=== PATIENT | male | born 1945 | race American Indian/Alaskan Native ===

== ENCOUNTER 2016-07-03 11:03 | Inpatient (IN) | payer MEDICARE ==
[2016-07-03] MEDS ORDERED: MORPHINE IV ONE (13:05)
[2016-07-03] MEDS ORDERED: ZOFRAN IV ONE (13:05)
--- NOTE | 2016-07-03 14:11 | Emergency Department Report ---
ED Abdominal Pain HPI - General Chief Complaint: Abdominal Pain Stated Complaint: ABD PAIN Time Seen by Provider: 07/03/16 12:52 Source: patient, EMS Mode of arrival: Stretcher Limitations: No Limitations - History of Present Illness Initial Comments: 71-year-old male presents to the emergency department via EMS complaining of abdominal pain. Patient reports the onset of lower abdominal sharp pain that began shortly after beginning his dialysis treatment for today. Patient was unable to tolerate his dialysis treatment due to the pain. Pain has persisted even after the treatment was discontinued. He denies associated nausea, vomiting, chest pain, or shortness of breath. There are no other complaints. MD Complaint: abdominal pain -: Sudden, This afternoon Location: suprapubic Radiation: none Severity: moderate Quality: sharp Consistency: constant Improves With: nothing Worsens With: nothing Associated Symptoms: denies other symptoms - Related Data Home Medications Medication Instructions Recorded Confirmed Last Taken Furosemide 80 mg PO DAILY 04/29/13 08/23/15 08/22/15 Gabapentin [Neurontin] 300 mg PO BID 04/29/13 08/23/15 08/22/15 Amlodipine Besylate/Benazepril 1 cap PO DAILY 06/15/14 08/23/15 08/22/15 [amLODIPine-Benazepril 10/40 mg] Carvedilol [Coreg] 25 mg PO BID 06/15/14 08/23/15 08/22/15 Hydralazine HCl [hydrALAZINE] 100 mg PO BID 06/15/14 08/23/15 08/22/15 Insulin NPH Hum/Reg Insulin Hm 10 unit SQ BID 06/15/14 08/23/15 08/22/15 [HumuLIN 70-30 Vial] Cinacalcet [Sensipar] 30 mg PO QDAY 04/04/15 08/23/15 08/22/15 Fluticasone [Flonase] 1 spray NS QDAY 04/04/15 08/23/15 08/22/15 Tiotropium [Spiriva] 18 mcg IH QDAY 04/04/15 08/23/15 08/22/15 Digoxin [Lanoxin] 0.125 mg PO DAILY 08/23/15 08/23/15 08/22/15 Mometasone/Formoterol [Dulera 200 2 puff IH BID PRN 02/08/23/15 08/22/15 Mcg/5 Mcg Inhaler] OLANzapine [ZyPREXA] 5 mg PO QHS 08/23/15 08/23/15 08/22/15 Sevelamer Carbonate [Renvela] 2.4 gm PO TIDWM 08/23/15 08/23/15 08/22/15 Previous Rx's Medication Instructions Recorded Last Taken Type Warfarin [Coumadin] 5 mg PO DAILY@1700 #20 tablet 08/24/15 Unknown Rx Allergies Allergy/AdvReac Type Severity Reaction Status Date / Time No Known Allergies Allergy Verified 07/10/14 14:19 ED Review of Systems ROS: Stated complaint: ABD PAIN Other details as noted in HPI Comment: All other systems reviewed and negative Gastrointestinal: abdominal pain ED Past Medical Hx - Past Medical History Previous Medical History?: Yes Hx Hypertension: Yes 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, expressive dysphasia) Hx Heart Attack/AMI: Yes Hx Congestive Heart Failure: Yes Hx Diabetes: Yes (since 1985) Hx GERD: Yes (hospitalized for reflux 07/08/14) Hx Renal Disease: Yes Hx Arthritis: Yes Hx Asthma: Yes Hx COPD: Yes Additional medical history: Tricuspid and mitral regurgitation - Surgical History Past Surgical History?: Yes Hx Open Heart Surgery: No Hx Internal Defibrillator: Yes (2004, 2013) Additional Surgical History: bilateral BKA - Family History Family history: hypertension - Social History Smoking Status: Never Smoker Substance Use Type: None - Medications Home Medications: Home Medications Medication Instructions Recorded Confirmed Last Taken Type Furosemide 80 mg PO DAILY 04/29/13 08/23/15 08/22/15 History Gabapentin [Neurontin] 300 mg PO BID 04/29/13 08/23/15 08/22/15 History Amlodipine Besylate/Benazepril 1 cap PO DAILY 06/15/14 08/23/15 08/22/15 History [amLODIPine-Benazepril 10/40 mg] Carvedilol [Coreg] 25 mg PO BID 06/15/14 08/23/15 08/22/15 History Hydralazine HCl [hydrALAZINE] 100 mg PO BID 06/15/14 08/23/15 08/22/15 History Insulin NPH Hum/Reg Insulin Hm 10 unit SQ BID 06/15/14 08/23/15 08/22/15 History [HumuLIN 70-30 Vial] Cinacalcet [Sensipar] 30 mg PO QDAY 04/04/15 08/23/15 08/22/15 History Fluticasone [Flonase] 1 spray NS QDAY 04/04/15 08/23/15 08/22/15 History Tiotropium [Spiriva] 18 mcg IH QDAY 04/04/15 08/23/15 08/22/15 History Digoxin [Lanoxin] 0.125 mg PO DAILY 08/23/15 08/23/15 08/22/15 History Mometasone/Formoterol [Dulera 200 2 puff IH BID PRN 08/23/15 08/23/15 08/22/15 History Mcg/5 Mcg Inhaler] OLANzapine [ZyPREXA] 5 mg PO QHS 08/23/15 08/23/15 08/22/15 History Sevelamer Carbonate [Renvela] 2.4 gm PO TIDWM 08/23/15 08/23/15 08/22/15 History Warfarin [Coumadin] 5 mg PO DAILY@1700 #20 tablet 08/24/15 Unknown Rx ED Physical Exam - General Limitations: No Limitations General appearance: alert, in no apparent distress - Head Head exam: Present: atraumatic, normocephalic - Eye Eye exam: Present: normal appearance, PERRL, EOMI - ENT ENT exam: Present: normal exam, normal orophraynx, mucous membranes moist - Neck Neck exam: Present: normal inspection, full ROM. Absent: tenderness - Respiratory Respiratory exam: Present: normal lung sounds bilaterally. Absent: respiratory distress - Cardiovascular Cardiovascular Exam: Present: regular rate, normal rhythm, normal heart sounds - GI/Abdominal GI/Abdominal exam: Present: soft, tenderness (mild suprapubic tenderness to palpation), normal bowel sounds. Absent: distended, guarding, rebound - Extremities Exam Extremities exam: Present: normal inspection (patient is status post bilateral BKA), full ROM. Absent: tenderness - Back Exam Back exam: Present: normal inspection, full ROM. Absent: tenderness - Neurological Exam Neurological exam: Present: alert, oriented X3, motor sensory deficit - Skin Skin exam: Present: warm, dry, intact ED Course Vital Signs 07/03/16 11:20 Temperature 97.6 F Pulse Rate 60 Blood Pressure 154/51 O2 Sat by Pulse 100 Oximetry ED Medical Decision Making - Lab Data Result diagrams: 07/03/16 14:26 07/03/16 14:26 - Medical Decision Making Laboratory results reviewed and discussed with the patient. I have spoken with Dr. Eldridge, nephrology. CT of the abdomen and pelvis has been requested by the hospitalist, who will admit. - Differential Diagnosis abdominal pain, bowel ischemia, bladder spasm Critical care attestation.: If time is entered above; I have spent that time in minutes in the direct care of this critically ill patient, excluding procedure time. ED Disposition Clinical Impression: End stage renal disease on dialysis, Suprapubic abdominal pain Disposition: OP ADMITTED IP TO THIS HOSP Is pt being admited?: Yes Condition: Stable Time of Disposition: 15:18
[2016-07-03 14:34] LABS: Basophils % (Auto) 1.1 % (0.0-1.8); Eosinophils % (Auto) 7.8 % (0.0-4.3); Hematocrit 37.3 % (35.5-45.6); Mean Corpuscular HGB Conc 32 % (32-34); Mean Corpuscular Hemoglobin 30 pg (28-32); Mean Corpuscular Volume 92 fl (84-94); Platelet Count 90 K/mm3 (140-440); Red Blood Count 4.06 M/mm3 (3.65-5.03); Red Cell Distribution Width 20.2 % (13.2-15.2)
[2016-07-03 14:54] LABS: Alanine Aminotransferase 13 units/L (7-56); Albumin 3.8 g/dL (3.9-5); Alkaline Phosphatase 84 units/L (35-129); Anion Gap 23 mmol/L; BUN/Creatinine Ratio 4.81; Bilirubin,Total 0.4 mg/dL (0.1-1.2); Blood Urea Nitrogen 40 mg/dL (9-20); Calcium 8.9 mg/dL (8.4-10.2); Carbon Dioxide 27 mmol/L (22-30); Glucose 141 mg/dL (75-100); Potassium 4.6 mmol/L (3.6-5.0); Sodium 139 mmol/L (137-145); Total Protein 7.8 g/dL (6.3-8.2)
[2016-07-03 14:55] LABS: Bilirubin,Direct < 0.2 mg/dL (0-0.2)
--- NOTE | 2016-07-03 15:51 | Admit Criteria Form ---
Admission Criteria Documentation: RENAL FAILURE, CHRONIC Clinical Indications for Admission to Inpatient Care (Place 'X' for any and all applicable criteria): Admission is indicated for ANY ONE of the following (1)(2)(3)(4)(5): [ X]I. Inpatient admission required rather than observation care (Use Renal Failure, Chronic: Observation Care Criteria as appropriate) because of ANY ONE of the following: [ ]a) Volume overload or uremic symptoms (eg, clinically significant pulmonary edema, hypertension, pericarditis, acidosis) too severe for, or not responsive (eg, for over 24 hours) to emergency department or observation care dialysis or treatment regimen (11) [ ]b) Hemodynamic instability that is severe or persistent [ ]c) Respiratory distress that is severe or persistent (11) [ ]d) Clinically significant electrolyte abnormality that requires inpatient care (eg,hyperkalemia with severe ECG findings)[B] [ ]e) Supplement O2 or respiratory therapy for over 24hrs that is performable only in acute inpatient setting [ ]f) Continuous IV infusion of anticoagulation, platelet inhibitor, vasoactive, or Antiarrhythmic medication (15), [ ]g) Pulmonary artery catheter monitoring [ ]h) Temporary pacemaker placement [ ]i) Emergent pericardiocentesis [ X]j) Other condition, treatment or monitoring requiring inpatient admission [ ]II. Unexplained syncope [A] [ ]III. Recurrent seizures [ ]IV. Severe infections not treatable in outpatient setting (eg, peritonitis)(9 ) [ ]V. Cardiac arrhythmias of immediate concern [ ]. Encephalopathy [ ]VII.Bleeding abnormalities (eg, platelet dysfunction) with active (eg, gastrointestinal) bleeding Extended stay beyond goal length of stay may be needed for (3)(4)(35)(36): [ ]a) Continuing uremic complications [ ]b) Comorbidities or complications The original [employer] content created by [employer] has been revised. The portions of the content which have been revised are identified through the use of italic text or in bold, and [employer] [facility] [employer] has neither reviewed nor approved the modified material. All other unmodified content is copyright [employer]. Please see references footnoted in the original [facility] [facility] edition 2016 Admission Criteria Met: Yes
--- NOTE | 2016-07-03 16:37 | Cat Scan Report ---
CT ABDOMEN AND PELVIS WITHOUT CONTRAST: INDICATION: Lower abdominal pain while on dialysis. COMPARISON: 04/09/2015 FINDINGS: Noncontrast abdomen and pelvis CT performed. LUNG BASES: Much improved cardiomegaly and pericardial fluid, now within normal limits. Right lung base also now clear. Atherosclerotic calcifications and streak artifact from pacemaker leads again noted. Nonspecific distal esophageal wall thickening, not excluded for gastroesophageal reflux and/or hiatal hernia, amongst others. ABDOMEN: Please note that sensitivity to detect small visceral lesions is limited due to the absence of intravenous or oral contrast. Few faintly calcified gallstones dependently near the neck again noted measuring up to approximately 1.8 cm in size. Small splenic calcified granuloma. Otherwise, grossly unremarkable unenhanced liver, spleen, pancreas, adrenals, nonaneurysmal abdominal aorta and IVC. Extensive atherosclerotic vascular calcifications. No ascites or definite size significant adenopathy. Nonopacified GI tract evaluation limited, though grossly nonobstructive. Approximately 2.5 cm midline duodenal diverticulum along the third portion may again be noted. Normal appendix. Small fat-containing umbilical hernia with a transverse neck of approximately 1 cm. Kidneys again nonhydronephrotic bilaterally, though with mild increased perinephric stranding. Bilateral renal cortical hypodensities, predominantly subcentimeter with the largest left interpolar approximately 3.5 cm simple cyst again noted. PELVIS: Stable, suboptimally distended urinary bladder, seminal vesicles, prostate and rectosigmoid. No free fluid or significant adenopathy. Mild spinal bony degenerative changes and L1-L2 vacuum disc phenomenon again noted. Bilateral SI joint degenerative bridging with obliteration of joint space as well. CONCLUSION: 1. No acute CT abnormality with interval improvement in cardiomegaly and effusions since April 2015, as described. 2. Few other incidental findings, including cholelithiasis and extensive atherosclerotic vascular calcifications in this patient with underlying renal failure, amongst others, as above. Thank you for the opportunity to participate in this patient's care.
[2016-07-03] MEDS ORDERED: NON-FORMULARY (Mometasone/Formoterol [Dulera 200 Mcg/5 Mcg Inhaler] 2 PUFF) IH PRN (21:15)
[2016-07-03] MEDS ORDERED: BENAZEPRIL PO SCH (21:15)
[2016-07-03] MEDS ORDERED: AMLODIPINE BESYLATE PO SCH (21:15)
[2016-07-03] MEDS ORDERED: SPIRIVA IH SCH (21:15)
[2016-07-03] MEDS ORDERED: FUROSEMIDE 80 MG PO SCH (21:15)
--- NOTE | 2016-07-03 21:15 | Event Note ---
Date: 07/03/16 See H/p in reports Acute abdominal pain ESRD needing dialysis IDDM HTN HLD PAD Afib PN Depression
[2016-07-03] MEDS ORDERED: ZOFRAN IV PRN (21:39)
[2016-07-03] MEDS ORDERED: MILK OF MAGNESIA PO PRN (21:39)
[2016-07-03] MEDS ORDERED: TYLENOL PO PRN (21:39)
[2016-07-03] MEDS ORDERED: DULCOLAX PR PRN (21:39)
[2016-07-03] MEDS ORDERED: NOVOLOG SUB-Q ONE (21:54)
[2016-07-03] MEDS: NEURONTIN PO SCH (22:45)
[2016-07-03] MEDS: APRESOLINE PO SCH (22:48)
[2016-07-03] MEDS: LASIX PO SCH (23:03)
[2016-07-03] MEDS: SENSIPAR PO SCH (23:06)
[2016-07-03] MEDS: NORVASC PO SCH (23:13)
[2016-07-03 23:25] LABS: INR 4.38 (0.87-1.13)
--- NOTE | 2016-07-03 23:52 | History and Physical Report ---
CHIEF COMPLAINT: Abdominal pain since morning. HISTORY OF PRESENT ILLNESS: A 71-year-old -Citizen Of [place] male with multiple medical problems, bilateral below knee amputations, hypertension, end-stage renal disease, insulin-dependent diabetes, COPD, atrial fibrillation, and psychosis, who comes in for acute abdominal pain since late morning. The patient was undergoing dialysis and developed suprapubic pain, which is sharp, unable to tolerate dialysis because of the pain. The patient's pain has persisted even after the treatment was discontinued. Denies nausea, vomiting, diarrhea, chest pain, or shortness of breath. The pain is about 8 to 9 on a scale of 1 to 10, sharp and crampy pain in the suprapubic and periumbilical region. No fever, no chills. PAST MEDICAL HISTORY: As mentioned, significant for hypertension, insulin-dependent diabetes, cerebrovascular accident in 2012, bilateral below the knee amputations, insulin-dependent diabetes, end-stage renal disease, on dialysis, arthritis, asthma/COPD, and atrial fibrillation. PAST SURGICAL HISTORY: Internal defibrillator 2004, replaced in 2013 and bilateral BKA. FAMILY HISTORY: Significant for hypertension. SOCIAL HISTORY: He was never a smoker in the past. CURRENT HOME MEDICATIONS: Lasix 80 mg daily, Neurontin 300 mg twice a day, amlodipine 10/40 one capsule daily, Coreg 25 mg b.i.d., hydralazine 100 mg twice a day, insulin 70/30 ten units b.i.d., Sensipar 30 mg p.o. daily, Flonase 1 spray daily, Spiriva 18 mcg p.o. daily, Lanoxin 0.125 mg p.o. daily, Dulera 2 puffs b.i.d., Zyprexa 5 mg p.o. at bedtime, Renvela p.o. t.i.d. REVIEW OF SYSTEMS: Significant for acute onset of abdominal pain, suprapubic and periumbilical. Otherwise, review of systems is essentially negative. A 14-point review of systems done. PHYSICAL EXAMINATION: GENERAL: Elderly male, lying in bed. VITAL SIGNS: Blood pressure is 154/51, temperature is 97.6, pulse is 60, and sat is 100%. HEENT: Unremarkable. Pupils are equal and reactive. NECK: Supple, no lymphadenopathy, no thyromegaly. LUNGS: Clear to auscultation and percussion. Good air entry. ABDOMEN: Soft and benign. No hepatosplenomegaly. No guarding, no rigidity. Hernial orifices are normal. Some suprapubic tenderness present. EXTREMITIES: Revealed bilateral below knee amputations. No sacral decubitus. CENTRAL NERVOUS SYSTEM: Nonfocal exam. Not ____ at this point. LABORATORY DATA: Significant for white count of 8000, H and H are 12.0 and hematocrit is 37.3, and platelet count is 90,000. Sodium is 139, potassium is 4.6, bicarbonate is 27, BUN and creatinine are 40 and 8.3, AST of 13, ALT of 13, albumin is 3.8. EKG shows normal EKG and not available. CT of the abdomen shows cholelithiasis, it was done without contrast. No acute CT abnormality. Extensive atherosclerotic vascular calcifications with underlying renal failure. Liver, spleen and kidneys were normal. Kidneys are small. Calcified gallstones near the neck noted measuring up to 1.8 cm. In summary, CAT scan was other than atherosclerotic, vascular calcifications and cholelithiasis is normal. ASSESSMENT AND PLAN: 1. Acute abdominal pain, admitted for observation. We will get the Surgery input. We will keep him clear liquids for the time being. Dilaudid 0.5 q. 3 hours and Zofran 4 mg q. 3 hours p.r.n. 2. Insulin-dependent diabetes. Continue coverage. The patient is on clear liquids for the time being. 3. Hypertension. Continue amlodipine/benazepril 10/40 p.o. daily. 4. Peripheral neuropathy. Continue Neurontin 300 mg twice a day. 5. Congestive heart failure. Continue Lasix 80 mg p.o. daily. The patient does not make any urine. 6. Chronic obstructive pulmonary disease. Continue Dulera 100/5 two puffs b.i.d. 7. Atrial fibrillation. Continue Coumadin and digoxin 0.125 daily. 8. End-stage renal disease. Continue dialysis and also Renvela and Sensipar. Also, Dr. Eldridge is consulted. 9. Deep venous thrombosis prophylaxis, Lovenox 30 mg subcutaneous daily. A surgical consultation with Surgery is also requested. JOB# [id number] VSM/NTS
[2016-07-04] MEDS: ZESTRIL PO SCH ×2 (01:03→11:38)
[2016-07-04] MEDS: COREG PO SCH ×2 (01:04→11:37)
[2016-07-04] MEDS: FLONASE NS SCH ×2 (01:05→12:27)
[2016-07-04 06:44] LABS: Eosinophils % (Auto) 10.5 % (0.0-4.3); Hematocrit 34.5 % (35.5-45.6); Hemoglobin 10.7 gm/dl (11.8-15.2); Mean Corpuscular HGB Conc 31 % (32-34); Mean Corpuscular Hemoglobin 29 pg (28-32); Mean Corpuscular Volume 94 fl (84-94); Platelet Count 115 K/mm3 (140-440); Red Blood Count 3.68 M/mm3 (3.65-5.03); White Blood Count 8.4 K/mm3 (4.5-11.0)
[2016-07-04 06:56] LABS: INR 4.68 (0.87-1.13)
[2016-07-04 06:58] LABS: Albumin 3.5 g/dL (3.9-5); BUN/Creatinine Ratio 5.15; Bilirubin,Total 0.4 mg/dL (0.1-1.2); Calcium 8.7 mg/dL (8.4-10.2); Chloride 96.4 mmol/L (98-107); Potassium 4.8 mmol/L (3.6-5.0); Total Protein 6.9 g/dL (6.3-8.2)
[2016-07-04 07:06] LABS: Red Cell Distribution Width 20.8 % (13.2-15.2)
--- NOTE | 2016-07-04 07:51 | Progress Note ---
Assessment and Plan Assessment and plan: Lower abdominal pain - Patient's pain is subsided with pain medication - Surgery consult is placed End-stage renal disease on hemodialysis - Nephrology consulted IDDM - Patient is on insulin regimen Chronic systolic CHF - Stable - Continue home medications A. fib - On warfarin - INR is supratherapeutic - We will hold the next dose Hypertension - Uncontrolled - Continue all medications - May normalized after hemodialysis DVT prophylaxis - INR is supratherapeutic Disposition - Continue inpatient care History Interval history: No new complaints, no nursing issues overnight. No abdominal pain. Hospitalist Physical - Physical exam Narrative exam: Not in cardiopulmonary distress. The patient appeared well nourished and normally developed. Vital signs as documented. Head exam is unremarkable. No scleral icterus . Neck is without jugular venous distension, thyromegaly, or carotid bruits. Lungs are clear to auscultation. Cardiac exam reveals regular rate and Rhythm. First and second heart sounds normal. No murmurs, rubs or gallops. Abdominal exam reveals normal bowel sounds, no masses, no organomegaly and no aortic enlargement. W[employer]ATING O[employer]ATOR METAL: Alert and oriented 3. No focal weakness. - Constitutional Vitals: Temp Pulse Resp BP Pulse Ox 97.7 F 65 20 151/69 99 07/04/16 00:55 07/04/16 01:04 07/04/16 00:55 07/04/16 01:04 07/04/16 00:55 Results - Labs CBC & Chem 7: 07/04/16 06:11 07/04/16 06:11 Labs: Laboratory Last Values WBC 8.4 K/mm3 (4.5-11.0) 07/04/16 06:11 RBC 3.68 M/mm3 (3.65-5.03) 07/04/16 06:11 Hgb 10.7 gm/dl (11.8-15.2) L 07/04/16 06:11 Hct 34.5 % (35.5-45.6) L 07/04/16 06:11 MCV 94 fl (84-94) 07/04/16 06:11 MCH 29 pg (28-32) 07/04/16 06:11 MCHC 31 % (32-34) L 07/04/16 06:11 RDW 20.8 % (13.2-15.2) H 07/04/16 06:11 Plt Count 115 K/mm3 (140-440) L 07/04/16 06:11 Lymph % (Auto) 19.2 % (13.4-35.0) 07/04/16 06:11 [place] % (Auto) 9.1 % (0.0-7.3) H 07/04/16 06:11 Eos % (Auto) 10.5 % (0.0-4.3) H 07/04/16 06:11 Baso % (Auto) 1.0 % (0.0-1.8) 07/04/16 06:11 Lymph # 1.6 K/mm3 (1.2-5.4) 07/04/16 06:11 [place] # 0.8 K/mm3 (0.0-0.8) 07/04/16 06:11 Eos # 0.9 K/mm3 (0.0-0.4) H 07/04/16 06:11 Baso # 0.1 K/mm3 (0.0-0.1) 07/04/16 06:11 Seg Neutrophils % 60.2 % (40.0-70.0) 07/04/16 06:11 Seg Neutrophils # 5.1 K/mm3 (1.8-7.7) 07/04/16 06:11 PT 44.6 Sec. (12.2-14.9) H 07/04/16 06:11 INR 4.68 (0.87-1.13) H 07/04/16 06:11 Sodium 143 mmol/L (137-145) 07/04/16 06:11 Potassium 4.8 mmol/L (3.6-5.0) 07/04/16 06:11 Chloride 96.4 mmol/L (98-107) L 07/04/16 06:11 Carbon Dioxide 28 mmol/L (22-30) 07/04/16 06:11 Anion Gap 23 mmol/L 07/04/16 06:11 BUN 49 mg/dL (9-20) H 07/04/16 06:11 Creatinine 9.5 mg/dL (0.8-1.5) H 07/04/16 06:11 Estimated GFR 7 ml/min 07/04/16 06:11 BUN/Creatinine Ratio 5.15 % 07/04/16 06:11 Glucose 81 mg/dL (75-100) 07/04/16 06:11 POC Glucose 93 (70-105) 07/04/16 06:51 Hemoglobin A1c 7.8 % (4-6) H 07/04/16 06:11 Lactic Acid 1.2 mmol/L (0.7-2.0) 07/03/16 14:26 Calcium 8.7 mg/dL (8.4-10.2) 07/04/16 06:11 Total Bilirubin 0.4 mg/dL (0.1-1.2) 07/04/16 06:11 Direct Bilirubin < 0.2 mg/dL (0-0.2) 07/03/16 14:26 AST 16 units/L (5-40) 07/04/16 06:11 ALT 11 units/L (7-56) 07/04/16 06:11 Alkaline Phosphatase 76 units/L (35-129) 07/04/16 06:11 Total Protein 6.9 g/dL (6.3-8.2) 07/04/16 06:11 Albumin 3.5 g/dL (3.9-5) L 07/04/16 06:11 Albumin/Globulin Ratio 1.0 % 07/04/16 06:11
[2016-07-04] MEDS ORDERED: SEVELAMER CARBONATE 2.4 GM PO SCH (08:00)
[2016-07-04] MEDS ORDERED: NACL 0.9% 1000 ML 100 ML IV PRN (08:07)
[2016-07-04] MEDS ORDERED: HEPARIN 10,000 UNITS/10 ML IV PRN (08:07)
--- NOTE | 2016-07-04 08:51 | Consultation ---
History of Present Illness - Reason for Consult Consult date: 07/04/16 end stage renal disease Requesting physician: DAIVD CARRILLO - History of Present Illness 71-year-old male with a history of end-stage renal disease, diabetes mellitus, hypertension and previous cerebrovascular accident and peripheral vascular disease admitted on account of sudden onset of lower abdominal pain while on dialysis. Patient describes it as a sharp pain in his suprapubic area nonradiating which was moderate to severe and constant. No known aggravating or relieving factors. Pain persisted for more than 30 minutes and patient had to stop the dialysis treatment and EMS was called and he was brought to the emergency room for further evaluation. Patient does not make urine. He denies any diarrhea or constipation. No hematemesis, melena or hematochezia. No nausea or vomiting. No fever or chills. He has not had a similar pain in the past. He does have a history of peptic ulcer disease but pain is not the same. I'm consulted to assist in providing dialysis, managing fluid and electrolyte abnormalities and controlling blood pressure. 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 denies: alcohol abuse, prescription drug abuse, IV drug use Family history: diabetes, hypertension Medications and Allergies Allergies Allergy/AdvReac Type Severity Reaction Status Date / Time No Known Allergies Allergy Verified 07/10/14 14:19 Home Medications Medication Instructions Recorded Confirmed Last Taken Type Furosemide 80 mg PO DAILY 04/29/13 07/03/16 08/22/15 History Gabapentin [Neurontin] 300 mg PO BID 04/29/13 07/03/16 08/22/15 History Amlodipine Besylate/Benazepril 1 cap PO DAILY 06/15/14 07/03/16 08/22/15 History [amLODIPine-Benazepril 10/40 mg] Carvedilol [Coreg] 25 mg PO BID 06/15/14 07/03/16 08/22/15 History Hydralazine HCl [hydrALAZINE] 100 mg PO BID 06/15/14 07/03/16 08/22/15 History Insulin NPH Hum/Reg Insulin Hm 10 unit SQ BID 06/15/14 07/03/16 08/22/15 History [HumuLIN 70-30 Vial] Cinacalcet [Sensipar] 30 mg PO QDAY 04/04/15 07/03/16 08/22/15 History Fluticasone [Flonase] 1 spray NS QDAY 04/04/15 07/03/16 08/22/15 History Tiotropium [Spiriva] 18 mcg IH QDAY 04/04/15 07/03/16 08/22/15 History Digoxin [Lanoxin] 0.125 mg PO DAILY 08/23/15 07/03/16 08/22/15 History Mometasone/Formoterol [Dulera 200 2 puff IH BID PRN 08/23/15 07/03/16 08/22/15 History Mcg/5 Mcg Inhaler] OLANzapine [ZyPREXA] 5 mg PO QHS 08/23/15 07/03/16 08/22/15 History Sevelamer Carbonate [Renvela] 2.4 gm PO TIDWM 08/23/15 07/03/16 08/22/15 History Warfarin [Coumadin] 5 mg PO DAILY@1700 #20 tablet 08/24/15 07/03/16 Unknown Rx Active Meds: Active Medications Acetaminophen (Tylenol) 650 mg PO Q4H PRN PRN Reason: Pain MILD(1-3)/Fever >100.5/DYE Amlodipine Besylate (Norvasc) 10 mg PO DAILY [facility] Last Admin: 07/03/16 23:13 Dose: 10 mg Arformoterol Tartrate (Brovana Nebu) 15 mcg IH Q12HRT [facility] Bisacodyl (Dulcolax) 10 mg NV QDAY PRN PRN Reason: Constipation unrelieved by MOM Budesonide (Pulmicort) 1 mg IH Q12HRT [facility] Carvedilol (Coreg) 25 mg PO BID [facility] Last Admin: 07/04/16 01:04 Dose: 25 mg Cinacalcet (Sensipar) 30 mg PO QDAY [facility] Last Admin: 07/03/16 23:06 Dose: 30 mg Digoxin (Lanoxin) 0.125 mg PO Q48H [facility] Epoetin [place] (Epogen) 20,000 unit IV CHAZ PRN PRN Reason: hemodialysis Fluticasone Propionate (Flonase) 100 mcg NS QDAY [facility] Last Admin: 07/04/16 01:05 Dose: 100 mcg Furosemide (Lasix) 80 mg PO DAILY [facility] Last Admin: 07/03/16 23:03 Dose: 80 mg Gabapentin (Neurontin) 300 mg PO BID [facility] Last Admin: 07/03/16 22:45 Dose: 300 mg Heparin Sodium (Porcine) (Heparin 10,000 Units/10 Ml) 1,000 unit IV CHAZ PRN PRN Reason: hemodialysis Hydralazine HCl (Apresoline) 100 mg PO BID [facility] Last Admin: 07/03/16 22:48 Dose: 100 mg Sodium Chloride (Nacl 0.9% 1000 Ml) 100 mls @ 999 mls/hr IV CHAZ PRN PRN Reason: Hypotension Insulin Human Isoph/Insulin Regular (Novolin 70/30) 10 unit SUB-Q BIDDIAB [facility] Last Admin: 07/03/16 23:03 Dose: 10 unit Lisinopril (Zestril) 40 mg PO QDAY [facility] Last Admin: 07/04/16 01:03 Dose: 40 mg Magnesium Hydroxide (Milk Of Magnesia) 30 ml PO Q4H PRN PRN Reason: Constipation Olanzapine (Zyprexa) 5 mg PO QHS [facility] Last Admin: 07/03/16 22:48 Dose: 5 mg Ondansetron HCl (Zofran) 4 mg IV Q8H PRN PRN Reason: N/V unrelieved by Reglan Sevelamer Carbonate (Renvela) 2,400 mg PO AC [facility] Tiotropium [place] (Spiriva) 1 puff IH Q24HR [facility] Warfarin Sodium (Coumadin Pharmacy To Dose) 1 each PO PKCONSULT [facility] Warfarin Sodium (Coumadin No Dose Today) 1 each PO 1700 ONE Stop: 07/04/16 17:01 Review of Systems All systems: negative (Constitutional: no fever or chills. No anorexia or weight loss. HEENT: No sore throat or sinus drainage no hearing or vision impairment . Cardiovascular: No chest pain, shortness of breath, palpitations, lower extremity swelling or dizziness. Respiratory: No cough, sputum, shortness of breath, hemoptysis or wheezing. Gastrointestinal: See history of present illness. Genitourinary: No frequency urgency dysuria or hematuria. hematologic: No abnormal bleeding or bruising. Integumentary: no pruritus or rash. Neurological: No headache no focal weakness or numbness, no syncope or seizures. Musculoskeletal: No joint pains no stiffness. Psychiatry: no anxiety or depression) Exam - Vital Signs Vital signs: Vital Signs Temp Pulse BP Pulse Ox 97.6 F 60 154/51 100 07/03/16 11:20 07/03/16 11:20 07/03/16 11:20 07/03/16 11:20 - Physical Exam Narrative exam: Elderly -[place] male lying in bed in no acute distress HEENT normocephalic atraumatic, pupils equal reactive to light, pink, clear oropharynx Neck supple, no thyromegaly no jugular venous distention CVS S1-S2 regular rate rhythm without murmur, rub or gallop Chest clear to auscultation Abdomen soft nondistended nontender no organomegaly no bruit bowel sounds present Extremities no edema bilateral below knee amputations Genitourinary deferred Neuro awake, alert oriented x3 no gross deficit Results - Lab Results 07/04/16 06:11 07/04/16 06:11 Most recent lab results Calcium 8.7 mg/dL (8.4-10.2) 07/04/16 06:11 Assessment and Plan - Patient Problems (1) Suprapubic abdominal pain Current Visit: Yes Status: Acute Plan to address problem: Surgery has been consulted though CT scan showed gallstones and was extensive vascular calcifications with normal echo a hernia and bilateral renal cysts but no cause for an acute abdomen. (2) End stage renal disease on dialysis Current Visit: Yes Status: Chronic Plan to address problem: Hemodialysis today and then resume regular dialysis schedule on Thursday, and Thursday (3) Diabetes mellitus Current Visit: No Status: Acute Qualifiers: Diabetes mellitus type: type 1 Diabetes mellitus complication status: with skin complications Diabetes mellitus complication detail: with other skin complication Qualified Code(s): E10.628 - Type 1 diabetes mellitus with other skin complications Plan to address problem: Blood sugar control by primary attending (4) Anemia due to chronic kidney disease Current Visit: No Status: Chronic Plan to address problem: Give erythropoietin on dialysis (5) Hypertensive chronic kidney disease with stage 5 chronic kidney disease or end stage renal disease Current Visit: Yes Status: Acute Plan to address problem: Follow-up blood pressure on current medications
[2016-07-04] MEDS: RENVELA PO SCH ×3 (09:00→18:13)
[2016-07-04] MEDS ORDERED: LOVENOX SUB-Q SCH (10:00)
[2016-07-04] MEDS: PULMICORT IH SCH ×2 (10:13→20:00)
[2016-07-04] MEDS: BROVANA NEBU IH SCH ×2 (10:15→20:00)
[2016-07-04] MEDS: SPIRIVA IH SCH (10:20)
[2016-07-04] MEDS: APRESOLINE PO SCH (11:37)
[2016-07-04] MEDS: LASIX PO SCH (11:37)
[2016-07-04] MEDS: NEURONTIN PO SCH (11:38)
[2016-07-04] MEDS: NORVASC PO SCH (11:39)
[2016-07-04] MEDS: SENSIPAR PO SCH (12:28)
--- NOTE | 2016-07-04 16:08 | Consultation ---
History of Present Illness Consult date: 07/04/16 Reason for consult: abdominal pain - History of present illness History of present illness: This is a 71-year-old gentleman with long history of intermittent abdominal pain who was sent to the emergency room from dialysis yesterday because of crampy lower abdominal pain. Currently he denies any further abdominal pain. He denies nausea or vomiting. Denies fever and chills. Reports he is passing gas but has not had a bowel movement today. His family member at bedside ( ) reports that he has a long history of intermittent abdominal pain usually associated with constipation. He is tolerating a diet without pain or nausea and vomiting. 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 denies: alcohol abuse, prescription drug abuse, IV drug use Family history: diabetes, hypertension Medications and Allergies Allergies Allergy/AdvReac Type Severity Reaction Status Date / Time No Known Allergies Allergy Verified 07/10/14 14:19 Home Medications Medication Instructions Recorded Confirmed Last Taken Type Furosemide 80 mg PO DAILY 04/29/13 07/03/16 08/22/15 History Gabapentin [Neurontin] 300 mg PO BID 04/29/13 07/03/16 08/22/15 History Amlodipine Besylate/Benazepril 1 cap PO DAILY 06/15/14 07/03/16 08/22/15 History [amLODIPine-Benazepril 10/40 mg] Carvedilol [Coreg] 25 mg PO BID 06/15/14 07/03/16 08/22/15 History Hydralazine HCl [hydrALAZINE] 100 mg PO BID 06/15/14 07/03/16 08/22/15 History Insulin NPH Hum/Reg Insulin Hm 10 unit SQ BID 06/15/14 07/03/16 08/22/15 History [HumuLIN 70-30 Vial] Cinacalcet [Sensipar] 30 mg PO QDAY 04/04/15 07/03/16 08/22/15 History Fluticasone [Flonase] 1 spray NS QDAY 04/04/15 07/03/16 08/22/15 History Tiotropium [Spiriva] 18 mcg IH QDAY 04/04/15 07/03/16 08/22/15 History Digoxin [Lanoxin] 0.125 mg PO DAILY 08/23/15 07/03/16 08/22/15 History Mometasone/Formoterol [Dulera 200 2 puff IH BID PRN 08/23/15 07/03/16 08/22/15 History Mcg/5 Mcg Inhaler] OLANzapine [ZyPREXA] 5 mg PO QHS 08/23/15 07/03/16 08/22/15 History Sevelamer Carbonate [Renvela] 2.4 gm PO TIDWM 08/23/15 07/03/16 08/22/15 History Warfarin [Coumadin] 5 mg PO DAILY@1700 #20 tablet 08/24/15 07/03/16 Unknown Rx Active Meds: Active Medications Acetaminophen (Tylenol) 650 mg PO Q4H PRN PRN Reason: Pain MILD(1-3)/Fever >100.5/DYE Amlodipine Besylate (Norvasc) 10 mg PO DAILY [facility] Last Admin: 07/04/16 11:39 Dose: Not Given Arformoterol Tartrate (Brovana Nebu) 15 mcg IH Q12HRT [facility] Bisacodyl (Dulcolax) 10 mg ID QDAY PRN PRN Reason: Constipation unrelieved by MOM Budesonide (Pulmicort) 1 mg IH Q12HRT [facility] Last Admin: 07/04/16 10:13 Dose: 1 mg Carvedilol (Coreg) 25 mg PO BID [facility] Last Admin: 07/04/16 11:37 Dose: Not Given Cinacalcet (Sensipar) 30 mg PO QDAY [facility] Last Admin: 07/04/16 12:28 Dose: 30 mg Digoxin (Lanoxin) 0.125 mg PO Q48H [facility] Epoetin [place] (Epogen) 20,000 unit IV CHAZ PRN PRN Reason: hemodialysis Fluticasone Propionate (Flonase) 100 mcg NS QDAY [facility] Last Admin: 07/04/16 12:27 Dose: 100 mcg Furosemide (Lasix) 80 mg PO DAILY [facility] Last Admin: 07/04/16 11:37 Dose: Not Given Gabapentin (Neurontin) 300 mg PO BID [facility] Last Admin: 07/04/16 11:38 Dose: Not Given Heparin Sodium (Porcine) (Heparin 10,000 Units/10 Ml) 1,000 unit IV CHAZ PRN PRN Reason: hemodialysis Hydralazine HCl (Apresoline) 100 mg PO BID [facility] Last Admin: 07/04/16 11:37 Dose: Not Given Sodium Chloride (Nacl 0.9% 1000 Ml) 100 mls @ 999 mls/hr IV CHAZ PRN PRN Reason: Hypotension Insulin Human Isoph/Insulin Regular (Novolin 70/30) 10 unit SUB-Q BIDDIAB [facility] Last Admin: 07/04/16 09:01 Dose: 10 unit Lisinopril (Zestril) 40 mg PO QDAY [facility] Last Admin: 07/04/16 11:38 Dose: Not Given Magnesium Hydroxide (Milk Of Magnesia) 30 ml PO Q4H PRN PRN Reason: Constipation Olanzapine (Zyprexa) 5 mg PO QHS [facility] Last Admin: 07/03/16 22:48 Dose: 5 mg Ondansetron HCl (Zofran) 4 mg IV Q8H PRN PRN Reason: N/V unrelieved by Tod Sevelamer Carbonate (Renvela) 2,400 mg PO AC [facility] Last Admin: 07/04/16 12:27 Dose: 2,400 mg Tiotropium [place] (Spiriva) 1 puff IH Q24HR [facility] Warfarin Sodium (Coumadin Pharmacy To Dose) 1 each PO PKCONSULT [facility] Warfarin Sodium (Coumadin No Dose Today) 1 each PO 1700 ONE Stop: 07/04/16 17:01 Exam Vital Signs Temp Pulse BP Pulse Ox 97.6 F 60 154/51 100 07/03/16 11:20 07/03/16 11:20 07/03/16 11:20 07/03/16 11:20 Vital Signs Temp 97.5 F L 07/04/16 07:30 Pulse 52 L 07/04/16 07:30 Resp 20 07/04/16 07:30 BP 113/56 07/04/16 07:30 Pulse Ox 99 07/04/16 00:55 Intake & Output 07/03/16 07/04/16 07/04/16 18:59 06:59 18:59 Weight 86.183 kg 86.183 kg 86.183 kg Other: Voiding Method Urinal - General physical appearance Positive: well developed, no distress - Neck Positive: no masses - Respiratory Positive: clear to auscultation - Abdomen Abdomen: Present: soft, bowel sounds normal. Absent: tender, distended, masses , rebound, guarding, rigid - Neurologic Neurologic: alert and oriented to time, place and person Results - Labs 07/04/16 06:11 07/04/16 06:11 Abnormal lab results 07/03/16 07/03/16 07/04/16 Range/Units 22:33 22:59 06:11 Hgb (11.8-15.2) gm/dl Hct (35.5-45.6) % MCHC (32-34) % RDW (13.2-15.2) % Plt Count (140-440) K/mm3 [place] % (Auto) (0.0-7.3) % Eos % (Auto) (0.0-4.3) % Eos # (0.0-0.4) K/mm3 PT 42.3 H 44.6 H (12.2-14.9) Sec. INR 4.38 H 4.68 H (0.87-1.13) Chloride (98-107) mmol/L BUN (9-20) mg/dL Creatinine (0.8-1.5) mg/dL POC Glucose 200 H (70-105) Hemoglobin A1c (4-6) % Albumin (3.9-5) g/dL 07/04/16 07/04/16 07/04/16 Range/Units 06:11 06:11 06:11 Hgb 10.7 L (11.8-15.2) gm/dl Hct 34.5 L (35.5-45.6) % MCHC 31 L (32-34) % RDW 20.8 H (13.2-15.2) % Plt Count 115 L (140-440) K/mm3 [place] % (Auto) 9.1 H (0.0-7.3) % Eos % (Auto) 10.5 H (0.0-4.3) % Eos # 0.9 H (0.0-0.4) K/mm3 PT (12.2-14.9) Sec. INR (0.87-1.13) Chloride 96.4 L (98-107) mmol/L BUN 49 H (9-20) mg/dL Creatinine 9.5 H (0.8-1.5) mg/dL POC Glucose (70-105) Hemoglobin A1c 7.8 H (4-6) % Albumin 3.5 L (3.9-5) g/dL Diabetes panel 07/04/16 07/04/16 Range/Units 06:11 06:11 Sodium 143 (137-145) mmol/L Potassium 4.8 (3.6-5.0) mmol/L Chloride 96.4 L (98-107) mmol/L Carbon Dioxide 28 (22-30) mmol/L BUN 49 H (9-20) mg/dL Creatinine 9.5 H (0.8-1.5) mg/dL Glucose 81 (75-100) mg/dL Hemoglobin A1c 7.8 H (4-6) % Calcium 8.7 (8.4-10.2) mg/dL AST 16 (5-40) units/L ALT 11 (7-56) units/L Alkaline Phosphatase 76 (35-129) units/L Total Protein 6.9 (6.3-8.2) g/dL Albumin 3.5 L (3.9-5) g/dL Calcium panel 07/04/16 Range/Units 06:11 Calcium 8.7 (8.4-10.2) mg/dL Albumin 3.5 L (3.9-5) g/dL Pituitary panel 07/04/16 Range/Units 06:11 Sodium 143 (137-145) mmol/L Potassium 4.8 (3.6-5.0) mmol/L Chloride 96.4 L (98-107) mmol/L Carbon Dioxide 28 (22-30) mmol/L BUN 49 H (9-20) mg/dL Creatinine 9.5 H (0.8-1.5) mg/dL Glucose 81 (75-100) mg/dL Calcium 8.7 (8.4-10.2) mg/dL Adrenal panel 07/04/16 Range/Units 06:11 Sodium 143 (137-145) mmol/L Potassium 4.8 (3.6-5.0) mmol/L Chloride 96.4 L (98-107) mmol/L Carbon Dioxide 28 (22-30) mmol/L BUN 49 H (9-20) mg/dL Creatinine 9.5 H (0.8-1.5) mg/dL Glucose 81 (75-100) mg/dL Calcium 8.7 (8.4-10.2) mg/dL Total Bilirubin 0.4 (0.1-1.2) mg/dL AST 16 (5-40) units/L ALT 11 (7-56) units/L Alkaline Phosphatase 76 (35-129) units/L Total Protein 6.9 (6.3-8.2) g/dL Albumin 3.5 L (3.9-5) g/dL - Imaging CT scan - abdomen: image reviewed CT scan - pelvis: image reviewed Assessment and Plan - Patient Problems (1) Suprapubic abdominal pain Current Visit: Yes Status: Acute Plan to address problem: Patient's pain has resolved currently. I do not appreciate any peritonitis on examination. No acute pathology noted on CT scan. At this point he does not require any surgical intervention. I will sign off. Please re-consult as needed.
[2016-07-04] MEDS ORDERED: COUMADIN PO SCH (17:00)
[2016-07-04] MEDS ORDERED: LANOXIN PO SCH (17:00)
[2016-07-04] MEDS ORDERED: COUMADIN NO DOSE TODAY PO ONE (17:00)
[2016-07-05] MEDS: COREG PO SCH ×3 (00:11→22:37)
[2016-07-05] MEDS: APRESOLINE PO SCH ×3 (00:12→22:37)
[2016-07-05] MEDS: NEURONTIN PO SCH ×3 (00:12→22:36)
[2016-07-05 07:44] LABS: Basophils % (Auto) 0.7 % (0.0-1.8); Eosinophils % (Auto) 8.2 % (0.0-4.3); Hematocrit 41.7 % (35.5-45.6); Hemoglobin 12.9 gm/dl (11.8-15.2); Mean Corpuscular HGB Conc 31 % (32-34); Mean Corpuscular Hemoglobin 29 pg (28-32); Mean Corpuscular Volume 93 fl (84-94); Red Blood Count 4.49 M/mm3 (3.65-5.03); White Blood Count 7.6 K/mm3 (4.5-11.0)
[2016-07-05 07:45] LABS: Platelet Count 76 K/mm3 (140-440); Red Cell Distribution Width 20.6 % (13.2-15.2)
[2016-07-05 07:53] LABS: INR 3.83 (0.87-1.13)
[2016-07-05 07:58] LABS: BUN/Creatinine Ratio 3.73; Calcium 9.2 mg/dL (8.4-10.2); Chloride 92.3 mmol/L (98-107)
[2016-07-05] MEDS: RENVELA PO SCH ×3 (08:00→17:34)
[2016-07-05] MEDS: PULMICORT IH SCH ×2 (08:07→20:50)
[2016-07-05] MEDS: BROVANA NEBU IH SCH ×2 (08:14→20:50)
[2016-07-05] MEDS: SPIRIVA IH SCH (08:49)
--- NOTE | 2016-07-05 12:04 | Consultation ---
History of Present Illness Consult date: 07/05/16 Consult reason: atrial fibrillation History of present illness: 71-year-old male patient presenting with abdominal pain denies any cardiac symptoms at this time. Workup for abdominal pain and progress. 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 denies: alcohol abuse, prescription drug abuse, IV drug use Family history: diabetes, hypertension Medications and Allergies Allergies Allergy/AdvReac Type Severity Reaction Status Date / Time No Known Allergies Allergy Verified 07/10/14 14:19 Home Medications Medication Instructions Recorded Confirmed Last Taken Type Furosemide 80 mg PO DAILY 04/29/13 07/03/16 08/22/15 History Gabapentin [Neurontin] 300 mg PO BID 04/29/13 07/03/16 08/22/15 History Amlodipine Besylate/Benazepril 1 cap PO DAILY 06/15/14 07/03/16 08/22/15 History [amLODIPine-Benazepril 10/40 mg] Carvedilol [Coreg] 25 mg PO BID 06/15/14 07/03/16 08/22/15 History Hydralazine HCl [hydrALAZINE] 100 mg PO BID 06/15/14 07/03/16 08/22/15 History Insulin NPH Hum/Reg Insulin Hm 10 unit SQ BID 06/15/14 07/03/16 08/22/15 History [HumuLIN 70-30 Vial] Cinacalcet [Sensipar] 30 mg PO QDAY 04/04/15 07/03/16 08/22/15 History Fluticasone [Flonase] 1 spray NS QDAY 04/04/15 07/03/16 08/22/15 History Tiotropium [Spiriva] 18 mcg IH QDAY 04/04/15 07/03/16 08/22/15 History Digoxin [Lanoxin] 0.125 mg PO DAILY 08/23/15 07/03/16 08/22/15 History Mometasone/Formoterol [Dulera 200 2 puff IH BID PRN 08/23/15 07/03/16 08/22/15 History Mcg/5 Mcg Inhaler] OLANzapine [ZyPREXA] 5 mg PO QHS 08/23/15 07/03/16 08/22/15 History Sevelamer Carbonate [Renvela] 2.4 gm PO TIDWM 08/23/15 07/03/16 08/22/15 History Warfarin [Coumadin] 5 mg PO DAILY@1700 #20 tablet 08/24/15 07/03/16 Unknown Rx Active Meds: Active Medications Acetaminophen (Tylenol) 650 mg PO Q4H PRN PRN Reason: Pain MILD(1-3)/Fever >100.5/DYE Amlodipine Besylate (Norvasc) 10 mg PO DAILY [facility] Last Admin: 07/04/16 11:39 Dose: Not Given Arformoterol Tartrate (Brovana Nebu) 15 mcg IH Q12HRT [facility] Last Admin: 07/05/16 08:14 Dose: 15 mcg Bisacodyl (Dulcolax) 10 mg ME QDAY PRN PRN Reason: Constipation unrelieved by MOM Budesonide (Pulmicort) 1 mg IH Q12HRT [facility] Last Admin: 07/05/16 08:07 Dose: 1 mg Carvedilol (Coreg) 25 mg PO BID [facility] Last Admin: 07/05/16 00:11 Dose: 25 mg Cinacalcet (Sensipar) 30 mg PO QDAY [facility] Last Admin: 07/04/16 12:28 Dose: 30 mg Digoxin (Lanoxin) 0.125 mg PO Q48H [facility] Last Admin: 07/05/16 00:10 Dose: 0.125 mg Epoetin [place] (Epogen) 20,000 unit IV CHAZ PRN PRN Reason: hemodialysis Last Admin: 07/04/16 19:52 Dose: 20,000 unit Fluticasone Propionate (Flonase) 100 mcg NS QDAY [facility] Last Admin: 07/04/16 12:27 Dose: 100 mcg Furosemide (Lasix) 80 mg PO DAILY [facility] Last Admin: 07/04/16 11:37 Dose: Not Given Gabapentin (Neurontin) 300 mg PO BID [facility] Last Admin: 07/05/16 00:12 Dose: 300 mg Heparin Sodium (Porcine) (Heparin 10,000 Units/10 Ml) 1,000 unit IV CHAZ PRN PRN Reason: hemodialysis Last Admin: 07/04/16 19:52 Dose: 1,000 unit Hydralazine HCl (Apresoline) 100 mg PO BID [facility] Last Admin: 07/05/16 00:12 Dose: 100 mg Sodium Chloride (Nacl 0.9% 1000 Ml) 100 mls @ 999 mls/hr IV CHAZ PRN PRN Reason: Hypotension Insulin Human Isoph/Insulin Regular (Novolin 70/30) 10 unit SUB-Q BIDDIAB [facility] Last Admin: 07/05/16 00:12 Dose: Not Given Lisinopril (Zestril) 40 mg PO QDAY [facility] Last Admin: 07/04/16 11:38 Dose: Not Given Magnesium Hydroxide (Milk Of Magnesia) 30 ml PO Q4H PRN PRN Reason: Constipation Olanzapine (Zyprexa) 5 mg PO QHS [facility] Last Admin: 07/05/16 00:10 Dose: 5 mg Ondansetron HCl (Zofran) 4 mg IV Q8H PRN PRN Reason: N/V unrelieved by Tod Sevelamer Carbonate (Renvela) 2,400 mg PO AC [facility] Last Admin: 07/04/16 18:13 Dose: 2,400 mg Tiotropium [place] (Spiriva) 1 puff IH Q24HR [facility] Last Admin: 07/04/16 10:20 Dose: Not Given Warfarin Sodium (Coumadin Pharmacy To Dose) 1 each PO PKCONSULT [facility] Warfarin Sodium (Coumadin No Dose Today) 1 each PO 1700 ONE Stop: 07/05/16 17:01 Review of Systems Cardiovascular: no chest pain, no orthopnea, no rapid/irregular heart beat, no shortness of breath, no leg edema Respiratory: no cough, no excessive sputum, no wheezing, no pleurisy Gastrointestinal: abdominal pain, nausea Genitourinary Male: no dysuria, no hematuria, no flank pain, no discharge Rectal: no pain Musculoskeletal: no neck stiffness, no neck pain, no redness of joints, no morning stiffness Integumentary: no deferred, no pruritis Neurological: no head injury, no paralysis, no weakness, no headaches Psychiatric: no anxiety, no memory loss, no sleep disturbances Endocrine: no cold intolerance, no heat intolerance, no polyphagia Allergic/Immunologic: no urticaria, no allergic rhinitis, no persistent infections, no anaphylaxis Physical Examination Vital Signs Temp Pulse BP Pulse Ox 97.6 F 60 154/51 100 07/03/16 11:20 07/03/16 11:20 07/03/16 11:20 07/03/16 11:20 General appearance: no acute distress, mild distress HEENT: Positive: PERRL, Sinus Tenderness, Mucus Membranes Moist Neck: Positive: neck supple, trachea midline. Negative: JVD/HJR Cardiac: Positive: Regular Rate, S1/S2, PMI, Laterally Displaced Lungs: Positive: clear to auscultation, No Wheeze, Rales, Rhonchi Neuro: Positive: Grossly Intact, Motor Function Intact, No Lateralizing Findings Abdomen: Positive: Unremarkable, Soft Male genitourinary: Positive: normal Skin: Positive: Clear Extremities: Absent: edema Results 07/05/16 07:05 07/05/16 07:05 Coagulation 07/05/16 Range/Units 07:05 PT 38.0 H (12.2-14.9) Sec. INR 3.83 H (0.87-1.13) CBC 07/05/16 Range/Units 07:05 WBC 7.6 (4.5-11.0) K/mm3 RBC 4.49 (3.65-5.03) M/mm3 Hgb 12.9 (11.8-15.2) gm/dl Hct 41.7 D (35.5-45.6) % Plt Count 76 L (140-440) K/mm3 Lymph # 0.9 L (1.2-5.4) K/mm3 [place] # 0.7 (0.0-0.8) K/mm3 Eos # 0.6 H (0.0-0.4) K/mm3 Baso # 0.1 (0.0-0.1) K/mm3 Comprehensive Metabolic Panel 07/05/16 Range/Units 07:05 Sodium 138 (137-145) mmol/L Potassium 5.0 (3.6-5.0) mmol/L Chloride 92.3 L (98-107) mmol/L Carbon Dioxide 28 (22-30) mmol/L BUN 28 H (9-20) mg/dL Creatinine 7.5 H (0.8-1.5) mg/dL Glucose 159 H (75-100) mg/dL Calcium 9.2 (8.4-10.2) mg/dL Assessment and Plan 1. Abdominal pain work up as per surgeons. 2. History of chronic atrial fibrillation. 3. Supra therapeutic INR 4. Coronary artery disease stable 5. End-stage renal disease 6. History of CVA 7. Essential hypertension 8. Type 2 diabetes mellitus Plan. Hold warfarin check echocardiogram adjusts dose of Coumadin with INR is within therapeutic range.
--- NOTE | 2016-07-05 13:53 | Progress Note ---
Assessment and Plan - Patient Problems (1) Suprapubic abdominal pain Current Visit: Yes Status: Acute Plan to address problem: CT scan showed gallstones and was extensive vascular calcifications, a hernia and bilateral renal cysts but no cause for an acute abdomen. No acute surgical indication as per surg consult. pain resolved (2) End stage renal disease on dialysis Current Visit: Yes Status: Chronic Plan to address problem: continue HD M/W/F (3) Diabetes mellitus Current Visit: No Status: Acute Qualifiers: Diabetes mellitus type: type 1 Diabetes mellitus complication status: with skin complications Diabetes mellitus complication detail: with other skin complication Qualified Code(s): E10.628 - Type 1 diabetes mellitus with other skin complications Plan to address problem: glucose control as per primary attending (4) Anemia due to chronic kidney disease Current Visit: No Status: Chronic Plan to address problem: epo with HD (5) Hypertensive chronic kidney disease with stage 5 chronic kidney disease or end stage renal disease Current Visit: Yes Status: Acute Plan to address problem: monitor BP on current meds Subjective Date of service: 07/05/16 Interval history: patient awake, alert, resolved abdominal pain Objective - Vital Signs Vital signs: Vital Signs - 12hr 07/05/16 07/05/16 07/05/16 08:15 08:30 08:45 Temperature 98.9 F Pulse Rate [ 73 73 Bilateral Throughout] Pulse Rate [ 70 Right Radial] Respiratory 18 Rate Respiratory 16 16 Rate [Bilateral Throughout] Blood Pressure 117/53 [Right Arm] O2 Sat by Pulse 98 Oximetry - General Appearance General appearance: well-developed, appears stated age, chronically ill EENT: ATNC, PERRL, mucous membranes moist Neck: no JVD Respiratory: Present: Clear to Ascultation Cardiology: regular, S1S2 Gastrointestinal: normal, normoactive bowel sounds Integumentary: no rash, other (R BKA) Neurologic: no focal deficit, alert and oriented x3, reflexes 2+ and symmetric, CN 3-12 intact Psychiatric: mood/affect appropriate, cooperative - Lab 07/05/16 07:05 07/05/16 07:05 Most recent lab results Calcium 9.2 mg/dL (8.4-10.2) 07/05/16 07:05
[2016-07-05] MEDS: LASIX PO SCH (14:50)
[2016-07-05] MEDS: FLONASE NS SCH (14:50)
[2016-07-05] MEDS: NORVASC PO SCH (14:50)
[2016-07-05] MEDS: ZESTRIL PO SCH (14:51)
[2016-07-05] MEDS: SENSIPAR PO SCH (14:51)
--- NOTE | 2016-07-05 15:52 | Progress Note ---
Assessment and Plan Assessment and plan: Lower abdominal pain - Patient's pain is subsided with pain medication - Surgery consult is placed End-stage renal disease on hemodialysis - Nephrology consulted IDDM - Patient is on insulin regimen Chronic systolic CHF - Stable - Continue home medications A. fib - On warfarin - INR is supratherapeutic - We will hold the next dose - Thrombocytopenia Hypertension - Uncontrolled - Continue all medications - May normalized after hemodialysis DVT prophylaxis - INR is supratherapeutic Disposition - Continue inpatient care History Interval history: No new complaints, no nursing issues overnight. No abdominal pain. Hospitalist Physical - Physical exam Narrative exam: Not in cardiopulmonary distress. The patient appeared well nourished and normally developed. Vital signs as documented. Head exam is unremarkable. No scleral icterus . Neck is without jugular venous distension, thyromegaly, or carotid bruits. Lungs are clear to auscultation. Cardiac exam reveals regular rate and Rhythm. First and second heart sounds normal. No murmurs, rubs or gallops. Abdominal exam reveals normal bowel sounds, no masses, no organomegaly and no aortic enlargement. WINE CONSULTANT: Alert and oriented 3. No focal weakness. - Constitutional Vitals: Temp Pulse Resp BP Pulse Ox 98.9 F 70 18 117/53 98 07/05/16 08:45 07/05/16 08:45 07/05/16 08:45 07/05/16 08:45 07/05/16 08:45 General appearance: Present: no acute distress, mild distress Results - Labs CBC & Chem 7: 07/05/16 07:05 07/05/16 07:05 Labs: Laboratory Last Values WBC 7.6 K/mm3 (4.5-11.0) 07/05/16 07:05 RBC 4.49 M/mm3 (3.65-5.03) 07/05/16 07:05 Hgb 12.9 gm/dl (11.8-15.2) 07/05/16 07:05 Hct 41.7 % (35.5-45.6) D 07/05/16 07:05 MCV 93 fl (84-94) 07/05/16 07:05 MCH 29 pg (28-32) 07/05/16 07:05 MCHC 31 % (32-34) L 07/05/16 07:05 RDW 20.6 % (13.2-15.2) H 07/05/16 07:05 Plt Count 76 K/mm3 (140-440) L 07/05/16 07:05 Lymph % (Auto) 11.4 % (13.4-35.0) L 07/05/16 07:05 [place] % (Auto) 8.8 % (0.0-7.3) H 07/05/16 07:05 Eos % (Auto) 8.2 % (0.0-4.3) H 07/05/16 07:05 Baso % (Auto) 0.7 % (0.0-1.8) 07/05/16 07:05 Lymph # 0.9 K/mm3 (1.2-5.4) L 07/05/16 07:05 [place] # 0.7 K/mm3 (0.0-0.8) 07/05/16 07:05 Eos # 0.6 K/mm3 (0.0-0.4) H 07/05/16 07:05 Baso # 0.1 K/mm3 (0.0-0.1) 07/05/16 07:05 Seg Neutrophils % 70.9 % (40.0-70.0) H 07/05/16 07:05 Seg Neutrophils # 5.4 K/mm3 (1.8-7.7) 07/05/16 07:05 PT 38.0 Sec. (12.2-14.9) H 07/05/16 07:05 INR 3.83 (0.87-1.13) H 07/05/16 07:05 Sodium 138 mmol/L (137-145) 07/05/16 07:05 Potassium 5.0 mmol/L (3.6-5.0) 07/05/16 07:05 Chloride 92.3 mmol/L (98-107) L 07/05/16 07:05 Carbon Dioxide 28 mmol/L (22-30) 07/05/16 07:05 Anion Gap 23 mmol/L 07/05/16 07:05 BUN 28 mg/dL (9-20) H 07/05/16 07:05 Creatinine 7.5 mg/dL (0.8-1.5) H 07/05/16 07:05 Estimated GFR 9 ml/min 07/05/16 07:05 BUN/Creatinine Ratio 3.73 % 07/05/16 07:05 Glucose 159 mg/dL (75-100) H 07/05/16 07:05 POC Glucose 153 (70-105) H 07/05/16 12:01 Hemoglobin A1c 7.8 % (4-6) H 07/04/16 06:11 Lactic Acid 1.2 mmol/L (0.7-2.0) 07/03/16 14:26 Calcium 9.2 mg/dL (8.4-10.2) 07/05/16 07:05 Total Bilirubin 0.4 mg/dL (0.1-1.2) 07/04/16 06:11 Direct Bilirubin < 0.2 mg/dL (0-0.2) 07/03/16 14:26 AST 16 units/L (5-40) 07/04/16 06:11 ALT 11 units/L (7-56) 07/04/16 06:11 Alkaline Phosphatase 76 units/L (35-129) 07/04/16 06:11 Total Protein 6.9 g/dL (6.3-8.2) 07/04/16 06:11 Albumin 3.5 g/dL (3.9-5) L 07/04/16 06:11 Albumin/Globulin Ratio 1.0 % 07/04/16 06:11
[2016-07-05] MEDS: COUMADIN NO DOSE TODAY PO ONE ×2 (17:35→17:39)
[2016-07-06 06:45] LABS: BUN/Creatinine Ratio 4.04; Calcium 9.5 mg/dL (8.4-10.2); Chloride 93.2 mmol/L (98-107); Potassium 5.1 mmol/L (3.6-5.0)
[2016-07-06 06:47] LABS: INR 3.56 (0.87-1.13)
[2016-07-06 06:56] LABS: Basophils % (Auto) 0.7 % (0.0-1.8); Eosinophils % (Auto) 5.1 % (0.0-4.3); Hematocrit 36.3 % (35.5-45.6); Hemoglobin 11.5 gm/dl (11.8-15.2); Mean Corpuscular HGB Conc 32 % (32-34); Mean Corpuscular Hemoglobin 29 pg (28-32); Mean Corpuscular Volume 91 fl (84-94); Red Blood Count 3.97 M/mm3 (3.65-5.03); White Blood Count 8.2 K/mm3 (4.5-11.0)
[2016-07-06 07:00] LABS: Platelet Count 92 K/mm3 (140-440); Red Cell Distribution Width 20.3 % (13.2-15.2)
--- NOTE | 2016-07-06 08:05 | Progress Note ---
Assessment and Plan - Patient Problems (1) Suprapubic abdominal pain Current Visit: Yes Status: Acute Plan to address problem: No acute surgical indication as per surg consult.pain resolved (2) End stage renal disease on dialysis Current Visit: Yes Status: Chronic Plan to address problem: continue HD M/W/F while inpatient. (3) Diabetes mellitus Current Visit: No Status: Acute Qualifiers: Diabetes mellitus type: type 1 Diabetes mellitus complication status: with skin complications Diabetes mellitus complication detail: with other skin complication Qualified Code(s): E10.628 - Type 1 diabetes mellitus with other skin complications Plan to address problem: glucose control as per primary attending (4) Anemia due to chronic kidney disease Current Visit: No Status: Chronic Plan to address problem: epo with HD (5) Hypertensive chronic kidney disease with stage 5 chronic kidney disease or end stage renal disease Current Visit: Yes Status: Acute Plan to address problem: monitor BP on current meds Subjective Date of service: 07/06/16 Interval history: patient awake, alert, in NAD, no events overnight Objective - Vital Signs Vital signs: Vital Signs - 12hr 07/05/16 07/05/16 07/05/16 20:35 20:55 22:37 Temperature 99.0 F Pulse Rate [ 65 Apical] Respiratory 20 20 Rate Blood Pressure 116/56 Blood Pressure 135/64 [Right Arm] O2 Sat by Pulse 98 Oximetry 07/05/16 07/06/16 23:49 05:00 Temperature 98.1 F 98.0 F Pulse Rate [ 67 61 Apical] Respiratory 18 18 Rate Blood Pressure Blood Pressure 120/58 138/58 [Right Arm] O2 Sat by Pulse 98 100 Oximetry - General Appearance General appearance: well-developed, well-nourished, chronically ill EENT: ATNC, PERRL, mucous membranes moist Neck: no JVD Respiratory: Present: Clear to Ascultation Cardiology: regular, S1S2 Gastrointestinal: normal Integumentary: no rash, other (R BKA) Neurologic: no focal deficit, alert and oriented x3, strength 5/5, CN 3-12 intact Psychiatric: mood/affect appropriate - Lab 07/06/16 05:46 07/06/16 05:46 Most recent lab results Calcium 9.5 mg/dL (8.4-10.2) 07/06/16 05:46
[2016-07-06] MEDS: PULMICORT IH SCH (08:15)
[2016-07-06] MEDS: BROVANA NEBU IH SCH (08:15)
--- NOTE | 2016-07-06 08:47 | Progress Note ---
Assessment and Plan Assessment and plan: Lower abdominal pain - Patient's pain is subsided - Surgery consult appreciated and doesn't need any intervention from surgical side End-stage renal disease on hemodialysis - Nephrology consult appreciated IDDM - Patient is on insulin regimen - Well-controlled with - Patient had One reading of blood glucose level of 53 - We will monitor closely Chronic systolic CHF - Stable - Continue home medications A. fib - On warfarin - INR is supratherapeutic - We will hold the next dose - Chronic thrombocytopenia - Patient will have echo today Hypertension - Controlled - Continue current medications DVT prophylaxis - INR is supratherapeutic - Coumadin was held Disposition - Continue inpatient care History Interval history: No abdominal pain. No bleeding. Hospitalist Physical - Physical exam Narrative exam: Not in cardiopulmonary distress. The patient appeared well nourished and normally developed. Vital signs as documented. Head exam is unremarkable. No scleral icterus . Neck is without jugular venous distension, thyromegaly, or carotid bruits. Lungs are clear to auscultation. Cardiac exam reveals regular rate and Rhythm. First and second heart sounds normal. No murmurs, rubs or gallops. Abdominal exam reveals normal bowel sounds, no masses, no organomegaly and no aortic enlargement. Extremities bilateral BKA. 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 No focal weakness. - Constitutional Vitals: Temp Pulse Resp BP Pulse Ox 98.0 F 69 18 138/58 100 07/06/16 05:00 07/06/16 08:15 07/06/16 08:15 07/06/16 05:00 07/06/16 05:00 General appearance: Present: no acute distress, mild distress Results - Labs CBC & Chem 7: 07/06/16 05:46 07/06/16 05:46 Labs: Laboratory Last Values WBC 8.2 K/mm3 (4.5-11.0) 07/06/16 05:46 RBC 3.97 M/mm3 (3.65-5.03) 07/06/16 05:46 Hgb 11.5 gm/dl (11.8-15.2) L 07/06/16 05:46 Hct 36.3 % (35.5-45.6) 07/06/16 05:46 MCV 91 fl (84-94) 07/06/16 05:46 MCH 29 pg (28-32) 07/06/16 05:46 MCHC 32 % (32-34) 07/06/16 05:46 RDW 20.3 % (13.2-15.2) H 07/06/16 05:46 Plt Count 92 K/mm3 (140-440) L 07/06/16 05:46 Lymph % (Auto) 16.1 % (13.4-35.0) 07/06/16 05:46 [place] % (Auto) 13.0 % (0.0-7.3) H 07/06/16 05:46 Eos % (Auto) 5.1 % (0.0-4.3) H 07/06/16 05:46 Baso % (Auto) 0.7 % (0.0-1.8) 07/06/16 05:46 Lymph # 1.3 K/mm3 (1.2-5.4) 07/06/16 05:46 [place] # 1.1 K/mm3 (0.0-0.8) H 07/06/16 05:46 Eos # 0.4 K/mm3 (0.0-0.4) 07/06/16 05:46 Baso # 0.1 K/mm3 (0.0-0.1) 07/06/16 05:46 Seg Neutrophils % 65.1 % (40.0-70.0) 07/06/16 05:46 Seg Neutrophils # 5.3 K/mm3 (1.8-7.7) 07/06/16 05:46 PT 35.9 Sec. (12.2-14.9) H 07/06/16 05:46 INR 3.56 (0.87-1.13) H 07/06/16 05:46 Sodium 138 mmol/L (137-145) 07/06/16 05:46 Potassium 5.1 mmol/L (3.6-5.0) H 07/06/16 05:46 Chloride 93.2 mmol/L (98-107) L 07/06/16 05:46 Carbon Dioxide 28 mmol/L (22-30) 07/06/16 05:46 Anion Gap 22 mmol/L 07/06/16 05:46 BUN 38 mg/dL (9-20) H 07/06/16 05:46 Creatinine 9.4 mg/dL (0.8-1.5) H 07/06/16 05:46 Estimated GFR 7 ml/min 07/06/16 05:46 BUN/Creatinine Ratio 4.04 % 07/06/16 05:46 Glucose 97 mg/dL (75-100) 07/06/16 05:46 POC Glucose 95 (70-105) 07/06/16 06:25 Hemoglobin A1c 7.8 % (4-6) H 07/04/16 06:11 Lactic Acid 1.2 mmol/L (0.7-2.0) 07/03/16 14:26 Calcium 9.5 mg/dL (8.4-10.2) 07/06/16 05:46 Total Bilirubin 0.4 mg/dL (0.1-1.2) 07/04/16 06:11 Direct Bilirubin < 0.2 mg/dL (0-0.2) 07/03/16 14:26 AST 16 units/L (5-40) 07/04/16 06:11 ALT 11 units/L (7-56) 07/04/16 06:11 Alkaline Phosphatase 76 units/L (35-129) 07/04/16 06:11 Total Protein 6.9 g/dL (6.3-8.2) 07/04/16 06:11 Albumin 3.5 g/dL (3.9-5) L 07/04/16 06:11 Albumin/Globulin Ratio 1.0 % 07/04/16 06:11 INR is still high
[2016-07-06] MEDS: RENVELA PO SCH (08:58)
[2016-07-06] MEDS: APRESOLINE PO SCH (09:06)
[2016-07-06] MEDS: COREG PO SCH (09:06)
[2016-07-06] MEDS: NORVASC PO SCH (09:07)
[2016-07-06] MEDS: LASIX PO SCH (09:07)
[2016-07-06] MEDS: NEURONTIN PO SCH (09:07)
[2016-07-06] MEDS: ZESTRIL PO SCH (09:07)
[2016-07-06] MEDS: SENSIPAR PO SCH (09:07)
--- NOTE | 2016-07-06 10:50 | Progress Note ---
Assessment and Plan 1. Acute abdominal pain resolved 2. Chronic atrial fibrillation with controlled ventricular response 3. History of coronary artery disease stable 4. Essential hypertension 5. Type 2 diabetes mellitus 6. Supra therapeutic INR 7. End-stage renal disease Plan. Cardiac-henson stable for lobe PT/INR. Discharge planning as per hospitalist Subjective Date of service: 07/06/16 Interval history: No Cardiac symptoms. Objective Vital Signs Temp Pulse Pulse Pulse Resp Resp BP 07/06/16 08:15 69 18 07/06/16 05:00 98.0 F 61 18 07/05/16 23:49 98.1 F 67 18 07/05/16 22:37 116/56 07/05/16 20:55 99.0 F 65 20 07/05/16 20:35 20 07/05/16 16:00 99 F 69 16 BP BP Pulse Ox 07/06/16 08:15 07/06/16 05:00 138/58 100 07/05/16 23:49 120/58 98 07/05/16 22:37 07/05/16 20:55 135/64 98 07/05/16 20:35 07/05/16 16:00 134/64 97 - Physical Examination General: Appears Well, No Apparent Distress HEENT: Positive: PERRL, Sinus Tenderness, Mucus Membranes Moist Neck: Positive: neck supple, trachea midline. Negative: JVD/HJR Cardiac: Positive: irregularly irregular, S1/S2, PMI, Dilated, Laterally Displaced Lungs: Positive: clear to auscultation, No Wheeze, Rales, Rhonchi Neuro: Positive: Grossly Intact, Motor Function Intact, No Lateralizing Findings Abdomen: Positive: Unremarkable, Soft Skin: Positive: Clear Extremities: Present: Other (Bilateral BKA). Absent: edema - Labs and Meds Coagulation 07/06/16 Range/Units 05:46 PT 35.9 H (12.2-14.9) Sec. INR 3.56 H (0.87-1.13) CBC 07/06/16 Range/Units 05:46 WBC 8.2 (4.5-11.0) K/mm3 RBC 3.97 (3.65-5.03) M/mm3 Hgb 11.5 L (11.8-15.2) gm/dl Hct 36.3 (35.5-45.6) % Plt Count 92 L (140-440) K/mm3 Lymph # 1.3 (1.2-5.4) K/mm3 [place] # 1.1 H (0.0-0.8) K/mm3 Eos # 0.4 (0.0-0.4) K/mm3 Baso # 0.1 (0.0-0.1) K/mm3 Comprehensive Metabolic Panel 07/06/16 Range/Units 05:46 Sodium 138 (137-145) mmol/L Potassium 5.1 H (3.6-5.0) mmol/L Chloride 93.2 L (98-107) mmol/L Carbon Dioxide 28 (22-30) mmol/L BUN 38 H (9-20) mg/dL Creatinine 9.4 H (0.8-1.5) mg/dL Glucose 97 (75-100) mg/dL Calcium 9.5 (8.4-10.2) mg/dL
--- NOTE | 2016-07-06 12:49 | Discharge Summary ---
Providers - Providers Date of Admission: 07/03/16 21:39 Date of discharge: 07/06/16 Attending physician: DAVID CARRILLO MD 07/03/16 22:06 Consult to Physician [CONS] Routine Consulting Provider: ALONA PINA Reason For Exam: Acute abdomen Place consult to:: surgery Notified:: office Phone number called:: [phone] Was contact made?: Yes If yes, spoke with:: Rosey Time called:: 12:18 07/05/16 08:15 Consult to Physician [CONS] Routine Consulting Provider: ANNABELLA GRIMM Reason For Exam: a.fib on anticoagulation, thrombocytopenia Place consult to:: cardiology Notified:: ANSWERING SERVICE Phone number called:: [phone] Was contact made?: Yes Time called:: 09:40 Comment:: RICHELLE - DAVID Primary care physician: METAL TECHNICIAN Hospitalization Reason for admission: abdominal pain Condition: Stable Hospital course: 71-year-old -[place] male with medical history significant for end- stage disease on hemodialysis Thursday, Thursday and Thursday admitted to the hospital because of complaints of abdominal pain while he was on hemodialysis. Patient was admitted and evaluated and his abdominal pain subsided. Patient has A. fib on anticoagulation and he is INR is elevated. Coumadin was held. Patient doesn't want to stay in the hospital. He stated she will go to his primary care physician tomorrow and we will check his INR and discussed about warfarin as his primary care physician. I advised him to take warfarin until his INR is within normal limit for discussed was a physician. Patient was stable by the time of discharge. He said he is going to continue his dialysis as scheduled. Disposition: DISCHARGED TO HOME OR SELFCARE Time spent for discharge: 31 minutes Core Measure Documentation - Palliative Care Palliative Care/ Comfort Measures: Not Applicable - Core Measures Any of the following diagnoses?: none Exam - Physical Exam Narrative exam: Not in cardiopulmonary distress. The patient appeared well nourished and normally developed. Vital signs as documented. Head exam is unremarkable. No scleral icterus . Neck is without jugular venous distension, thyromegaly, or carotid bruits. Lungs are clear to auscultation. Cardiac exam reveals regular rate and Rhythm. First and second heart sounds normal. No murmurs, rubs or gallops. Abdominal exam reveals normal bowel sounds, no masses, no organomegaly and no aortic enlargement. Extremities bilateral BKA. 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 No focal weakness. - Constitutional Vitals: Temp Pulse Resp BP Pulse Ox 98.0 F 69 18 138/58 100 07/06/16 05:00 07/06/16 08:15 07/06/16 08:15 07/06/16 05:00 07/06/16 05:00 Plan Activity: other (bilateral BKA) Weight Bearing Status: Non-Weight Bearing (bilateral BKA) Diet: low cholesterol, low salt, diabetic, renal Follow up with: PRIMARY CARE, [Primary Care Provider] - 48 Hours (Patient stated he will go to his primary care physician tomorrow for checking his INR and starting his warfarin.) Forms: Warfarin Discharge Instruction
[2016-07-06 14:23] VITALS: BP 123/60
[2016-07-06] MEDS: SPIRIVA IH SCH (14:29)
[2016-07-06] MEDS ORDERED: COUMADIN NO DOSE TODAY PO ONE (17:00)
--- NOTE | 2016-07-10 09:48 | Query- Abdominal Pain ---
Dear Date:_07/10/16 Property Insurance Agent/CDS:Debora Muhammad Phone#:_[phone] Exercise your independent professional judgment when responding to this query. Questions asked do not imply that a particular answer is desired or expected. We greatly appreciate your clarification on this issue. Clinical Documentation States: 71 Y/O Male admitted on 07/03/16 with Hx. of Bilateral BKA, HTN, ESRD, DM, COPD , A-Fib presents for acute abdominal pain. The patient was undergoing dialysis and developed sharp suprapubic pain, and was unable to tolerate dialysis. Clinical Findings Show: CT Abdomen: Cholelithiasis and extensive atherosclerotic vascular calcifications Please specify the etiology of Abdominal Pain: [ ]Appendicitis, Acute [ ] Intestinal Obstruction [ ]Diverticulitis, Acute [ ] Uremia [ ]Pancreatitis, Acute [ ] Thoracic Aortic Aneurysm [ ]Peritonitis [ ] Urinary Tract Infection [ ]Ulcerative Colitis [ ] Pelvic Inflammatory Disease [ ]Cholecystitis [ ] Cystitis [ ]Cholangitis [ ] Pyelonephritis [ ]Viral Gastroenteritis [ ] Renal Stones [ ]Gastroenteritis, Bacterial [ ] Retroperitoneal Infection [ ]Gastritis [ ] Shingles [ ]Peritoneal Irritation [ ] Mesenteric Artery Occlusion [ ]Peritoneal Inflammation [ ] Trauma(please specify): _ [ ]Peritoneal Infection [ ] Irritable Bowel Syndrome [ ]Constipation [ ] Hernia [ ]GERD [ ] Cholelithiasis [ ]Peptic Ulcer [ ] Vascular Insufficiency of Intestine [ ]Diabetic Ketoacidosis [ ]Cancer [ ]Other: [ x]Unable to determine [ ]Comment/Explanation: Present on Admission: [ x] Yes (Y) [ ] Clinically undeterminable (W) [ ] No(N) Please also document response in your Progress Notes and/or Discharge Summary and indicate if the condition was present on admission. TRINITYD
== END 2016-07-06 15:30 | disposition home or self-care (01) | DRG 291 ==
LOC: ED 11:03 → 3A 21:39
PROVIDERS: ADMIT Internal Medicine; ATTEND Internal Medicine
PROC: 5A1D60Z (ICD-10-PCS; principal; 2016-07-03)
DX: I13.2 Hypertensive heart and chronic kidney disease with heart failure and with stage 5 chronic kidney disease, or end stage renal disease (principal); N18.6 End stage renal disease; I50.22 Chronic systolic (congestive) heart failure; I48.91 Unspecified atrial fibrillation; K21.9 Gastro-esophageal reflux disease without esophagitis; M19.90 Unspecified osteoarthritis, unspecified site; J45.909 Unspecified asthma, uncomplicated; J44.9 Chronic obstructive pulmonary disease, unspecified; F32.9 Major depressive disorder, single episode, unspecified; I25.10 Atherosclerotic heart disease of native coronary artery without angina pectoris; E78.5 Hyperlipidemia, unspecified; E10.628 Type 1 diabetes mellitus with other skin complications; D63.1 Anemia in chronic kidney disease; D69.6 Thrombocytopenia, unspecified; K80.80 Other cholelithiasis without obstruction; N28.1 Cyst of kidney, acquired; E10.22 Type 1 diabetes mellitus with diabetic chronic kidney disease; E10.51 Type 1 diabetes mellitus with diabetic peripheral angiopathy without gangrene; E10.65 Type 1 diabetes mellitus with hyperglycemia; Z79.01 Long term (current) use of anticoagulants; Z86.73 Personal history of transient ischemic attack (TIA), and cerebral infarction without residual deficits; I25.2 Old myocardial infarction; Z82.49 Family history of ischemic heart disease and other diseases of the circulatory system; Z99.2 Dependence on renal dialysis; Z89.512 Acquired absence of left leg below knee; Z89.511 Acquired absence of right leg below knee; Z87.891 Personal history of nicotine dependence; Z83.3 Family history of diabetes mellitus; Z79.899 Other long term (current) drug therapy; R10.9 Unspecified abdominal pain
CPT/HCPCS: 36415; 74176; 80048; 80053; 80074; 82140; 82962; 83036; 85025; 85610; 94640; 96372; 96374; 96375; J0885; J1644; J1815; J2270; J2405

== ENCOUNTER 2016-08-21 12:46 | Emergency (ER) | payer MEDICARE ==
[2016-08-21 13:22] LABS: Basophils % (Auto) 0.7 % (0.0-1.8); Eosinophils % (Auto) 5.2 % (0.0-4.3); Hematocrit 34.8 % (35.5-45.6); Hemoglobin 10.8 gm/dl (11.8-15.2); Mean Corpuscular HGB Conc 31 % (32-34); Mean Corpuscular Hemoglobin 29 pg (28-32); Mean Corpuscular Volume 92 fl (84-94); Red Blood Count 3.78 M/mm3 (3.65-5.03); Red Cell Distribution Width 18.9 % (13.2-15.2); White Blood Count 7.8 K/mm3 (4.5-11.0)
[2016-08-21 13:23] LABS: Platelet Count 84 K/mm3 (140-440)
[2016-08-21 13:32] LABS: INR 1.15 (0.87-1.13)
[2016-08-21 13:34] LABS: Partial Thromboplastin Time 48.5 Sec. (24.2-36.6)
[2016-08-21 13:41] LABS: BUN/Creatinine Ratio 3.02; Calcium 9.4 mg/dL (8.4-10.2); Chloride 94.5 mmol/L (98-107)
--- NOTE | 2016-08-21 13:46 | Admit Criteria Form ---
Admission Criteria Documentation: RENAL FAILURE, CHRONIC Clinical Indications for Admission to Inpatient Care (Place 'X' for any and all applicable criteria): Admission is indicated for ANY ONE of the following (1)(2)(3)(4)(5): [X ]I. Inpatient admission required rather than observation care (Use Renal Failure, Chronic: Observation Care Criteria as appropriate) because of ANY ONE of the following: [ ]a) Volume overload or uremic symptoms (eg, clinically significant pulmonary edema, hypertension, pericarditis, acidosis) too severe for, or not responsive (eg, for over 24 hours) to emergency department or observation care dialysis or treatment regimen (11) [ ]b) Hemodynamic instability that is severe or persistent [ ]c) Respiratory distress that is severe or persistent (11) [ ]d) Clinically significant electrolyte abnormality that requires inpatient care (eg,hyperkalemia with severe ECG findings)[B] [ ]e) Supplement O2 or respiratory therapy for over 24hrs that is performable only in acute inpatient setting [ ]f) Continuous IV infusion of anticoagulation, platelet inhibitor, vasoactive, or Antiarrhythmic medication (15), [ ]g) Pulmonary artery catheter monitoring [ ]h) Temporary pacemaker placement [ ]i) Emergent pericardiocentesis [X ]j) Other condition, treatment or monitoring requiring inpatient admission [ ]II. Unexplained syncope [A] [ ]III. Recurrent seizures [ ]IV. Severe infections not treatable in outpatient setting (eg, peritonitis)(9 ) [ ]V. Cardiac arrhythmias of immediate concern [ ]. Encephalopathy [ ]VII.Bleeding abnormalities (eg, platelet dysfunction) with active (eg, gastrointestinal) bleeding Extended stay beyond goal length of stay may be needed for (3)(4)(35)(36): [ ]a) Continuing uremic complications [ ]b) Comorbidities or complications The original [employer] content created by [employer] has been revised. The portions of the content which have been revised are identified through the use of italic text or in bold, and mobile [facility] has neither reviewed nor approved the modified material. All other unmodified content is copyright [employer]. Please see references footnoted in the original [employer] edition 2016
--- NOTE | 2016-08-21 13:47 | XRay Report ---
Single view chest: Compared to 08/23/15. History: Hypertension. Findings: Cardiomegaly. Trachea is midline. A stable pacemaker. No consolidation, pneumothorax or pleural effusion. Impression: No acute cardiopulmonary findings.
--- NOTE | 2016-08-21 14:55 | Emergency Department Report ---
ED General Adult HPI - General Chief complaint: Extremity Injury, Upper Stated complaint: LEFT ARM PAIN Time Seen by Provider: 08/21/16 13:19 Source: patient, EMS, RN notes reviewed Mode of arrival: Stretcher Limitations: Physical Limitation - History of Present Illness Initial comments: The patient was sent from dialysis for evaluation of left arm pain. The patient rates his arm feels better now. According to his family periodically has neuropathy pain. He is also had pain in the arm which has been previously attributed to his AICD. He denied any other symptoms such as nausea vomiting diaphoresis chest pain tightness or any difficulty in breathing. He's had no recent fever or chills. He is essentially asymptomatic at this time. The patient has a history of a non-ischemic cardiomyopathy. Negative cath in 2004. He's been followed by [facility]. He had a negative stress test ( nuclear perfusion study read by Dr. Robins in 2014. He has a history of type 2 diabetes and lateral amputation lower extremities. -: Gradual Location: left, upper extremity Radiation: non-radiation Severity scale (0 -10): 5 Quality: aching Consistency: now resolved Improves with: none Worsens with: none Associated Symptoms: denies other symptoms Treatments Prior to Arrival: none - Related Data Home Medications Medication Instructions Recorded Confirmed Last Taken Furosemide 80 mg PO DAILY 04/29/13 07/03/16 08/22/15 Gabapentin [Neurontin] 300 mg PO BID 04/29/13 07/03/16 08/22/15 Amlodipine Besylate/Benazepril 1 cap PO DAILY 06/15/14 07/03/16 08/22/15 [amLODIPine-Benazepril 10/40 mg] Carvedilol [Coreg] 25 mg PO BID 06/15/14 07/03/16 08/22/15 Hydralazine HCl [hydrALAZINE] 100 mg PO BID 06/15/14 07/03/16 08/22/15 Insulin NPH Hum/Reg Insulin Hm 10 unit SQ BID 06/15/14 07/03/16 08/22/15 [HumuLIN 70-30 Vial] Cinacalcet [Sensipar] 30 mg PO QDAY 04/04/15 07/03/16 08/22/15 Fluticasone [Flonase] 1 spray NS QDAY 04/04/15 07/03/16 08/22/15 Tiotropium [Spiriva] 18 mcg IH QDAY 04/04/15 07/03/16 08/22/15 Digoxin [Lanoxin] 0.125 mg PO DAILY 08/23/15 07/03/16 08/22/15 Mometasone/Formoterol [Dulera 200 2 puff IH BID PRN 08/23/15 07/03/16 08/22/15 Mcg/5 Mcg Inhaler] OLANzapine [ZyPREXA] 5 mg PO QHS 08/23/15 07/03/16 08/22/15 Sevelamer Carbonate [Renvela] 2.4 gm PO TIDWM 08/23/15 07/03/16 08/22/15 Previous Rx's Medication Instructions Recorded Last Taken Type traMADol [Ultram] 50 mg PO Q6HR PRN #10 tablet 08/21/16 Unknown Rx Allergies Allergy/AdvReac Type Severity Reaction Status Date / Time No Known Allergies Allergy Verified 07/10/14 14:19 ED Review of Systems ROS: Stated complaint: LEFT ARM PAIN Other details as noted in HPI Comment: Unobtainable due to pts medical conditions ED Past Medical Hx - Past Medical History Previous Medical History?: Yes Hx Hypertension: Yes 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, expressive dysphasia) Hx Heart Attack/AMI: Yes Hx Congestive Heart Failure: Yes Hx Diabetes: Yes Hx GERD: Yes (hospitalized for reflux 07/08/14) Hx Renal Disease: Yes Hx Arthritis: Yes Hx Asthma: Yes Hx COPD: Yes Hx HIV: No Additional medical history: Tricuspid and mitral regurgitation - Surgical History Past Surgical History?: Yes Hx Open Heart Surgery: No Hx Internal Defibrillator: Yes (2004, 2013) Additional Surgical History: bilateral BKA - Social History Smoking Status: Unknown if ever smoked Substance Use Type: None - Medications Home Medications: Home Medications Medication Instructions Recorded Confirmed Last Taken Type Furosemide 80 mg PO DAILY 04/29/13 07/03/16 08/22/15 History Gabapentin [Neurontin] 300 mg PO BID 04/29/13 07/03/16 08/22/15 History Amlodipine Besylate/Benazepril 1 cap PO DAILY 06/15/14 07/03/16 08/22/15 History [amLODIPine-Benazepril 10/40 mg] Carvedilol [Coreg] 25 mg PO BID 06/15/14 07/03/16 08/22/15 History Hydralazine HCl [hydrALAZINE] 100 mg PO BID 06/15/14 07/03/16 08/22/15 History Insulin NPH Hum/Reg Insulin Hm 10 unit SQ BID 06/15/14 07/03/16 08/22/15 History [HumuLIN 70-30 Vial] Cinacalcet [Sensipar] 30 mg PO QDAY 04/04/15 07/03/16 08/22/15 History Fluticasone [Flonase] 1 spray NS QDAY 04/04/15 07/03/16 08/22/15 History Tiotropium [Spiriva] 18 mcg IH QDAY 04/04/15 07/03/16 08/22/15 History Digoxin [Lanoxin] 0.125 mg PO DAILY 08/23/15 07/03/16 08/22/15 History Mometasone/Formoterol [Dulera 200 2 puff IH BID PRN 08/23/15 07/03/16 08/22/15 History Mcg/5 Mcg Inhaler] OLANzapine [ZyPREXA] 5 mg PO QHS 08/23/15 07/03/16 08/22/15 History Sevelamer Carbonate [Renvela] 2.4 gm PO TIDWM 08/23/15 07/03/16 08/22/15 History traMADol [Ultram] 50 mg PO Q6HR PRN #10 tablet 08/21/16 Unknown Rx ED Physical Exam - General Limitations: Physical Limitation General appearance: alert, in no apparent distress - Head Head exam: Present: atraumatic, normocephalic - Eye Eye exam: Present: normal appearance. Absent: scleral icterus - ENT ENT exam: Present: mucous membranes moist - Neck Neck exam: Present: normal inspection - Respiratory Respiratory exam: Present: normal lung sounds bilaterally. Absent: respiratory distress - Cardiovascular Cardiovascular Exam: Present: regular rate, normal rhythm. Absent: systolic murmur, diastolic murmur, rubs, gallop - GI/Abdominal GI/Abdominal exam: Present: soft, normal bowel sounds. Absent: distended, tenderness, guarding, rebound, rigid - Rectal Rectal exam: Present: deferred - Extremities Exam Extremities exam: Present: other (does appear to have some limited mobility of his left upper extremity. It is not grossly contracted. There is no apparent motor deficit. Pulses present and strong. Neurovascular exam is intact. There is no tenderness and no swelling.). Absent: normal inspection (bilateral [id number] amputation) - Back Exam Back exam: Present: normal inspection - Neurological Exam Neurological exam: Present: alert, oriented X3, other (acute focal deficit) - Psychiatric Psychiatric exam: Present: normal affect, normal mood - Skin Skin exam: Present: warm, dry, intact, normal color. Absent: rash ED Course Vital Signs 08/21/16 08/21/16 08/21/16 12:55 13:02 13:09 Temperature 98.1 F 98.7 F Pulse Rate 74 66 68 Respiratory 20 20 14 Rate Blood Pressure 150/80 Blood Pressure 150/88 [Right] O2 Sat by Pulse 100 99 Oximetry 08/21/16 08/21/16 08/21/16 13:10 13:20 13:30 Temperature Pulse Rate 69 65 63 Respiratory 11 L 18 14 Rate Blood Pressure 140/54 152/61 150/57 Blood Pressure [Right] O2 Sat by Pulse 99 98 99 Oximetry 08/21/16 08/21/16 08/21/16 13:40 13:50 14:00 Temperature Pulse Rate 64 69 63 Respiratory 12 18 18 Rate Blood Pressure 150/57 157/53 148/48 Blood Pressure [Right] O2 Sat by Pulse 99 100 98 Oximetry 08/21/16 08/21/16 14:10 14:20 Temperature Pulse Rate 65 66 Respiratory 14 18 Rate Blood Pressure 148/48 109/58 Blood Pressure [Right] O2 Sat by Pulse 100 100 Oximetry - Reevaluation(s) Reevaluation #1: Was palpable in the emergency department. He showed no submental symptoms. His work up was essentially negative. He is noted to have a slightly elevated troponin. This is a chronic finding for this patient and clinically nonsignificant in my opinion. 08/21/16 14:55 ED Medical Decision Making - Lab Data Result diagrams: 08/21/16 13:05 08/21/16 13:05 Laboratory Results - last 24 hr 08/21/16 08/21/16 08/21/16 13:05 13:05 13:05 WBC 7.8 RBC 3.78 Hgb 10.8 L Hct 34.8 L MCV 92 MCH 29 MCHC 31 L RDW 18.9 H Plt Count 84 L Lymph % (Auto) 14.9 [place] % (Auto) 9.2 H Eos % (Auto) 5.2 H Baso % (Auto) 0.7 Lymph # 1.2 [place] # 0.7 Eos # 0.4 Baso # 0.1 Seg Neutrophils % 70.0 Seg Neutrophils # 5.5 PT 14.6 INR 1.15 H APTT 48.5 H Sodium 140 Potassium 4.0 Chloride 94.5 L Carbon Dioxide 31 H Anion Gap 19 BUN 13 Creatinine 4.3 H Estimated GFR 17 BUN/Creatinine Ratio 3.02 Glucose 182 H Calcium 9.4 Troponin T 0.063 H Triglycerides 116 Cholesterol 90 LDL Cholesterol Direct 27 L HDL Cholesterol 40 Cholesterol/HDL Ratio 2.25 - EKG Data -: EKG Interpreted by Me EKG shows normal: sinus rhythm Rate: normal - EKG Data Interpretation: LVH (LVH with associated changes) - Radiology Data interpreted by me: Chest x-ray no acute process. Critical care attestation.: If time is entered above; I have spent that time in minutes in the direct care of this critically ill patient, excluding procedure time. ED Disposition Clinical Impression: Left arm pain, Diabetes 1.5, managed as type 2, End stage renal disease on dialysis Disposition: DISCHARGED TO HOME OR SELFCARE Is pt being admited?: No Does the pt Need Aspirin: No Condition: Stable Instructions: Diabetes Mellitus Type 2 in Adults (ED), Musculoskeletal Pain (ED ) Additional Instructions: Your heart rhythm was normal today. Your blood is not adequately thin. Discussed this with your bank operations officer. Continue current meds. Arrange for dialysis tomorrow. Return any acute change or further problem. Rx as needed for pain. Prescriptions: traMADol [Ultram] 50 mg PO Q6HR PRN #10 tablet PRN Reason: Pain Referrals: PRIMARY CARE, [Primary Care Provider] - 3-5 Days Time of Disposition: 15:00
[2016-08-21] MEDS ORDERED: ULTRAM PO ONE (15:17)
[2016-08-21 15:59] VITALS: BP 168/66
== END 2016-08-21 15:59 | disposition home or self-care (01) ==
LOC: ED 12:46
DX: M79.602 Pain in left arm (principal); M19.90 Unspecified osteoarthritis, unspecified site; J45.909 Unspecified asthma, uncomplicated; I13.2 Hypertensive heart and chronic kidney disease with heart failure and with stage 5 chronic kidney disease, or end stage renal disease; E11.22 Type 2 diabetes mellitus with diabetic chronic kidney disease; N18.6 End stage renal disease; Z99.2 Dependence on renal dialysis; Z79.4 Long term (current) use of insulin
CPT/HCPCS: 36415; 71010; 80048; 80061; 84484; 85025; 85610; 85730; 93005; 93010

== ENCOUNTER 2016-12-17 10:10 | Emergency (ER) | payer MEDICARE ==
[2016-12-17 11:08] LABS: Basophils % (Auto) 1.2 % (0.0-1.8); Eosinophils % (Auto) 8.5 % (0.0-4.3); Hematocrit 33.1 % (35.5-45.6); Hemoglobin 10.4 gm/dl (11.8-15.2); Mean Corpuscular HGB Conc 31 % (32-34); Mean Corpuscular Hemoglobin 27 pg (28-32); Mean Corpuscular Volume 86 fl (84-94); Red Blood Count 3.83 M/mm3 (3.65-5.03); Red Cell Distribution Width 19.6 % (13.2-15.2); White Blood Count 5.5 K/mm3 (4.5-11.0)
[2016-12-17 11:09] LABS: Platelet Count 81 K/mm3 (140-440)
[2016-12-17 11:35] LABS: Albumin 3.8 g/dL (3.9-5); BUN/Creatinine Ratio 3.42; Bilirubin,Total 0.8 mg/dL (0.1-1.2); Calcium 9.8 mg/dL (8.4-10.2); Chloride 97.1 mmol/L (98-107); Potassium 4.1 mmol/L (3.6-5.0); Total Protein 7.5 g/dL (6.3-8.2)
--- NOTE | 2016-12-17 13:27 | Cat Scan Report ---
CT scan of abdomen and pelvis without IV contrast: History: Pain. Findings: Moderate right pleural effusion. No pericardial effusion. Compressive atelectasis right lower lobe due to pleural effusion. Normal liver spleen pancreas. Multiple calculi in gallbladder. Extensive calcification of the abdominal aorta and the splenic vessels and celiac vessels. Calcification of renal vessels. Normal adrenals. Cystic left kidney measures 3.4 cm. Cyst of the right kidney measures 1.1 cm several subcentimeter cysts bilaterally. No hydronephrosis. Normal bladder. No free intraperitoneal fluid or air. No evidence of adenopathy. No evidence of appendicitis or diverticulitis. Stool in colon. Prostate measures 4.3 x 3.2 cm. Impression: Multiple calculi in gallbladder. Right moderate pleural effusion. Extensive calcification of the vessels. Bilateral renal cysts.
[2016-12-17] MEDS ORDERED: CATAPRES ONE (15:21)
[2016-12-17] MEDS ORDERED: CATAPRES PO ONE (15:22)
--- NOTE | 2016-12-17 15:22 | Emergency Department Report ---
ED Abdominal Pain HPI - General Chief Complaint: Abdominal Pain Stated Complaint: ABD PAIN AND THROWING UP Time Seen by Provider: 12/17/16 11:53 Source: patient Mode of arrival: Wheelchair Limitations: Physical Limitation - History of Present Illness MD Complaint: abdominal pain -: Gradual, days(s) Location: diffuse Radiation: none Migration to: no migration Severity scale (0 -10): 2 Quality: aching Consistency: intermittent Improves With: nothing Worsens With: nothing Associated Symptoms: nausea, vomiting. denies: diarrhea, fever, chills, constipation, dysuria, hematemesis, hematochezia, melena, hematuria, anorexia, syncope - Related Data Home Medications Medication Instructions Recorded Confirmed Last Taken Furosemide 80 mg PO DAILY 04/29/13 07/03/16 08/22/15 Gabapentin [Neurontin] 300 mg PO BID 04/29/13 07/03/16 08/22/15 Amlodipine Besylate/Benazepril 1 cap PO DAILY 06/15/14 07/03/16 08/22/15 [amLODIPine-Benazepril 10/40 mg] Carvedilol [Coreg] 25 mg PO BID 06/15/14 07/03/16 08/22/15 Hydralazine HCl [hydrALAZINE] 100 mg PO BID 06/15/14 07/03/16 08/22/15 Insulin NPH Hum/Reg Insulin Hm 10 unit SQ BID 06/15/14 07/03/16 08/22/15 [HumuLIN 70-30 Vial] Cinacalcet [Sensipar] 30 mg PO QDAY 04/04/15 07/03/16 08/22/15 Fluticasone [Flonase] 1 spray NS QDAY 04/04/15 07/03/16 08/22/15 Tiotropium [Spiriva] 18 mcg IH QDAY 04/04/15 07/03/16 08/22/15 Digoxin [Lanoxin] 0.125 mg PO DAILY 08/23/15 07/03/16 08/22/15 Mometasone/Formoterol [Dulera 200 2 puff IH BID PRN 08/23/15 07/03/16 08/22/15 Mcg/5 Mcg Inhaler] OLANzapine [ZyPREXA] 5 mg PO QHS 08/23/15 07/03/16 08/22/15 Sevelamer Carbonate [Renvela] 2.4 gm PO TIDWM 08/23/15 07/03/16 08/22/15 Previous Rx's Medication Instructions Recorded Last Taken Type traMADol [Ultram] 50 mg PO Q6HR PRN #10 tablet 08/21/16 Unknown Rx Ondansetron [Zofran Odt] 4 mg PO Q6H PRN #10 tab.rapdis 12/17/16 Unknown Rx Allergies Allergy/AdvReac Type Severity Reaction Status Date / Time No Known Allergies Allergy Verified 12/17/16 10:26 ED Review of Systems ROS: Stated complaint: ABD PAIN AND THROWING UP Other details as noted in HPI Other: GENERAL: No weight change, fatigue, weakness, fever, chills, or night sweats SKIN: No changes in skin or hair, no itching, no rashes, no jaundice HEAD: No trauma, headache, or visual changes EYES: No blurriness, tearing, itching, acute visual loss, conjunctival discoloration, or scleral icterus EARS: No hearing loss, tinnitus, vertigo, or earache NOSE: No rhinorrhea, stuffiness, sneezing, itching, or epistaxis MOUTH: No bleeding gums, hoarseness, sore throat, or swelling CARDIAC: No new murmur, chest pain, palpitations, dyspnea on exertion, orthopnea , PND, or edema RESPIRATORY: No shortness of breath, wheeze, cough, sputum production, hemoptysis, pneumonia, asthma, bronchitis, or emphysema GI: abdominal pain, n/v URINARY: No frequency, urgency, polyuria, dysuria, hematuria, or incontinence MUSCULOSKELETAL: No muscle weakness, joint stiffness, decrease in range of motion, redness, swelling, tenderness NEUROLOGIC: No loss of sensation, numbness, tingling, tremors, weakness, paralysis, seizures HEMATOLOGIC: No anemia, easy bruising, bleeding, petechiae, or purpura ENDOCRINE: No hot or cold intolerance, sweating, polyuria, polydipsia or, polyphagia no thyroid problems PSYCHIATRIC: No change in mood, no anxiety, no depression ED Past Medical Hx - Past Medical History Hx Hypertension: Yes 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 FISTULA RIGHT FOREARM. HERNIA REPAIR - Social History Smoking Status: Former Smoker Substance Use Type: None - Medications Home Medications: Home Medications Medication Instructions Recorded Confirmed Last Taken Type Furosemide 80 mg PO DAILY 04/29/13 07/03/16 08/22/15 History Gabapentin [Neurontin] 300 mg PO BID 04/29/13 07/03/16 08/22/15 History Amlodipine Besylate/Benazepril 1 cap PO DAILY 06/15/14 07/03/16 08/22/15 History [amLODIPine-Benazepril 10/40 mg] Carvedilol [Coreg] 25 mg PO BID 06/15/14 07/03/16 08/22/15 History Hydralazine HCl [hydrALAZINE] 100 mg PO BID 06/15/14 07/03/16 08/22/15 History Insulin NPH Hum/Reg Insulin Hm 10 unit SQ BID 06/15/14 07/03/16 08/22/15 History [HumuLIN 70-30 Vial] Cinacalcet [Sensipar] 30 mg PO QDAY 04/04/15 07/03/16 08/22/15 History Fluticasone [Flonase] 1 spray NS QDAY 04/04/15 07/03/16 08/22/15 History Tiotropium [Spiriva] 18 mcg IH QDAY 04/04/15 07/03/16 08/22/15 History Digoxin [Lanoxin] 0.125 mg PO DAILY 08/23/15 07/03/16 08/22/15 History Mometasone/Formoterol [Dulera 200 2 puff IH BID PRN 08/23/15 07/03/16 08/22/15 History Mcg/5 Mcg Inhaler] OLANzapine [ZyPREXA] 5 mg PO QHS 08/23/15 07/03/16 08/22/15 History Sevelamer Carbonate [Renvela] 2.4 gm PO TIDWM 08/23/15 07/03/1616 History traMADol [Ultram] 50 mg PO Q6HR PRN #10 tablet 08/21/16 Unknown Rx Ondansetron [Zofran Odt] 4 mg PO Q6H PRN #10 tab.rapdis 12/17/16 Unknown Rx ED Physical Exam - General Limitations: Physical Limitation - Other Other exam information: GENERAL: Patient in no acute distress HEAD: Normocephalic, atraumatic NOSE: No tenderness, discharge, sinus tenderness MOUTH: No erythema, bleeding, exudate HEART: Regular rate and rhythm, no murmur, S1-S2 are auscultated, pulses are symmetric LUNGS: No wheezing, rales, rhonchi, bilateral breath sounds ABDOMEN: Normal bowel sounds, no tenderness, no rebound, no guarding, no masses , no CVA tenderness MUSCULOSKELETAL: Normal joint range of motion, no redness, no swelling, no tenderness NEUROLOGIC: GCS 15, Alert and Oriented x3, Cranial nerves intact, normal sensation, normal strength, normal gait, no cerebellar deficit PSYCHIATRIC: No homicidal or suicidal ideation, no anxiety, no depression, no hallucinations SKIN: Skin is warm and dry, no wounds, no rashes ED Course Vital Signs 12/17/16 12/17/16 12/17/16 10:27 13:06 15:15 Temperature 98.4 F Pulse Rate 58 L 56 L 62 Respiratory 19 18 18 Rate Blood Pressure 175/66 Blood Pressure 188/100 215/100 [Left] O2 Sat by Pulse 100 96 98 Oximetry 12/17/16 12/17/16 15:29 16:21 Temperature Pulse Rate 62 Respiratory Rate Blood Pressure 215/100 Blood Pressure 197/78 [Left] O2 Sat by Pulse Oximetry ED Medical Decision Making - Lab Data Result diagrams: 12/17/16 10:41 12/17/16 10:41 - EKG Data Interpretation: no acute changes - Radiology Data Radiology results: report reviewed - Medical Decision Making Patient comfortable. Updated with results. Plan discharge with outpatient follow-up. Patient agrees with plan and will return if symptoms worsen. Critical care attestation.: If time is entered above; I have spent that time in minutes in the direct care of this critically ill patient, excluding procedure time. ED Disposition Clinical Impression: Gallstones, Abdominal pain in male, Hypertension, uncontrolled Nausea & vomiting Qualifiers: Vomiting type: unspecified Vomiting Intractability: unspecified Qualified Code( s): R11.2 - Nausea with vomiting, unspecified Disposition: DC- TO HOME OR SELFCARE Is pt being admited?: No Condition: Stable Instructions: Biliary Colic (ED), Acute Nausea and Vomiting (ED), Abdominal Pain (ED), Hypertension (ED) Prescriptions: Ondansetron [Zofran Odt] 4 mg PO Q6H PRN #10 tab.rapdis PRN Reason: Nausea Referrals: PRIMARY CAREMD [Primary Care Provider] - 2-3 Days [facility] [Provider Group] - 2-3 Days MICKY ROSARIO MD [Staff Physician] - 2-3 Days Time of Disposition: 16:31
[2016-12-17 16:21] VITALS: BP 197/78
== END 2016-12-17 16:50 | disposition home or self-care (01) ==
LOC: ED 10:10
DX: K80.80 Other cholelithiasis without obstruction (principal); R10.84 Generalized abdominal pain; R11.2 Nausea with vomiting, unspecified; I50.9 Heart failure, unspecified; K21.9 Gastro-esophageal reflux disease without esophagitis; E11.22 Type 2 diabetes mellitus with diabetic chronic kidney disease; I12.0 Hypertensive chronic kidney disease with stage 5 chronic kidney disease or end stage renal disease; N18.6 End stage renal disease; Z99.2 Dependence on renal dialysis
CPT/HCPCS: 36415; 74176; 80053; 83690; 85025; 93005; 93010; 99284

== ENCOUNTER 2017-05-18 12:25 | Outpatient (CLI) | payer MEDICARE ==
--- NOTE | 2017-05-18 13:41 | XRay Report ---
ABDOMEN RADIOGRAPHS INDICATION: Abdominal pain. COMPARISON: 10/31/2015 FINDINGS: Frontal supine abdominal radiographs again demonstrate nonobstructive bowel gas pattern without focal suspicious calcifications, pneumatosis or pneumoperitoneum. Extensive vascular calcifications again seen. Stable multilevel spinal degenerative changes. Mild pulmonary vascular congestion now suspected with small right pleural effusion. Stable left sided battery pack with dual chamber pacemaker leads. CONCLUSION: No acute abdominal radiographic abnormality, though mild pulmonary vascular congestion and right pleural effusion appear new since October 2015, as described. Please correlate. Thank you for the opportunity to participate in this patient's care.
== END 2017-05-18 12:26 | disposition home or self-care (01) ==
LOC: XRAY 12:25
DX: R10.9 Unspecified abdominal pain (principal); R09.89 Other specified symptoms and signs involving the circulatory and respiratory systems; Z95.0 Presence of cardiac pacemaker
CPT/HCPCS: 74000

== ENCOUNTER 2017-06-02 10:44 | Inpatient (IN) | payer MEDICARE ==
[2017-06-02 12:44] LABS: Basophils % (Auto) 1.7 % (0.0-1.8); Hematocrit 31.7 % (35.5-45.6); Hemoglobin 9.9 gm/dl (11.8-15.2); Mean Corpuscular HGB Conc 31 % (32-34); Mean Corpuscular Hemoglobin 29 pg (28-32); Mean Corpuscular Volume 93 fl (84-94); Red Cell Distribution Width 19.1 % (13.2-15.2); White Blood Count 7.2 K/mm3 (4.5-11.0)
[2017-06-02 12:48] LABS: Platelet Count 97 K/mm3 (140-440)
--- NOTE | 2017-06-02 13:51 | XRay Report ---
Flat and upright views of the abdomen. History: Abdominal pain. Findings: The bowel gas pattern is normal. No free air seen on the upright view. Extensive vascular calcifications are noted. Except for extensive degenerative changes in the lumbar spine, no significant bony findings are seen. There is elevation of the right hemidiaphragm. Impression: Nonspecific abdominal findings.
--- NOTE | 2017-06-02 13:59 | Cat Scan Report ---
CT of the abdomen and pelvis without contrast. History: Abdominal pain. Findings: Comparison is made to a previous study performed on December 17, 2016. There is a moderate right pleural effusion, increased in size since the previous study. There is right lower lobe atelectasis, partially imaged. Right hilar calcified node is noted. The liver, spleen, and adrenal glands are normal. Multiple gallstones are noted. The wall of the gallbladder does not appear thickened. There are multiple bilateral renal cysts, unchanged from the previous study. Extensive renal vascular and extensive abdominal vascular calcific lesions are present. Minimal ascites is noted adjacent to the liver. The pancreas is unremarkable and unchanged except for atrophy. There no pelvic masses or abnormal fluid collections. No mesenteric inflammation seen. There is no free air. There is no evidence of appendicitis. Impression: 1. Increasing right pleural effusion and right lower lobe atelectasis. 2. Cholelithiasis. 3. Bilateral stable renal cysts. Pancreatic atrophy and severe diffuse vascular calcifications are stable. 4. Minimal ascites.
[2017-06-02 14:09] LABS: Calcium 8.5 mg/dL (8.4-10.2); Chloride 95.1 mmol/L (98-107); Potassium 3.9 mmol/L (3.6-5.0)
--- NOTE | 2017-06-02 16:02 | Emergency Department Report ---
HPI - General Chief Complaint: Abdominal Pain Time Seen by Provider: 06/02/17 11:07 - HPI HPI: This is a 72-year-old male presents to the emergency department by EMS from dialysis after he had an unresponsive episode while getting dialysis and was unconscious for a couple of minutes. The patient himself says that he is here because of some lower abdominal pain, nausea and vomiting. He has a history of diabetes, CHF, hypertension, bilateral below-knee amputation and is end-stage renal disease on hemodialysis on Thursday//Thursday. He denies any chest pain or shortness of breath. His smart grid engineer is listed as Dr. Eldridge. 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 He has a fistula to the right forearm. He didn't receive any treatment for his symptoms prior to presentation. ED Past Medical Hx - Past Medical History Hx Hypertension: Yes 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 FISTULA RIGHT FOREARM. HERNIA REPAIR - Social History Smoking Status: Never Smoker Substance Use Type: None - Medications Home Medications: Home Medications Medication Instructions Recorded Confirmed Last Taken Type Carvedilol [Coreg] 25 mg PO BID 06/15/14 06/02/17 06/01/17 History Cinacalcet [Sensipar] 30 mg PO QDAY 04/04/15 06/02/17 06/01/17 History Apixaban [Eliquis] 5 mg PO BID 06/02/17 06/02/17 06/01/17 History Furosemide [Lasix TAB] 40 mg PO QDAY 06/02/17 06/02/17 06/01/17 History Insulin Aspart [NovoLOG Flexpen] 10 units SQ BID 06/02/17 06/02/17 06/01/17 History Losartan [Cozaar] 50 mg PO QDAY 06/02/17 06/02/17 06/01/17 History Simvastatin [Zocor TAB] 10 mg PO QHS 06/02/17 06/02/17 06/01/17 History ED Review of Systems ROS: Stated complaint: ABD DISCOMFORT/WEAKNESS Other details as noted in HPI Comment: All other systems reviewed and negative Constitutional: denies: chills, fever Eyes: denies: eye pain, eye discharge, vision change ENT: denies: ear pain, throat pain Respiratory: denies: cough, shortness of breath, wheezing Cardiovascular: syncope. denies: chest pain, palpitations Gastrointestinal: abdominal pain, nausea, vomiting Genitourinary: denies: urgency, dysuria Musculoskeletal: denies: back pain, joint swelling, arthralgia Skin: denies: rash, lesions Neurological: denies: headache, numbness Physical Exam - Physical Exam Vital Signs: Vital Signs 06/02/17 06/02/17 06/02/17 11:18 11:30 11:32 Temperature 97.6 F 97.6 F Pulse Rate 65 65 Respiratory 20 20 20 Rate Blood Pressure 129/52 Blood Pressure 129/52 [Left] O2 Sat by Pulse 99 99 99 Oximetry Physical Exam: GENERAL: The patient is well-developed well-nourished. HENT: Normocephalic. Atraumatic. Patient has moist mucous membranes. EYES: Extraocular motions are intact. NECK: Supple. Trachea is midline. CHEST/LUNGS: Clear to auscultation. There is no respiratory distress noted. HEART/CARDIOVASCULAR: Regular. There is no tachycardia. There is no gallop rub or murmur. ABDOMEN: Abdomen is soft. There is some mild lower abdominal tenderness palpation. No guarding or rebound tenderness. Patient has normal bowel sounds. There is no abdominal distention. SKIN: Skin is warm and dry. NEURO: The patient is awake, alert. The patient is cooperative. The patient has no focal neurologic deficits. The patient has normal speech and gait. MUSCULOSKELETAL: There is no tenderness or deformity. There is no limitation range of motion. There is no evidence of acute injury. There is a patent right forearm dialysis fistula. ED Course Vital Signs 06/02/17 06/02/17 06/02/17 11:18 11:30 11:32 Temperature 97.6 F 97.6 F Pulse Rate 65 65 Respiratory 20 20 20 Rate Blood Pressure 129/52 Blood Pressure 129/52 [Left] O2 Sat by Pulse 99 99 99 Oximetry - Consultations Consultation #1: I spoke with the smart grid engineer on-call for Dr. Eldridge, Dr. Tay, who is agreed to see the patient as a consult for possible need for dialysis. 06/02/17 16:12 ED Medical Decision Making - Lab Data Result diagrams: 06/02/17 12:33 06/02/17 12:33 - EKG Data When compared to previous EKG there are: no significant change Interpretation: unchanged when compared t (12/17/16), other (junctional rhythm, 61 bpm, low voltage QRS, T wave inversions to the lateral leads) - Radiology Data Radiology results: report reviewed, image reviewed interpreted by me: Abdominal x-ray shows nonspecific nonobstructive bowel gas. CT of the abdomen and pelvis without contrast. History: Abdominal pain. Findings: Comparison is made to a previous study performed on December 17, 2016. There is a moderate right pleural effusion, increased in size since the previous study. There is right lower lobe atelectasis, partially imaged. Right hilar calcified node is noted. The liver, spleen, and adrenal glands are normal. Multiple gallstones are noted. The wall of the gallbladder does not appear thickened. There are multiple bilateral renal cysts, unchanged from the previous study. Extensive renal vascular and extensive abdominal vascular calcific lesions are present. Minimal ascites is noted adjacent to the liver. The pancreas is unremarkable and unchanged except for atrophy. There no pelvic masses or abnormal fluid collections. No mesenteric inflammation seen. There is no free air. There is no evidence of appendicitis. Impression: 1. Increasing right pleural effusion and right lower lobe atelectasis. 2. Cholelithiasis. 3. Bilateral stable renal cysts. Pancreatic atrophy and severe diffuse vascular calcifications are stable. 4. Minimal ascites. Transcribed By: MRP Dictated By: LEBRON ARIAS MD Electronically Authenticated By: LEBRON ARIAS MD Signed Date/Time: 06/02/17 1342 PROCEDURE: CT head without contrast. TECHNIQUE: Computerized tomography of the head was performed without contrast material. HISTORY: Unresponsive episode. COMPARISON: No prior studies are available for comparison. FINDINGS: There is mild cerebral atrophy. The mustafa matter and white matter appear normal. There are no mass lesions. There is no intracranial hemorrhage. There are no definite signs of acute infarction. The calvarium appears intact. There is fluid in a few of the mastoid air cells bilaterally. The paranasal sinuses are clear as far as visualized. IMPRESSION: Normal study of the brain for age. Mild mastoiditis. Transcribed By: JOSE ARMANDO Dictated By: LEBRON DENTON MD Electronically Authenticated By: LEBRON DENTON MD Signed Date/Time: 06/02/17 1370 - Medical Decision Making This patient originally came in complaining of not being able to have dialysis secondary to lower abdominal discomfort, nausea and vomiting. Later on I was going to his records and he was sent in because he went unconscious and/or unresponsive for multiple minutes while getting dialysis. This very well could be something like dialysis disequilibrium syndrome but with the patient's significant history including CVA I feel that he needs further evaluation. CT of the head without contrast does not show any bleed, shift, mass or any acute process. Regarding his abdominal pain, labs are been mostly unremarkable and he had a normal abdominal x-ray. CT scan does not show any etiology of his abdominal pain but does show some pleural effusions in the lower lung field, calcifications. Nephrology was contacted and is aware of the patient's admission for possible future dialysis. Patient accepted for admission by the hospitalist, Dr Pretty. - Differential Diagnosis Constipation, bowel obstruction, diverticulitis, TIA, CVA Critical Care Time: No Critical care attestation.: If time is entered above; I have spent that time in minutes in the direct care of this critically ill patient, excluding procedure time. ED Disposition Clinical Impression: Unresponsive episode, ESRD needing dialysis Abdominal pain Qualifiers: Abdominal location: lower abdomen, unspecified Qualified Code(s): R10.30 - Lower abdominal pain, unspecified Disposition: OP ADMIT IP TO THIS HOSP Is pt being admited?: Yes Condition: Stable Time of Disposition: 16:09
[2017-06-02 18:07] LABS: Albumin/Globulin Ratio 1.2 %; Bilirubin,Direct 0.5 mg/dL (0-0.2); Bilirubin,Indirect 0.6 mg/dL; Bilirubin,Total 1.1 mg/dL (0.1-1.2); Total Protein 7.3 g/dL (6.3-8.2)
--- NOTE | 2017-06-02 19:28 | Cat Scan Report ---
FINAL REPORT PROCEDURE: CT head without contrast. TECHNIQUE: Computerized tomography of the head was performed without contrast material. HISTORY: Unresponsive episode. COMPARISON: No prior studies are available for comparison. FINDINGS: There is mild cerebral atrophy. The mustafa matter and white matter appear normal. There are no mass lesions. There is no intracranial hemorrhage. There are no definite signs of acute infarction. The calvarium appears intact. There is fluid in a few of the mastoid air cells bilaterally. The paranasal sinuses are clear as far as visualized. IMPRESSION: Normal study of the brain for age. Mild mastoiditis.
--- NOTE | 2017-06-02 21:11 | Event Note ---
Date: 06/02/17 See dictated H/p in reports
[2017-06-02] MEDS ORDERED: NON-FORMULARY (Simvastatin 10 MG) PO SCH (22:00)
[2017-06-02] MEDS ORDERED: HEPARIN SUB-Q SCH (22:00)
[2017-06-02] MEDS ORDERED: NON-FORMULARY (Insulin Aspart [Novolog Flexpen] 10 UNITS) SQ SCH (22:00)
[2017-06-02] MEDS ORDERED: LASIX PO SCH (22:30)
[2017-06-03] MEDS: NOVOLOG SUB-Q SCH ×2 (08:24→16:30)
[2017-06-03] MEDS: COREG PO SCH ×2 (09:11→10:10)
[2017-06-03] MEDS: COZAAR PO SCH ×2 (09:12→10:10)
[2017-06-03] MEDS: ELIQUIS PO SCH ×2 (09:13→10:11)
[2017-06-03] MEDS ORDERED: SENSIPAR PO SCH (10:00)
--- NOTE | 2017-06-03 11:04 | History and Physical Report ---
CHIEF COMPLAINT: Abdominal pain and altered sensorium. HISTORY OF PRESENT ILLNESS: A 72-year-old male with history of end-stage renal disease on dialysis, hypertension, bilateral below-knee amputation, diabetes, sent from dialysis center for unresponsive episode while getting dialysis and apparently was unconscious for a few minutes. The patient stated that he has been here for lower abdominal pain, nausea and vomiting. The patient has also hypertension, diabetes, and CHF. The patient follows with Dr. Eldridge, lead relay tester. The patient has residual expressive dysphasia, fistula in the right arm. No fever, no chills. PAST MEDICAL HISTORY: As mentioned, hypertension, cerebrovascular accident with expressive dysphasia from 2012. Acute [place], congestive heart failure, diabetes, reflux, end-stage renal disease with dialysis on Thursday, , and Thursday. Arthritis, COPD, tricuspid, and mitral regurgitation. PAST SURGICAL HISTORY: The patient has internal defibrillator, bilateral BKA, fistula in the right arm and hernia repair. SOCIAL HISTORY: Does not smoke. FAMILY HISTORY: Hypertension. CURRENT MEDICATIONS: On the chart, Coreg 25 b.i.d., hydralazine 100 mg b.i.d., insulin 70/30, 10 units twice a day. REVIEW OF SYSTEMS: HEENT: No sore throat, no postnasal drip. CARDIOVASCULAR AND RESPIRATORY: No shortness of breath. No chest pain. GASTROINTESTINAL: Has nausea and vomiting x 2, no diarrhea. GENITOURINARY: No dysuria, no flank pain. MUSCULOSKELETAL: No joint pains. Bilateral below knee amputation. CENTRAL NERVOUS SYSTEM: Altered sensorium for 2-3 minutes, now alert and oriented. SKIN: Normal. No rashes. A 14-point review of systems done. PHYSICAL EXAMINATION: GENERAL: Elderly male, cooperative during examination. VITAL SIGNS: Blood pressure 129/52, temperature 97.6, pulse is ____, respirations are 20. HEENT: Unremarkable. Pupils equal and reactive. NECK: Supple, no lymphadenopathy, no thyromegaly. LUNGS: Clear to auscultation and percussion. Good air entry. CARDIOVASCULAR: S1, S2 heard. No gallop, no murmur, no rub. Apical impulse in left fifth intercostal space and midclavicular line. ABDOMEN: Soft and benign. No hepatosplenomegaly. No guarding, no rigidity. Hernial orifices are normal. EXTREMITIES: Poor pedal pulses, bilateral below-knee amputation. CENTRAL NERVOUS SYSTEM: Alert and oriented x 4, nonfocal exam. SKIN: Normal. LABORATORY DATA: Hemoglobin is 9.9, hematocrit is 31.7, BUN is 40 and creatinine is 9.5. Potassium is normal, 3.9. CT of the head was normal. Abdominal x-ray was nonspecific abdominal findings. ASSESSMENT AND PLAN: 1. Acute encephalopathy, resolved, probably metabolic secondary to uremia. Continue hemodialysis on a regular basis. Nephrology consulted. No further workup. The patient had extensive workup as far as cerebrovascular accident and syncope are concerned. 2. Hypertension. Continue hydralazine and Coreg. 3. Cerebrovascular accident. Continue supportive care. 4. Insulin-dependent diabetes. Continue his home insulin of 70/30 insulin, 10 units twice a day and coverage. 5. Chronic obstructive pulmonary disease. Continue Spiriva and DuoNebs. 6. End-stage renal disease. Continue dialysis. Continue Renvela. 7. Peripheral neuropathy. Continue gabapentin. 8. Congestive heart failure. Continue furosemide 80 mg daily. 9. Chronic pain. Continue tramadol. 10. Deep venous thrombosis prophylaxis, heparin 5000 q. 12 hours. JOB# [id number] VSM/NTS
[2017-06-03] MEDS ORDERED: NACL 0.9% 100 ML IV PRN (11:30)
--- NOTE | 2017-06-03 11:46 | Consultation ---
History of Present Illness - Reason for Consult Consult date: 06/03/17 end stage renal disease Requesting physician: XENIA CORTES - History of Present Illness This is a 72-year-old male with a history of end-stage renal disease, diabetes mellitus, hypertension and previous cerebrovascular accident and peripheral vascular disease s/p b/l BKA, admitted on account of episode of unresponsiveness for several minutes while getting dialysis, pt also states that he had some lower abdominal pain, nausea and vomiting, when above episode happened. CT A/P showed evidence of chronic cholelithiasis, along with e/o increasing R pleural effusion. Renal consult is requested for management of ESRD and HD. Past History Past Medical History: atrial fib, CAD, diabetes, dialysis, hypertension, PVD, renal failure, stroke, other Past Surgical History: Other (AV fistula placements right upper extremity, AICD in , bilateral below-knee amputations) Social history: denies: smoking, alcohol abuse, prescription drug abuse, IV drug use Family history: diabetes, hypertension Medications and Allergies Allergies Allergy/AdvReac Type Severity Reaction Status Date / Time No Known Allergies Allergy Verified 12/17/16 10:26 Home Medications Medication Instructions Recorded Confirmed Last Taken Type Carvedilol [Coreg] 25 mg PO BID 06/15/14 06/02/17 06/01/17 History Cinacalcet [Sensipar] 30 mg PO QDAY 04/04/15 06/02/17 06/01/17 History Apixaban [Eliquis] 5 mg PO BID 06/02/17 06/02/17 06/01/17 History Furosemide [Lasix TAB] 40 mg PO QDAY 06/02/17 06/02/17 06/01/17 History Insulin Aspart [NovoLOG Flexpen] 10 units SQ BID 06/02/17 06/02/17 06/01/17 History Losartan [Cozaar] 50 mg PO QDAY 06/02/17 06/02/17 06/01/17 History Simvastatin [Zocor TAB] 10 mg PO QHS 06/02/17 06/02/17 06/01/17 History Active Meds: Active Medications Apixaban (Eliquis) 5 mg PO BID GRACIE PRN Reason: Protocol Last Admin: 06/03/17 10:11 Dose: Not Given Carvedilol (Coreg) 25 mg PO BID [facility] Last Admin: 06/03/17 10:10 Dose: Not Given Cinacalcet (Sensipar) 30 mg PO QDAY [facility] Last Admin: 06/03/17 09:12 Dose: 30 mg Furosemide (Lasix) 40 mg PO QDAY [facility] Last Admin: 06/03/17 09:11 Dose: 40 mg Sodium Chloride (Nacl 0.9%) 100 mls @ 999 mls/hr IV CHAZ PRN PRN Reason: Hypotension Insulin Aspart (Novolog) 10 units SUB-Q BIDDIAB [facility] Last Admin: 06/03/17 08:24 Dose: 10 units Losartan Potassium (Cozaar) 50 mg PO QDAY [facility] Last Admin: 06/03/17 10:10 Dose: Not Given Pravastatin Sodium (Pravachol) 20 mg PO QHS [facility] Review of Systems All systems: negative Constitutional: weakness Gastrointestinal: abdominal pain, nausea, vomiting Exam - Vital Signs Vital signs: Vital Signs Temp Pulse Resp BP Pulse Ox 97.6 F 65 20 129/52 99 06/02/17 11:18 06/02/17 11:18 06/02/17 11:18 06/02/17 11:18 06/02/17 11:18 - General Appearance General appearance: appears stated age, chronically ill EENT: ATNC, PERRL, mucous membranes moist Neck: Present: neck supple Respiratory: Decreased Breath Sounds Heart: regular, S1S2 Gastrointestinal: Present: normoactive bowel sounds Integumentary: no rash, other (b/l BKA ) Neurologic: no focal deficit, alert and oriented x3, strength 5/5, CN 3-12 intact Psychiatric: mood/affect appropriate, cooperative Results - Lab Results 06/02/17 12:33 06/02/17 12:33 Most recent lab results Calcium 8.5 mg/dL (8.4-10.2) 06/02/17 12:33 Laboratory Tests 07/06/16 06/02/17 06/02/17 11:48 12:33 12:33 POC Glucose 80 Lactic Acid 1.70 Calcium 8.5 Total Bilirubin Direct Bilirubin Indirect Bilirubin AST ALT Alkaline Phosphatase Total Protein Albumin Albumin/Globulin Ratio 06/02/17 06/02/17 06/02/17 16:12 19:10 22:46 POC Glucose 74 217 H Lactic Acid Calcium Total Bilirubin 1.10 Direct Bilirubin 0.5 H Indirect Bilirubin 0.6 AST 20 ALT 17 Alkaline Phosphatase 123 Total Protein 7.3 Albumin 4.0 Albumin/Globulin Ratio 1.2 06/03/17 08:09 POC Glucose 177 H Lactic Acid Calcium Total Bilirubin Direct Bilirubin Indirect Bilirubin AST ALT Alkaline Phosphatase Total Protein Albumin Albumin/Globulin Ratio Assessment and Plan - Patient Problems (1) ESRD needing dialysis Current Visit: Yes Status: Acute Plan to address problem: HD today, since pt did not get full treatment yesterday, will transition to TTS schedule tomorrow (2) Abdominal pain Current Visit: Yes Status: Acute Qualifiers: Abdominal location: lower abdomen, unspecified Qualified Code(s): R10.30 - Lower abdominal pain, unspecified Plan to address problem: possibly due to cholelithiasis? LFT wnl, consider GI consult (3) Unresponsive episode Current Visit: Yes Status: Acute Plan to address problem: likely vasovagal episode? pt with normalized mental status. CT head unremarkable (4) Hypertensive chronic kidney disease with stage 5 chronic kidney disease or end stage renal disease Current Visit: Yes Status: Acute Plan to address problem: cont current BP regimen (5) Chronic atrial fibrillation Current Visit: Yes Status: Acute Plan to address problem: currently rate controlled, cont A/C with apixaban
[2017-06-03] MEDS ORDERED: NACL 0.9 (PRIMING MACHINE ONLY DIALYSIS) MC ONE ×3 (15:00→16:19)
--- NOTE | 2017-06-03 16:23 | Progress Note ---
Subjective Date of service: 06/03/17 Objective - Constitutional Vitals: Vital Signs - 12hr 06/03/17 06/03/17 06/03/17 08:26 09:11 09:12 Temperature 98.7 F Pulse Rate 85 66 66 Respiratory 18 Rate Blood Pressure 177/69 177/69 Blood Pressure 118/64 [Left] O2 Sat by Pulse 96 Oximetry 06/03/17 06/03/17 06/03/17 10:00 14:35 14:45 Temperature 98.1 F Pulse Rate 66 64 64 Respiratory 18 18 Rate Blood Pressure 141/74 144/73 Blood Pressure [Left] O2 Sat by Pulse 96 Oximetry - Labs CBC & Chem 7: 06/02/17 12:33 06/02/17 12:33 Labs: Abnormal lab results 06/02/17 06/02/17 06/03/17 Range/Units 16:12 22:46 08:09 POC Glucose 217 H 177 H (70-105) Direct Bilirubin 0.5 H (0-0.2) mg/dL 06/03/17 Range/Units 11:42 POC Glucose 106 H (70-105) Direct Bilirubin (0-0.2) mg/dL
--- NOTE | 2017-06-03 16:30 | Discharge Summary ---
Providers - Providers Date of Admission: 06/02/17 16:09 Date of discharge: 06/03/17 Attending physician: MC GONSALES 06/02/17 16:03 Consult to Physician [CONS] Routine Consulting Provider: LAVINIA ABEBE Reason For Exam: dialysis Place consult to:: NEPHROLOGY Notified:: Y Was contact made?: Yes If yes, spoke with:: Dr Tay Time called:: 16:00 Primary care physician: N[employer]BER Hospitalization Condition: Stable Hospital course: See dictated discharge summary in reports Disposition: DC-01 TO HOME OR SELFCARE Time spent for discharge: 32 minutes Core Measure Documentation - Palliative Care Palliative Care/ Comfort Measures: Not Applicable - Core Measures Any of the following diagnoses?: none Exam - Constitutional Vitals: Temp Pulse Resp BP Pulse Ox 98.1 F 64 18 144/73 96 06/03/17 14:35 06/03/17 14:45 06/03/17 14:35 06/03/17 14:45 06/03/17 10:00 General appearance: Present: no acute distress, well-nourished - EENT Eyes: Present: PERRL ENT: hearing intact, clear oral mucosa - Neck Neck: Present: supple, normal ROM - Respiratory Respiratory effort: normal Respiratory: bilateral: CTA - Cardiovascular Heart Sounds: Present: S1 & S2. Absent: rub, click - Extremities Extremities: pulses symmetrical, No edema Peripheral Pulses: within normal limits - Abdominal General gastrointestinal: Present: soft, non-tender, non-distended, normal bowel sounds Male genitourinary: Present: normal - Integumentary Integumentary: Present: clear, warm, dry - Musculoskeletal Musculoskeletal: gait normal, strength equal bilaterally - Psychiatric Psychiatric: appropriate mood/affect, intact judgment & insight - Neurologic Neurologic: CNII-XII intact, moves all extremities Plan Activity: no restrictions Diet: renal Follow up with: PRIMARY CARE, [Primary Care Provider] - 3-5 Days
[2017-06-03 20:58] VITALS: BP 169/92
[2017-06-03] MEDS ORDERED: PRAVACHOL PO SCH (22:00)
--- NOTE | 2017-06-15 09:34 | Discharge Summary ---
HISTORY OF PRESENT ILLNESS: The patient is admitted for: 1. Acute encephalopathy secondary to uremia. The patient was continued on hemodialysis. Nephrology was consulted. 2. Hypertension. The patient was continued on hydralazine and Coreg. 3. Cerebrovascular accident in the past and was continued on supportive care. 4. Insulin-dependent diabetes, was continued on his home insulin and coverage. 5. Chronic obstructive pulmonary disease, was continued on Spiriva and DuoNeb. 6. End-stage renal disease, was continued on hemodialysis. 7. Peripheral neuropathy, was continued on gabapentin. 8. Congestive heart failure, was continued on furosemide 80 mg daily. 9. Chronic pain, was continued on tramadol. 10. Deep vein thrombosis, heparin 5000 units every 12 hours. HOSPITAL COURSE: The patient did well. His altered sensorium and confusion resolved after the dialysis. The patient was in stable condition and his blood pressure was stable at the time of discharge, 153/81. Hence, the patient was discharged to home with instructions to have continued dialysis on a regular basis. Also, follow up with Nephrology. DISCHARGE DIAGNOSES: As mentioned: 1. Acute encephalopathy. 2. Hypertension. 3. History of cerebrovascular accident. 4. Insulin-dependent diabetes. 5. Chronic obstructive pulmonary disease. 6. End-stage renal disease, needing dialysis. 7. Congestive heart failure. 8. Peripheral neuropathy. 9. Chronic pain. JOB# [id number] SALLIE/FILEMON
== END 2017-06-03 20:50 | disposition home or self-care (01) | DRG 291 ==
LOC: ED 10:44 → 2B-ACE 16:09
PROVIDERS: ADMIT Internal Medicine; ATTEND Internal Medicine
PROC: 5A1D70Z Performance of Urinary Filtration, Intermittent, Less than 6 Hours Per Day (ICD-10-PCS; principal; 2017-06-02)
DX: I13.2 Hypertensive heart and chronic kidney disease with heart failure and with stage 5 chronic kidney disease, or end stage renal disease (principal); N18.6 End stage renal disease; G93.40 Encephalopathy, unspecified; K21.9 Gastro-esophageal reflux disease without esophagitis; E11.22 Type 2 diabetes mellitus with diabetic chronic kidney disease; E11.42 Type 2 diabetes mellitus with diabetic polyneuropathy; M19.90 Unspecified osteoarthritis, unspecified site; I08.1 Rheumatic disorders of both mitral and tricuspid valves; I48.2 Chronic atrial fibrillation; J44.9 Chronic obstructive pulmonary disease, unspecified; G89.29 Other chronic pain; I25.10 Atherosclerotic heart disease of native coronary artery without angina pectoris; E11.51 Type 2 diabetes mellitus with diabetic peripheral angiopathy without gangrene; Z83.3 Family history of diabetes mellitus; Z95.810 Presence of automatic (implantable) cardiac defibrillator; Z89.512 Acquired absence of left leg below knee; Z89.511 Acquired absence of right leg below knee; I25.2 Old myocardial infarction; Z79.899 Other long term (current) drug therapy; Z82.49 Family history of ischemic heart disease and other diseases of the circulatory system; I69.321 Dysphasia following cerebral infarction
CPT/HCPCS: 36415; 70450; 74020; 74176; 80048; 80074; 82140; 82962; 85025; 93005; 93010; 99285; A9270-GY; J1815; J7030

== ENCOUNTER 2017-06-04 03:41 | Inpatient (IN) | payer MEDICARE ==
[2017-06-04] MEDS ORDERED: NACL 0.9% 1000 ML 1,000 ML IV ONE (06:38)
--- NOTE | 2017-06-04 07:26 | XRay Report ---
AP CHEST: HISTORY: Hypertension Pacemaker devices unchanged since 08/21/16. Mild cardiomegaly, mild pulmonary venous congestion and moderate right pleural effusion have developed. There is compressive atelectasis in the right lower lung. No pneumothorax. IMPRESSION: Mild CHF. This appears to be new since 08/21/16.
[2017-06-04] MEDS ORDERED: ZOSYN/NS 4.5GM/100ML 4.5 GM/100 ML VIAL IV ONE (07:51)
[2017-06-04 08:03] LABS: Basophils % (Auto) 1.4 % (0.0-1.8); Eosinophils % (Auto) 1.8 % (0.0-4.3); Hematocrit 31.6 % (35.5-45.6); Hemoglobin 10.1 gm/dl (11.8-15.2); Mean Corpuscular HGB Conc 32 % (32-34); Mean Corpuscular Hemoglobin 30 pg (28-32); Mean Corpuscular Volume 95 fl (84-94); Red Blood Count 3.33 M/mm3 (3.65-5.03); Red Cell Distribution Width 19.6 % (13.2-15.2); White Blood Count 8.1 K/mm3 (4.5-11.0)
[2017-06-04 08:06] LABS: Platelet Count 97 K/mm3 (140-440)
[2017-06-04 08:09] LABS: INR 1.81 (0.87-1.13)
[2017-06-04 08:10] LABS: Partial Thromboplastin Time 42.5 Sec. (24.2-36.6)
[2017-06-04 08:12] LABS: Albumin 3.9 g/dL (3.9-5); Albumin/Globulin Ratio 1.1 %; Bilirubin,Total 3.6 mg/dL (0.1-1.2); Calcium 8.9 mg/dL (8.4-10.2); Chloride 92.2 mmol/L (98-107); Potassium 4.5 mmol/L (3.6-5.0); Total Protein 7.4 g/dL (6.3-8.2)
--- NOTE | 2017-06-04 08:30 | Ultrasound Report ---
RIGHT UPPER QUADRANT ULTRASOUND: HISTORY: Biliary colic. Technique: Transabdominal ultrasound imaging with Doppler interrogation. FINDINGS: There are multiple large shadowing gallstones within the gallbladder. No abnormal distention. The gallbladder wall measures 3 mm. No pericholecystic fluid. The CBD measures 5.9 mm. No intrahepatic biliary dilatation. The right kidney is echogenic with diffuse cortical thinning consistent with chronic renal parenchymal disease. Few scattered simple renal cysts but no mass or obstructive uropathy. Images of the liver parenchyma, pancreas, and aorta are within normal limits. No perihepatic ascites. There is however a small right pleural effusion which is partially imaged. IMPRESSION: Cholelithiasis. No convincing findings of acute cholecystitis. The diameter of the CBD at 5.9 mm. Chronic renal parenchymal disease. Small right pleural effusion.
[2017-06-04] MEDS ORDERED: DULCOLAX PR PRN (09:09)
--- NOTE | 2017-06-04 09:19 | History and Physical Report ---
<DAVIN OH - Last Filed: 06/05/17 16:10> History of Present Illness Date of examination: 06/04/17 Date of admission: 06/04/2017 Chief complaint: Abdominal pain and nausea and vomiting History of present illness: Patient is a 72 years old male with past medical history atrial fib, CAD, diabetes, dialysis, CVA, ESRD, hypertension and PVD Patient states that for the past two days she has felt bloated and has had a decrease in appetite. Patient was here recently admitted on 06/02/17 due to episode of unresponsiveness for several minutes while getting dialysis, lower abdominal pain nausea and vomiting. He was Discharge on 06/03/17. Since patient began having intermittent lower abdominal pain that initially felt like gas pains but it has now progressed to being nearly constant. Since yesterday he has had severe nausea and vomiting. His last bowel movement yesterday. Initially, when he would eat the pain would increase;no reliving factors. Currently, the pain is described as a constant dull, diffuse pain that intermittently and well localized. The intensity of the pain has been increasing over the past two days and on pain scale she now rates the pain at 8 out of 10.He denies a recent history of fever, jaundice, pruritis, diarrhea, hemoptysis, diverticulitis, colon cancer, peptic ulcer disease, gastritis, acid reflux, gall bladder disease or cholelithiasis. She denies a history of smoking or alcohol consumption. Past History Past Medical History: atrial fib, CAD, ESRD, hypertension, hyperlipidemia, PVD Past Surgical History: Other (AV fistula placements right upper extremity, AICD in , bilateral below-knee amputations) Social history: denies: smoking, alcohol abuse Family history: diabetes, hypertension Medications and Allergies Allergies Allergy/AdvReac Type Severity Reaction Status Date / Time No Known Allergies Allergy Verified 12/17/16 10:26 Home Medications Medication Instructions Recorded Confirmed Last Taken Type Insulin Aspart [NovoLOG Flexpen] 10 units SQ BID 06/02/17 06/23/17 06/01/17 History Losartan [Cozaar] 50 mg PO DAILY 06/02/17 06/24/17 06/01/17 History Simvastatin [Zocor TAB] 10 mg PO QHS 06/02/17 06/23/17 06/01/17 History Apixaban [Eliquis] 5 mg PO BID tablet 06/03/17 06/23/17 Unknown Rx Carvedilol [Coreg] 25 mg PO BID tablet 06/03/17 06/23/17 Unknown Rx Tiotropium [place] [Spiriva] 1 puff PO DAILY 06/04/17 06/23/17 Unknown History Albuterol Sulfate [Albuterol 0.63% 0.63 mg IH TID PRN 06/23/17 06/23/17 Unknown History NEBS] Apixaban [Eliquis] 5 mg PO BID 06/23/17 06/23/17 Unknown History Cinacalcet HCl [Sensipar] 60 mg PO DAILY 06/23/17 06/23/17 Unknown History Esomeprazole Magnesium [NexIUM] 40 mg PO BID 06/23/17 06/23/17 Unknown History Furosemide [Lasix TAB] 40 mg PO DAILY 06/23/17 06/23/17 Unknown History Aspirin EC [Aspirin Enteric Coated 81 mg PO QDAY tablet 06/25/17 Unknown Rx TAB] Pravastatin [Pravachol] 20 mg PO QHS tablet 06/25/17 Unknown Rx Apixaban [Eliquis] 2.5 mg PO Q12HR tablet 06/29/17 Unknown Rx Active Meds: Active Medications Acetaminophen (Tylenol) 650 mg PO Q4H PRN PRN Reason: Pain MILD(1-3)/Fever >100.5/DYE Bisacodyl (Dulcolax) 10 mg [place] QDAY PRN PRN Reason: Constipation unrelieved by MOM Heparin Sodium (Porcine) (Heparin) 5,000 unit SUB-Q Q12HR GRACIE Sodium Chloride (Nacl 0.9% 1000 Ml) 1,000 mls @ 125 mls/hr IV ONCE ONE Stop: 06/04/17 14:37 Last Admin: 06/04/17 08:59 Dose: 125 mls/hr Review of Systems Constitutional: no weight loss, no weight gain, no fever, no chills Ears, nose, mouth and throat: no decreased hearing, no nose pain, no nasal congestion Cardiovascular: no chest pain, no rapid/irregular heart beat, no edema, no syncope, no lightheadedness, no shortness of breath Respiratory: no cough, no cough with sputum, no excessive sputum, no shortness of breath Gastrointestinal: abdominal pain, nausea, vomiting, no constipation, no change in bowel habits, no melena, no hematochezia Genitourinary Male: no urinary frequency, no urinary hesitancy, no nocturia, no incontinence Musculoskeletal: no neck stiffness, no neck pain, no shooting arm pain, no arm numbness/tingling Integumentary: no redness, no sores, no wounds, no jaundice Neurological: no weakness, no parathesias, no numbness, no seizures Psychiatric: no memory loss, no change in sleep habits, no sleep disturbances, no insomnia, no hypersomnia Endocrine: no excessive thirst, no polydipsia, no polyuria, no nocturia Hematologic/Lymphatic: no easy bruising, no easy bleeding Allergic/Immunologic: no urticaria, no allergic rhinitis Exam - Constitutional Vitals: Temp Pulse Resp BP Pulse Ox 99.1 F 73 20 183/84 98 06/04/17 07:22 06/04/17 07:22 06/04/17 07:22 06/04/17 07:22 06/04/17 07:22 General appearance: Present: no acute distress - EENT Eyes: Present: PERRL ENT: hearing intact - Neck Neck: Present: supple - Respiratory Respiratory effort: normal Respiratory: bilateral: CTA - Cardiovascular Rhythm: regular Heart Sounds: Present: S1 & S2 - Extremities Extremity abnormal: other (Bilateral BKA) - Abdominal General gastrointestinal: Present: soft, tender Localized gastrointestinal: tender: LUQ, LLQ Male genitourinary: Present: deferred - Rectal Rectal Exam: deferred - Integumentary Integumentary: Present: clear, warm, dry - Musculoskeletal Musculoskeletal: strength equal bilaterally, other (Bilateral BKA) - Psychiatric Psychiatric: appropriate mood/affect - Neurologic Neurologic: CNII-XII intact - Allied Health Allied health notes reviewed: nursing Results - Labs CBC & Chem 7: 06/05/17 06:42 06/05/17 06:42 Labs: Laboratory Last Values WBC 8.1 K/mm3 (4.5-11.0) 06/04/17 07:06 RBC 3.33 M/mm3 (3.65-5.03) L 06/04/17 07:06 Hgb 10.1 gm/dl (11.8-15.2) L 06/04/17 07:06 Hct 31.6 % (35.5-45.6) L 06/04/17 07:06 MCV 95 fl (84-94) H 06/04/17 07:06 MCH 30 pg (28-32) 06/04/17 07:06 MCHC 32 % (32-34) 06/04/17 07:06 RDW 19.6 % (13.2-15.2) H 06/04/17 07:06 Plt Count 97 K/mm3 (140-440) L 06/04/17 07:06 Lymph % (Auto) 9.8 % (13.4-35.0) L 06/04/17 07:06 [place] % (Auto) 12.0 % (0.0-7.3) H 06/04/17 07:06 Eos % (Auto) 1.8 % (0.0-4.3) 06/04/17 07:06 Baso % (Auto) 1.4 % (0.0-1.8) 06/04/17 07:06 Lymph # 0.8 K/mm3 (1.2-5.4) L 06/04/17 07:06 [place] # 1.0 K/mm3 (0.0-0.8) H 06/04/17 07:06 Eos # 0.1 K/mm3 (0.0-0.4) 06/04/17 07:06 Baso # 0.1 K/mm3 (0.0-0.1) 06/04/17 07:06 Seg Neutrophils % 75.0 % (40.0-70.0) H 06/04/17 07:06 Seg Neutrophils # 6.1 K/mm3 (1.8-7.7) 06/04/17 07:06 PT 21.9 Sec. (12.2-14.9) H 06/04/17 07:06 INR 1.81 (0.87-1.13) H 06/04/17 07:06 APTT 42.5 Sec. (24.2-36.6) H 06/04/17 07:06 Sodium 137 mmol/L (137-145) 06/04/17 07:06 Potassium 4.5 mmol/L (3.6-5.0) 06/04/17 07:06 Chloride 92.2 mmol/L (98-107) L 06/04/17 07:06 Carbon Dioxide 22 mmol/L (22-30) 06/04/17 07:06 Anion Gap 27 mmol/L 06/04/17 07:06 BUN 36 mg/dL (9-20) H 06/04/17 07:06 Creatinine 7.8 mg/dL (0.8-1.5) H 06/04/17 07:06 Estimated GFR 8 ml/min 06/04/17 07:06 BUN/Creatinine Ratio 5 % 06/04/17 07:06 Glucose 117 mg/dL (75-100) H 06/04/17 07:06 Lactic Acid 2.50 mmol/L (0.7-2.0) H* 06/04/17 07:06 Calcium 8.9 mg/dL (8.4-10.2) 06/04/17 07:06 Magnesium 1.90 mg/dL (1.7-2.3) 06/04/17 07:06 Total Bilirubin 3.60 mg/dL (0.1-1.2) H 06/04/17 07:06 AST 152 units/L (5-40) H 06/04/17 07:06 ALT 54 units/L (7-56) 06/04/17 07:06 Alkaline Phosphatase 133 units/L (35-129) H 06/04/17 07:06 Troponin T 0.158 ng/mL (0.00-0.029) H* 06/04/17 07:06 Total Protein 7.4 g/dL (6.3-8.2) 06/04/17 07:06 Albumin 3.9 g/dL (3.9-5) 06/04/17 07:06 Albumin/Globulin Ratio 1.1 % 06/04/17 07:06 Lipase 47 units/L (13-60) 06/04/17 07:06 Blood Type A POSITIVE 06/04/17 07:06 Antibody Screen Negative 06/04/17 07:06 Assessment and Plan Assessment and plan: Patient is a 72 years old male with past medical history atrial fib, CAD, diabetes, dialysis, CVA, ESRD, hypertension and PVD who presents to the Emergency department for lower abdominal pain, nausea and vomiting for the past 2 days.Patient was here recently admitted on 06/02/17 due to episode of unresponsiveness for several minutes while getting dialysis, lower abdominal pain nausea and vomiting. He was Discharge on 06/03/17. Since patient began having intermittent lower abdominal pain Abdominal Pain Most likely secondary to gastritis Started clear liquids diet as tolerated Gently IV hydration due to ESRD Patient-controlled GI consult Supportive care Cholelithiasis US showed Cholelithiasis; no evidence of acute cholecystitis HIDA scan re revealed no evidence of acute cholecystitis Supportive care Surgery consulted and recommended no surgical intervention at this time. GI consult Intractable nausea and vomiting Nothing by mouth Antiemetic Closely monitor electrolytes Transaminitis, elevated bilirubin bilirubin trending down R/o choledocolothiasis, may need MRCP per surgery GI consulted End-stage renal disease on dialysis Nephrology consulted Diabetes mellitus Accu-Chek before meals and at bedtime Sliding scale insulin/NovoLog ADA carbohydrate consistent diet Hypertensive urgency Hold PO antihypertensive medications due to N/V IV hyralyzine for SBP>160 Closely monitor blood pressure CAD with elevated troponins Troponin trending up Most likely due to ESRD We will obtain Serial cardiac enzyme troponin EKG sinus rhythm, no changes Stress test ordered Afib Hold eliquis for now until N/V improve DVT prophylaxis Advance Directives: Yes VTE prophylaxis?: Chemical Contraindication Mechanical VTE Prophylaxis: Treatment Not Indicated Plan of care discussed with patient/family: Yes <ANA TOWNSEND M - Last Filed: 07/07/17 18:42> History of Present Illness Date of admission: 06/04/17 09:09 Exam - Constitutional Vitals: Temp Pulse Resp BP Pulse Ox 97.3 F L 59 L 20 147/66 96 06/07/17 07:30 06/07/17 13:58 06/07/17 13:58 06/07/17 09:44 06/07/17 07:30 Results - Labs CBC & Chem 7: 06/05/17 06:42 06/05/17 06:42 Labs: Laboratory Last Values WBC 5.9 K/mm3 (4.5-11.0) 06/05/17 06:42 RBC 3.04 M/mm3 (3.65-5.03) L 06/05/17 06:42 Hgb 8.9 gm/dl (11.8-15.2) L 06/05/17 06:42 Hct 28.7 % (35.5-45.6) L 06/05/17 06:42 MCV 94 fl (84-94) 06/05/17 06:42 MCH 29 pg (28-32) 06/05/17 06:42 MCHC 31 % (32-34) L 06/05/17 06:42 RDW 19.6 % (13.2-15.2) H 06/05/17 06:42 Plt Count 112 K/mm3 (140-440) L 06/05/17 06:42 Lymph % (Auto) 14.4 % (13.4-35.0) 06/05/17 06:42 [place] % (Auto) 12.6 % (0.0-7.3) H 06/05/17 06:42 Eos % (Auto) 4.2 % (0.0-4.3) 06/05/17 06:42 Baso % (Auto) 1.7 % (0.0-1.8) 06/05/17 06:42 Lymph # 0.8 K/mm3 (1.2-5.4) L 06/05/17 06:42 [place] # 0.7 K/mm3 (0.0-0.8) 06/05/17 06:42 Eos # 0.2 K/mm3 (0.0-0.4) 06/05/17 06:42 Baso # 0.1 K/mm3 (0.0-0.1) 06/05/17 06:42 Seg Neutrophils % 67.1 % (40.0-70.0) 06/05/17 06:42 Seg Neutrophils # 4.0 K/mm3 (1.8-7.7) 06/05/17 06:42 PT 21.9 Sec. (12.2-14.9) H 06/04/17 07:06 INR 1.81 (0.87-1.13) H 06/04/17 07:06 APTT 42.5 Sec. (24.2-36.6) H 06/04/17 07:06 Sodium 138 mmol/L (137-145) 06/05/17 06:42 Potassium 4.2 mmol/L (3.6-5.0) 06/05/17 06:42 Chloride 98.4 mmol/L (98-107) 06/05/17 06:42 Carbon Dioxide 21 mmol/L (22-30) L 06/05/17 06:42 Anion Gap 23 mmol/L 06/05/17 06:42 BUN 47 mg/dL (9-20) H 06/05/17 06:42 Creatinine 9.2 mg/dL (0.8-1.5) H 06/05/17 06:42 Estimated GFR 7 ml/min 06/05/17 06:42 BUN/Creatinine Ratio 5 % 06/05/17 06:42 Glucose 108 mg/dL (75-100) H 06/05/17 06:42 POC Glucose 238 (70-105) H 06/07/17 11:37 Lactic Acid 1.90 mmol/L (0.7-2.0) 06/04/17 09:29 Calcium 8.0 mg/dL (8.4-10.2) L 06/05/17 06:42 Magnesium 1.90 mg/dL (1.7-2.3) 06/04/17 07:06 Total Bilirubin 1.40 mg/dL (0.1-1.2) H 06/05/17 06:42 Direct Bilirubin 0.8 mg/dL (0-0.2) H 06/05/17 06:42 Indirect Bilirubin 0.6 mg/dL 06/05/17 06:42 AST 64 units/L (5-40) H 06/05/17 06:42 ALT 56 units/L (7-56) 06/05/17 06:42 Alkaline Phosphatase 101 units/L (35-129) 06/05/17 06:42 Troponin T 0.159 ng/mL (0.00-0.029) H* D 06/04/17 19:13 NT-Pro-B Natriuret Pep > 58687 pg/mL (0-900) H 06/04/17 07:06 Total Protein 6.1 g/dL (6.3-8.2) L 06/05/17 06:42 Albumin 3.1 g/dL (3.9-5) L 06/05/17 06:42 Albumin/Globulin Ratio 1.0 % 06/05/17 06:42 Triglycerides 75 mg/dL (2-149) 06/04/17 07:06 Cholesterol 97 mg/dL (50-199) 06/04/17 07:06 LDL Cholesterol Direct 38 mg/dL (50-130) L 06/04/17 07:06 HDL Cholesterol 44 mg/dL (40-59) 06/04/17 07:06 Cholesterol/HDL Ratio 2.20 % 06/04/17 07:06 Lipase 47 units/L (13-60) 06/04/17 07:06 Blood Type A POSITIVE 06/04/17 07:06 Antibody Screen Negative 06/04/17 07:06
[2017-06-04] MEDS ORDERED: APRESOLINE IV PRN (09:43)
[2017-06-04] MEDS ORDERED: LASIX PO SCH (10:00)
[2017-06-04] MEDS ORDERED: COREG PO SCH (10:00)
[2017-06-04] MEDS ORDERED: NON-FORMULARY (Insulin Aspart [Novolog Flexpen] 10 UNITS) SQ SCH (10:00)
[2017-06-04] MEDS ORDERED: COZAAR PO SCH (10:00)
[2017-06-04] MEDS ORDERED: HEPARIN SUB-Q SCH (10:00)
[2017-06-04] MEDS ORDERED: ELIQUIS PO SCH (10:00)
[2017-06-04] MEDS ORDERED: SENSIPAR PO SCH (10:00)
[2017-06-04 10:23] LABS: Cholesterol 97 mg/dL (50-199); HDL Cholesterol 44 mg/dL (40-59); LDL Cholesterol,Direct 38 mg/dL (50-130); Triglycerides 75 mg/dL (2-149)
[2017-06-04] MEDS ORDERED: HEPARIN ONE (11:09)
[2017-06-04 11:35] LABS: Bilirubin,Direct 1.9 mg/dL (0-0.2); Bilirubin,Indirect 1.8 mg/dL; Bilirubin,Total 3.7 mg/dL (0.1-1.2)
[2017-06-04] MEDS ORDERED: D50W (25GM) Syringe IV PRN (12:24)
[2017-06-04] MEDS ORDERED: NACL 0.9% 100 ML IV PRN (12:32)
--- NOTE | 2017-06-04 12:35 | Consultation ---
History of Present Illness - Reason for Consult Consult date: 06/04/17 end stage renal disease Requesting physician: DAVIN OH - History of Present Illness This is a 72-year-old male with a history of end-stage renal disease, diabetes mellitus, hypertension and previous cerebrovascular accident and peripheral vascular disease s/p b/l BKA, initially admitted on 06/02/17 due to episode of unresponsiveness for several minutes while getting dialysis, pt also states that he had some lower abdominal pain, nausea and vomiting, when above episode happened. CT A/P showed evidence of chronic cholelithiasis, along with e/o increasing R pleural effusion. Renal consult was requested for management of ESRD and HD, pt was dialyzed on 06/03. Pt was discharged in the night of 06/03, then readmitted on 06/04 for same complaints. Awaiting GI consult, renal consult requested again for management of ESRD and HD. Past History Past Medical History: atrial fib, CAD, diabetes, dialysis, ESRD, hypertension, PVD Past Surgical History: Other (AV fistula placements right upper extremity, AICD in , bilateral below-knee amputations) Social history: denies: smoking, alcohol abuse, prescription drug abuse, IV drug use Family history: diabetes, hypertension Medications and Allergies Allergies Allergy/AdvReac Type Severity Reaction Status Date / Time No Known Allergies Allergy Verified 12/17/16 10:26 Home Medications Medication Instructions Recorded Confirmed Last Taken Type Carvedilol [Coreg] 25 mg PO BID 06/15/14 06/04/17 06/01/17 History Furosemide [Lasix TAB] 40 mg PO QDAY 06/02/17 06/04/17 06/01/17 History Insulin Aspart [NovoLOG Flexpen] 10 units SQ BID 06/02/17 06/04/17 06/01/17 History Losartan [Cozaar] 50 mg PO QDAY 06/02/17 06/04/17 06/01/17 History Simvastatin [Zocor TAB] 10 mg PO QHS 06/02/17 06/04/17 06/01/17 History Apixaban [Eliquis] 5 mg PO BID tablet 06/03/17 06/04/17 Unknown Rx Carvedilol [Coreg] 25 mg PO BID tablet 06/03/17 06/04/17 Unknown Rx Cinacalcet [Sensipar] 30 mg PO QDAY tablet 06/03/17 06/04/17 Unknown Rx Furosemide [Lasix TAB] 40 mg PO QDAY tablet 06/03/17 06/04/17 Unknown Rx Losartan [Cozaar] 50 mg PO QDAY tablet 06/03/17 06/04/17 Unknown Rx ALBUTEROL Inhaler [ProAir HFA 1 puff PO QDAY PRN 06/04/17 06/04/17 Unknown History Inhaler] ALBUTEROL NEB's [Proventil 0.083% 3 ml INHALATION TID 06/04/17 06/04/17 Unknown History NEBS] Tiotropium [place] [Spiriva] 1 puff PO QDAY 06/04/17 06/04/17 Unknown History Active Meds: Active Medications Acetaminophen (Tylenol) 650 mg PO Q4H PRN PRN Reason: Pain MILD(1-3)/Fever >100.5/DYE Bisacodyl (Dulcolax) 10 mg [place] QDAY PRN PRN Reason: Constipation unrelieved by MOM Dextrose (D50w (25gm) Syringe) 50 ml IV PRN PRN PRN Reason: Hypoglycemia Heparin Sodium (Porcine) (Heparin) 5,000 unit SUB-Q Q12HR GRACIE Last Admin: 06/04/17 11:27 Dose: 5,000 unit Hydralazine HCl (Apresoline) 20 mg IV Q4H PRN PRN Reason: Blood Pressure SBP>160 Dextrose/Sodium Chloride (D5/0.45ns) 1,000 mls @ 42 mls/hr IV DIRECT GRACIE Sodium Chloride (Nacl 0.9%) 100 mls @ 999 mls/hr IV CHAZ PRN PRN Reason: Hypotension Insulin Aspart (Novolog) 0 units SUB-Q AC GRACIE PRN Reason: Protocol Insulin Aspart (Novolog) 0 units SUB-Q QHS GRACIE PRN Reason: Protocol Review of Systems All systems: negative Constitutional: poor appetite Gastrointestinal: abdominal pain, nausea, vomiting Exam - Vital Signs Vital signs: Vital Signs Temp Pulse Resp BP Pulse Ox 98.3 F 73 19 181/72 100 06/04/17 03:59 06/04/17 03:59 06/04/17 03:59 06/04/17 03:59 06/04/17 03:59 - General Appearance General appearance: appears stated age, chronically ill EENT: ATNC, PERRL, mucous membranes moist Neck: Present: neck supple Respiratory: Clear to Ascultation Heart: regular, S1S2 Gastrointestinal: Present: normoactive bowel sounds Integumentary: no rash, other (b/l BKA ) Neurologic: no focal deficit, alert and oriented x3, strength 5/5, CN 3-12 intact Psychiatric: mood/affect appropriate, cooperative Results - Lab Results 06/04/17 07:06 06/04/17 07:06 Most recent lab results Calcium 8.9 mg/dL (8.4-10.2) 06/04/17 07:06 Magnesium 1.90 mg/dL (1.7-2.3) 06/04/17 07:06 Laboratory Tests 06/04/17 06/04/17 06/04/17 07:06 07:06 07:06 Lactic Acid 2.50 H* Calcium 8.9 Magnesium 1.90 Total Bilirubin 3.60 H Direct Bilirubin Indirect Bilirubin AST 152 H ALT 54 Alkaline Phosphatase 133 H Troponin T 0.158 H* NT-Pro-B Natriuret Pep > 81984 H Total Protein 7.4 Albumin 3.9 Albumin/Globulin Ratio 1.1 Triglycerides 75 Cholesterol 97 LDL Cholesterol Direct 38 L HDL Cholesterol 44 Cholesterol/HDL Ratio 2.20 Lipase 47 06/04/17 06/04/17 06/04/17 07:06 09:29 09:53 Lactic Acid 1.90 Calcium Magnesium Total Bilirubin Direct Bilirubin 1.9 H Indirect Bilirubin 1.8 AST ALT Alkaline Phosphatase Troponin T 0.086 H D NT-Pro-B Natriuret Pep Total Protein Albumin Albumin/Globulin Ratio Triglycerides Cholesterol LDL Cholesterol Direct HDL Cholesterol Cholesterol/HDL Ratio Lipase Assessment and Plan - Patient Problems (1) End stage renal disease Current Visit: No Status: Chronic Plan to address problem: cont HD on TTS schedule (2) Abdominal pain Current Visit: No Status: Acute Qualifiers: Abdominal location: lower abdomen, unspecified Qualified Code(s): R10.30 - Lower abdominal pain, unspecified Plan to address problem: follow GI recommendations (3) Chronic atrial fibrillation Current Visit: No Status: Acute Plan to address problem: currently rate controlled, cont A/c with apixaban (4) Diabetes mellitus Current Visit: No Status: Chronic Qualifiers: Diabetes mellitus type: type 2 Diabetes mellitus complication status: with skin complications Diabetes mellitus complication detail: with other skin complication Qualified Code(s): E10.628 - Type 1 diabetes mellitus with other skin complications Plan to address problem: glucose control as per primary attending (5) Hypertensive chronic kidney disease with stage 5 chronic kidney disease or end stage renal disease Current Visit: No Status: Acute Plan to address problem: BP uncontrolled, if it remains elevated after HD/UF will titrate up losartan
[2017-06-04] MEDS ORDERED: NORMODYNE IV PRN (12:41)
--- NOTE | 2017-06-04 12:53 | Consultation ---
History of Present Illness Consult date: 06/04/17 Reason for consult: gallstones Chief complaint: abdominal pain, n/v - History of present illness History of present illness: Pt is a 72 yo male with an extensive PMHx including ESRD on HD, PVD s/p b/l BKA , CVA, Afib on eliquis who presented to the hospital with abdominal pain for the last 1 month, constant, located in the lower abdomen. The patient was seen in the hospital yesterday and discharged after being worked up for unresponsiveness at HD. He also c/o abdominal pain at that time but CT scan was unremarkable for acute pathology and he was tolerating a diet. He states when he went home, the pain did not resolve. The patient states the pain is in the mid and lower abdomen and does not radiate. He has been having BMs every 2-3 days. + nausea and emesis at home for the last 1- 2 weeks - nonbilious and nonbloody. No f/c, cp, sob. Past History Past Medical History: atrial fib, CAD, diabetes, dialysis, ESRD, hypertension, PVD Past Surgical History: hernia repair (bilateral inguinal hernia), Other (AV fistula placements right upper extremity, AICD in , bilateral below- knee amputations) Social history: . denies: smoking, alcohol abuse, prescription drug abuse, IV drug use Family history: diabetes, hypertension Medications and Allergies Allergies Allergy/AdvReac Type Severity Reaction Status Date / Time No Known Allergies Allergy Verified 12/17/16 10:26 Home Medications Medication Instructions Recorded Confirmed Last Taken Type Carvedilol [Coreg] 25 mg PO BID 06/15/14 06/04/17 06/01/17 History Furosemide [Lasix TAB] 40 mg PO QDAY 06/02/17 06/04/17 06/01/17 History Insulin Aspart [NovoLOG Flexpen] 10 units SQ BID 06/02/17 06/04/17 06/01/17 History Losartan [Cozaar] 50 mg PO QDAY 06/02/17 06/04/17 06/01/17 History Simvastatin [Zocor TAB] 10 mg PO QHS 06/02/17 06/04/17 06/01/17 History Apixaban [Eliquis] 5 mg PO BID tablet 06/03/17 06/04/17 Unknown Rx Carvedilol [Coreg] 25 mg PO BID tablet 06/03/17 06/04/17 Unknown Rx Cinacalcet [Sensipar] 30 mg PO QDAY tablet 06/03/17 06/04/17 Unknown Rx Furosemide [Lasix TAB] 40 mg PO QDAY tablet 06/03/17 06/04/17 Unknown Rx Losartan [Cozaar] 50 mg PO QDAY tablet 06/03/17 06/04/17 Unknown Rx ALBUTEROL Inhaler [ProAir HFA 1 puff PO QDAY PRN 06/04/17 06/04/17 Unknown History Inhaler] ALBUTEROL NEB's [Proventil 0.083% 3 ml INHALATION TID 06/04/17 06/04/17 Unknown History NEBS] Tiotropium Anthony [Spiriva] 1 puff PO QDAY 06/04/17 06/04/17 Unknown History Active Meds: Active Medications Acetaminophen (Tylenol) 650 mg PO Q4H PRN PRN Reason: Pain MILD(1-3)/Fever >100.5/DYE Albuterol (Proventil) 2.5 mg IH TID GRACIE Bisacodyl (Dulcolax) 10 mg NV QDAY PRN PRN Reason: Constipation unrelieved by MOM Cinacalcet (Sensipar) 30 mg PO QDAY [facility] Dextrose (D50w (25gm) Syringe) 50 ml IV PRN PRN PRN Reason: Hypoglycemia Heparin Sodium (Porcine) (Heparin) 5,000 unit SUB-Q Q12HR [facility] Last Admin: 06/04/17 11:27 Dose: 5,000 unit Hydralazine HCl (Apresoline) 20 mg IV Q4H PRN PRN Reason: Blood Pressure SBP>160 Sodium Chloride (Nacl 0.9%) 100 mls @ 999 mls/hr IV CHAZ PRN PRN Reason: Hypotension Sodium Chloride (Nacl 0.9% 1000 Ml) 1,000 mls @ 75 mls/hr IV DIRECT GRACIE Insulin Aspart (Novolog) 0 units SUB-Q AC GRACIE PRN Reason: Protocol Insulin Aspart (Novolog) 0 units SUB-Q QHS GRACIE PRN Reason: Protocol Labetalol HCl (Normodyne) 20 mg IV Q4H PRN PRN Reason: for BP >160/100 Tiotropium Anthony (Spiriva) 1 puff IH QDAY [facility] Review of Systems All systems: negative (see hpi) Exam Vital Signs Temp Pulse Resp BP Pulse Ox 98.3 F 73 19 181/72 100 06/04/17 03:59 06/04/17 03:59 06/04/17 03:59 06/04/17 03:59 06/04/17 03:59 Narrative exam: Gen: AAOx3. NAD CV: S1, S2+ Resp: No audible wheezes Abd: soft, NT, + TTP at umbilicus, +small umbilical hernia. No r/r/g. well healed surgical scars Ext: b/l LE BKA. RUE AVF with + thrill Results - Labs 06/04/17 07:06 06/04/17 07:06 Abnormal lab results 06/04/17 06/04/17 06/04/17 Range/Units 07:06 07:06 07:06 RBC 3.33 L (3.65-5.03) M/mm3 Hgb 10.1 L (11.8-15.2) gm/dl Hct 31.6 L (35.5-45.6) % MCV 95 H (84-94) fl RDW 19.6 H (13.2-15.2) % Plt Count 97 L (140-440) K/mm3 Lymph % (Auto) 9.8 L (13.4-35.0) % Park % (Auto) 12.0 H (0.0-7.3) % Lymph # 0.8 L (1.2-5.4) K/mm3 Park # 1.0 H (0.0-0.8) K/mm3 Seg Neutrophils % 75.0 H (40.0-70.0) % PT 21.9 H (12.2-14.9) Sec. INR 1.81 H (0.87-1.13) APTT 42.5 H (24.2-36.6) Sec. Chloride 92.2 L (98-107) mmol/L BUN 36 H (9-20) mg/dL Creatinine 7.8 H (0.8-1.5) mg/dL Glucose 117 H (75-100) mg/dL Lactic Acid (0.7-2.0) mmol/L Total Bilirubin 3.60 H (0.1-1.2) mg/dL Direct Bilirubin (0-0.2) mg/dL AST 152 H (5-40) units/L Alkaline Phosphatase 133 H (35-129) units/L Troponin T (0.00-0.029) ng/mL NT-Pro-B Natriuret Pep (0-900) pg/mL LDL Cholesterol Direct (50-130) mg/dL 06/04/17 06/04/17 06/04/17 Range/Units 07:06 07:06 07:06 RBC (3.65-5.03) M/mm3 Hgb (11.8-15.2) gm/dl Hct (35.5-45.6) % MCV (84-94) fl RDW (13.2-15.2) % Plt Count (140-440) K/mm3 Lymph % (Auto) (13.4-35.0) % Park % (Auto) (0.0-7.3) % Lymph # (1.2-5.4) K/mm3 Park # (0.0-0.8) K/mm3 Seg Neutrophils % (40.0-70.0) % PT (12.2-14.9) Sec. INR (0.87-1.13) APTT (24.2-36.6) Sec. Chloride (98-107) mmol/L BUN (9-20) mg/dL Creatinine (0.8-1.5) mg/dL Glucose (75-100) mg/dL Lactic Acid 2.50 H* (0.7-2.0) mmol/L Total Bilirubin 3.70 H (0.1-1.2) mg/dL Direct Bilirubin 1.9 H (0-0.2) mg/dL AST (5-40) units/L Alkaline Phosphatase (35-129) units/L Troponin T 0.158 H* (0.00-0.029) ng/mL NT-Pro-B Natriuret Pep > 44368 H (0-900) pg/mL LDL Cholesterol Direct 38 L (50-130) mg/dL 06/04/17 Range/Units 09:53 RBC (3.65-5.03) M/mm3 Hgb (11.8-15.2) gm/dl Hct (35.5-45.6) % MCV (84-94) fl RDW (13.2-15.2) % Plt Count (140-440) K/mm3 Lymph % (Auto) (13.4-35.0) % Park % (Auto) (0.0-7.3) % Lymph # (1.2-5.4) K/mm3 Park # (0.0-0.8) K/mm3 Seg Neutrophils % (40.0-70.0) % PT (12.2-14.9) Sec. INR (0.87-1.13) APTT (24.2-36.6) Sec. Chloride (98-107) mmol/L BUN (9-20) mg/dL Creatinine (0.8-1.5) mg/dL Glucose (75-100) mg/dL Lactic Acid (0.7-2.0) mmol/L Total Bilirubin (0.1-1.2) mg/dL Direct Bilirubin (0-0.2) mg/dL AST (5-40) units/L Alkaline Phosphatase (35-129) units/L Troponin T 0.086 H D (0.00-0.029) ng/mL NT-Pro-B Natriuret Pep (0-900) pg/mL LDL Cholesterol Direct (50-130) mg/dL Diabetes panel 06/04/17 06/04/17 Range/Units 07:06 07:06 Sodium 137 (137-145) mmol/L Potassium 4.5 (3.6-5.0) mmol/L Chloride 92.2 L (98-107) mmol/L Carbon Dioxide 22 (22-30) mmol/L BUN 36 H (9-20) mg/dL Creatinine 7.8 H (0.8-1.5) mg/dL Glucose 117 H (75-100) mg/dL Calcium 8.9 (8.4-10.2) mg/dL AST 152 H (5-40) units/L ALT 54 (7-56) units/L Alkaline Phosphatase 133 H (35-129) units/L Total Protein 7.4 (6.3-8.2) g/dL Albumin 3.9 (3.9-5) g/dL Triglycerides 75 (2-149) mg/dL HDL Cholesterol 44 (40-59) mg/dL Calcium panel 06/04/17 Range/Units 07:06 Calcium 8.9 (8.4-10.2) mg/dL Albumin 3.9 (3.9-5) g/dL Pituitary panel 06/04/17 Range/Units 07:06 Sodium 137 (137-145) mmol/L Potassium 4.5 (3.6-5.0) mmol/L Chloride 92.2 L (98-107) mmol/L Carbon Dioxide 22 (22-30) mmol/L BUN 36 H (9-20) mg/dL Creatinine 7.8 H (0.8-1.5) mg/dL Glucose 117 H (75-100) mg/dL Calcium 8.9 (8.4-10.2) mg/dL Adrenal panel 06/04/17 06/04/17 Range/Units 07:06 07:06 Sodium 137 (137-145) mmol/L Potassium 4.5 (3.6-5.0) mmol/L Chloride 92.2 L (98-107) mmol/L Carbon Dioxide 22 (22-30) mmol/L BUN 36 H (9-20) mg/dL Creatinine 7.8 H (0.8-1.5) mg/dL Glucose 117 H (75-100) mg/dL Calcium 8.9 (8.4-10.2) mg/dL Total Bilirubin 3.60 H 3.70 H (0.1-1.2) mg/dL AST 152 H (5-40) units/L ALT 54 (7-56) units/L Alkaline Phosphatase 133 H (35-129) units/L Total Protein 7.4 (6.3-8.2) g/dL Albumin 3.9 (3.9-5) g/dL - Imaging CT scan - abdomen: report reviewed, image reviewed (1. increasing right pleural eddusion and right lower lobe atelectasis. 2. cholelithiasis. 3. bilateral stable renal cysts, pancreatic atrophy and severe diffuse vascular calcifications are stable. Minimal ascites) CT scan - pelvis: report reviewed, image reviewed US - abdomen: report reviewed, image reviewed (cholelithiasis, no signs of acute cholecystitis) Assessment and Plan 72 yo M with 1. Abd pain, n/v 2. cholelithiasis 3. transaminitis, elevated bilirubin 4. ESRD on HD 5. PVD, mesenteric vascular calcifications 6. CAD with elevated troponins 7. Afib on eliquis 8. DM 9. fat containing umbilical hernia Plan: 1. no evidence of acute cholecystitis on labs or imaging 2. HIDA scan ordered by 1' service 3. GI consult pending 4. elevated bilirubin - ?r/o choledocolothiasis, may need MRCP. Has PPM - patient does not know if this is MRI safe 5. trend labs 6. c/w abx 7. pain and nausea control 8. rec cards c/s for elevated troponin 9. limit IVF 10. NPO 11. HD per nephro 12. GI ppx 13. hold eliquis for now
[2017-06-04] MEDS ORDERED: D5/0.45NS 1,000 ML IV SCH (13:00)
--- NOTE | 2017-06-04 13:29 | Emergency Department Report ---
ED Abdominal Pain HPI - General Chief Complaint: Abdominal Pain Stated Complaint: VALDO,ABD,N&V Time Seen by Provider: 06/04/17 06:28 Source: patient, EMS Mode of arrival: Stretcher Limitations: Physical Limitation - History of Present Illness Initial Comments: 72-year-old male with a history of end-stage renal disease, diabetes mellitus, hypertension and previous cerebrovascular accident and peripheral vascular disease s/p b/l BKA, initially admitted on 06/02/17 due to episode of unresponsiveness for several minutes while getting dialysis, pt also states that he had some lower abdominal pain, nausea and vomiting, when above episode happened. CT A/P showed evidence of chronic cholelithiasis, along with e/o increasing R pleural effusion. Renal consult was requested for management of ESRD and HD, pt was dialyzed on 06/03. Pt was discharged in the night of 06/03, then readmitted on 06/04 for same complaints. Awaiting GI consult, renal consult requested again for management of ESRD and HD. The patient returns again after the above hospitalization stating that he still has abdominal pain and now evidence worse. States the abdominal pain involves his upper abdomen and his back. It's been present for 3 days. He is unaware of his gallstones. He doesn't refer fever or chills. MD Complaint: abdominal pain Location: LUQ, RUQ Radiation: back Migration to: no migration Severity: moderate Severity scale (0 -10): 6 Quality: aching Consistency: constant Improves With: nothing Worsens With: nothing Context: other (gallstones) Associated Symptoms: denies other symptoms - Related Data Home Medications Medication Instructions Recorded Confirmed Last Taken Carvedilol [Coreg] 25 mg PO BID 06/15/14 06/04/17 06/01/17 Furosemide [Lasix TAB] 40 mg PO QDAY 06/02/17 06/04/17 06/01/17 Insulin Aspart [NovoLOG Flexpen] 10 units SQ BID 06/02/17 06/04/17 06/01/17 Losartan [Cozaar] 50 mg PO QDAY 06/02/17 06/04/17 06/01/17 Simvastatin [Zocor TAB] 10 mg PO QHS 06/02/17 06/04/17 06/01/17 ALBUTEROL Inhaler [ProAir HFA 1 puff PO QDAY PRN 06/04/17 06/04/17 Unknown Inhaler] ALBUTEROL NEB's [Proventil 0.083% 3 ml INHALATION TID 06/04/17 06/04/17 Unknown NEBS] Tiotropium [place] [Spiriva] 1 puff PO QDAY 06/04/17 06/04/17 Unknown Previous Rx's Medication Instructions Recorded Last Taken Type Apixaban [Eliquis] 5 mg PO BID tablet 06/03/17 Unknown Rx Carvedilol [Coreg] 25 mg PO BID tablet 06/03/17 Unknown Rx Cinacalcet [Sensipar] 30 mg PO QDAY tablet 06/03/17 Unknown Rx Furosemide [Lasix TAB] 40 mg PO QDAY tablet 06/03/17 Unknown Rx Losartan [Cozaar] 50 mg PO QDAY tablet 06/03/17 Unknown Rx Allergies Allergy/AdvReac Type Severity Reaction Status Date / Time No Known Allergies Allergy Verified 12/17/16 10:26 ED Review of Systems ROS: Stated complaint: VALDO,ABD,N&V Other details as noted in HPI Constitutional: denies: chills, fever Eyes: denies: eye pain, eye discharge, vision change ENT: denies: ear pain, throat pain Respiratory: denies: cough, shortness of breath, wheezing Cardiovascular: denies: chest pain, palpitations Endocrine: no symptoms reported Gastrointestinal: abdominal pain, nausea. denies: diarrhea Genitourinary: denies: urgency, dysuria Musculoskeletal: back pain. denies: joint swelling, arthralgia Skin: denies: rash, lesions Neurological: denies: headache, weakness, paresthesias Psychiatric: denies: anxiety, depression Hematological/Lymphatic: denies: easy bleeding, easy bruising ED Past Medical Hx - Past Medical History Previous Medical History?: Yes Hx Hypertension: Yes 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, expressive dysphasia) Hx Heart Attack/AMI: Yes Hx Congestive Heart Failure: Yes Hx Diabetes: Yes Hx GERD: Yes (hospitalized for reflux 07/08/14) Hx Renal Disease: Yes (dialysis / / THU) Hx Arthritis: Yes Hx Asthma: Yes Hx COPD: Yes Hx HIV: No Additional medical history: Tricuspid and mitral regurgitation - Surgical History Past Surgical History?: Yes Hx Open Heart Surgery: No Hx Internal Defibrillator: Yes (2004, 2013) Additional Surgical History: bilateral BKA. FISTULA RIGHT FOREARM. HERNIA REPAIR - Social History Smoking Status: Former Smoker - Medications Home Medications: Home Medications Medication Instructions Recorded Confirmed Last Taken Type Carvedilol [Coreg] 25 mg PO BID 06/15/14 06/04/17 06/01/17 History Furosemide [Lasix TAB] 40 mg PO QDAY 06/02/17 06/04/17 06/01/17 History Insulin Aspart [NovoLOG Flexpen] 10 units SQ BID 06/02/17 06/04/17 06/01/17 History Losartan [Cozaar] 50 mg PO QDAY 06/02/17 06/04/17 06/01/17 History Simvastatin [Zocor TAB] 10 mg PO QHS 06/02/17 06/04/17 06/01/17 History Apixaban [Eliquis] 5 mg PO BID tablet 06/03/17 06/04/17 Unknown Rx Carvedilol [Coreg] 25 mg PO BID tablet 06/03/17 06/04/17 Unknown Rx Cinacalcet [Sensipar] 30 mg PO QDAY tablet 06/03/17 06/04/17 Unknown Rx Furosemide [Lasix TAB] 40 mg PO QDAY tablet 06/03/17 06/04/17 Unknown Rx Losartan [Cozaar] 50 mg PO QDAY tablet 06/03/17 06/04/17 Unknown Rx ALBUTEROL Inhaler [ProAir HFA 1 puff PO QDAY PRN 06/04/17 06/04/17 Unknown History Inhaler] ALBUTEROL NEB's [Proventil 0.083% 3 ml INHALATION TID 06/04/17 06/04/17 Unknown History NEBS] Tiotropium [place] [Spiriva] 1 puff PO QDAY 06/04/17 06/04/17 Unknown History ED Physical Exam - General Limitations: Physical Limitation General appearance: alert, in no apparent distress - Head Head exam: Present: atraumatic, normocephalic - Eye Eye exam: Present: normal appearance, PERRL, EOMI. Absent: scleral icterus - ENT ENT exam: Present: mucous membranes moist - Neck Neck exam: Present: normal inspection - Respiratory Respiratory exam: Present: normal lung sounds bilaterally. Absent: respiratory distress - Cardiovascular Cardiovascular Exam: Present: regular rate, normal rhythm. Absent: systolic murmur, diastolic murmur, rubs, gallop - GI/Abdominal GI/Abdominal exam: Present: soft, tenderness (some right upper quadrant discomfort to palpation), normal bowel sounds. Absent: distended, guarding, rebound, rigid, organomegaly, mass, bruit, pulsatile mass, hernia - Rectal Rectal exam: Present: deferred - Extremities Exam Extremities exam: Present: normal inspection - Back Exam Back exam: Present: normal inspection - Neurological Exam Neurological exam: Present: alert, oriented X3, CN II-XII intact. Absent: motor sensory deficit - Psychiatric Psychiatric exam: Present: normal affect, normal mood - Skin Skin exam: Present: warm, dry, intact, normal color. Absent: rash ED Course Vital Signs 06/04/17 06/04/17 06/04/17 03:59 06:15 06:21 Temperature 98.3 F Pulse Rate 73 73 Respiratory 19 19 18 Rate Blood Pressure 181/72 184/84 Blood Pressure [Left] O2 Sat by Pulse 100 80 L 98 Oximetry 06/04/17 06/04/17 06/04/17 06:30 06:45 07:01 Temperature Pulse Rate 73 74 73 Respiratory 18 23 14 Rate Blood Pressure 169/64 169/64 169/64 Blood Pressure [Left] O2 Sat by Pulse 84 97 97 Oximetry 06/04/17 06/04/17 07:15 07:22 Temperature 99.1 F Pulse Rate 73 73 Respiratory 17 20 Rate Blood Pressure 169/64 Blood Pressure 183/84 [Left] O2 Sat by Pulse 96 98 Oximetry ED Medical Decision Making - Lab Data Result diagrams: 06/04/17 07:06 06/04/17 07:06 Laboratory Results - last 24 hr 06/04/17 06/04/17 06/04/17 07:06 07:06 07:06 WBC 8.1 RBC 3.33 L Hgb 10.1 L Hct 31.6 L MCV 95 H MCH 30 MCHC 32 RDW 19.6 H Plt Count 97 L Lymph % (Auto) 9.8 L O'Brien % (Auto) 12.0 H Eos % (Auto) 1.8 Baso % (Auto) 1.4 Lymph # 0.8 L O'Brien # 1.0 H Eos # 0.1 Baso # 0.1 Seg Neutrophils % 75.0 H Seg Neutrophils # 6.1 PT 21.9 H INR 1.81 H APTT 42.5 H Sodium 137 Potassium 4.5 Chloride 92.2 L Carbon Dioxide 22 Anion Gap 27 BUN 36 H Creatinine 7.8 H Estimated GFR 8 BUN/Creatinine Ratio 5 Glucose 117 H POC Glucose Lactic Acid Calcium 8.9 Magnesium Total Bilirubin 3.60 H Direct Bilirubin Indirect Bilirubin AST 152 H ALT 54 Alkaline Phosphatase 133 H Troponin T NT-Pro-B Natriuret Pep Total Protein 7.4 Albumin 3.9 Albumin/Globulin Ratio 1.1 Triglycerides Cholesterol LDL Cholesterol Direct HDL Cholesterol Cholesterol/HDL Ratio Lipase 47 Blood Type Antibody Screen 06/04/17 06/04/17 06/04/17 07:06 07:06 07:06 WBC RBC Hgb Hct MCV MCH MCHC RDW Plt Count Lymph % (Auto) O'Brien % (Auto) Eos % (Auto) Baso % (Auto) Lymph # O'Brien # Eos # Baso # Seg Neutrophils % Seg Neutrophils # PT INR APTT Sodium Potassium Chloride Carbon Dioxide Anion Gap BUN Creatinine Estimated GFR BUN/Creatinine Ratio Glucose POC Glucose Lactic Acid 2.50 H* Calcium Magnesium 1.90 Total Bilirubin Direct Bilirubin Indirect Bilirubin AST ALT Alkaline Phosphatase Troponin T 0.158 H* NT-Pro-B Natriuret Pep > 23771 H Total Protein Albumin Albumin/Globulin Ratio Triglycerides 75 Cholesterol 97 LDL Cholesterol Direct 38 L HDL Cholesterol 44 Cholesterol/HDL Ratio 2.20 Lipase Blood Type A POSITIVE Antibody Screen Negative 06/04/17 06/04/17 06/04/17 07:06 09:29 09:53 WBC RBC Hgb Hct MCV MCH MCHC RDW Plt Count Lymph % (Auto) O'Brien % (Auto) Eos % (Auto) Baso % (Auto) Lymph # O'Brien # Eos # Baso # Seg Neutrophils % Seg Neutrophils # PT INR APTT Sodium Potassium Chloride Carbon Dioxide Anion Gap BUN Creatinine Estimated GFR BUN/Creatinine Ratio Glucose POC Glucose Lactic Acid 1.90 Calcium Magnesium Total Bilirubin 3.70 H Direct Bilirubin 1.9 H Indirect Bilirubin 1.8 AST ALT Alkaline Phosphatase Troponin T 0.086 H D NT-Pro-B Natriuret Pep Total Protein Albumin Albumin/Globulin Ratio Triglycerides Cholesterol LDL Cholesterol Direct HDL Cholesterol Cholesterol/HDL Ratio Lipase Blood Type Antibody Screen 06/04/17 11:38 WBC RBC Hgb Hct MCV MCH MCHC RDW Plt Count Lymph % (Auto) O'Brien % (Auto) Eos % (Auto) Baso % (Auto) Lymph # O'Brien # Eos # Baso # Seg Neutrophils % Seg Neutrophils # PT INR APTT Sodium Potassium Chloride Carbon Dioxide Anion Gap BUN Creatinine Estimated GFR BUN/Creatinine Ratio Glucose POC Glucose 103 Lactic Acid Calcium Magnesium Total Bilirubin Direct Bilirubin Indirect Bilirubin AST ALT Alkaline Phosphatase Troponin T NT-Pro-B Natriuret Pep Total Protein Albumin Albumin/Globulin Ratio Triglycerides Cholesterol LDL Cholesterol Direct HDL Cholesterol Cholesterol/HDL Ratio Lipase Blood Type Antibody Screen - EKG Data -: EKG Interpreted by Me EKG shows normal: sinus rhythm Rate: normal - EKG Data Interpretation: LVH, other (ST depression V through V6 as well as mildly so in the inferior leads and even.) - Radiology Data Radiology results: report reviewed Right pleural effusion moderately large venous congestion consistent with CHF on chest x-ray Gallstones and no evidence of cholecystitis on ultrasound Critical care attestation.: If time is entered above; I have spent that time in minutes in the direct care of this critically ill patient, excluding procedure time. ED Disposition Clinical Impression: Biliary colic, End stage renal disease on dialysis, Elevated troponin, Recurrent right pleural effusion Hypertension Qualifiers: Hypertension type: unspecified Qualified Code(s): I10 - Essential (primary) hypertension Congestive heart failure Qualifiers: Congestive heart failure type: unspecified congestive heart failure type Congestive heart failure chronicity: unspecified congestive heart failure chronicity Qualified Code(s): I50.9 - Heart failure, unspecified Disposition: 09 OP ADMIT IP TO THIS HOSP Is pt being admited?: Yes Does the pt Need Aspirin: Yes Condition: Stable Time of Disposition: 13:46
[2017-06-04] MEDS: PROVENTIL IH SCH ×2 (14:00→20:34)
[2017-06-04] MEDS ORDERED: NACL 0.9% 1000 ML 1,000 ML IV SCH (14:00)
[2017-06-04] MEDS: BABY ASPIRIN PO SCH (14:00)
[2017-06-04] MEDS: SPIRIVA IH SCH (15:00)
[2017-06-04] MEDS ORDERED: WATER FOR INJ (PF) 10 ML ONE (15:29)
[2017-06-04] MEDS ORDERED: KINEVAC IV ONE ×2 (15:29→15:30)
[2017-06-04] MEDS ORDERED: WATER FOR INJ (PF) IV ONE (15:31)
--- NOTE | 2017-06-04 15:58 | Event Note ---
Date: 06/04/17 Consult received. patient in nuclear medicine at the time of rounds. Will follow-up in the morning. Full consult note/recommendations to follow.
--- NOTE | 2017-06-04 16:48 | Nuclear Medicine Report ---
NUCLEAR MEDICINE HEPATOBILIARY SCAN: 06/04/17 CLINICAL: Right upper quadrant abdominal pain. TECHNIQUE: 5.0 mCi technetium 99m Choletec was injected intravenously. Serial images were obtained up to 60 minutes. 1.36 echograms of Kinevac was injected intravenously been slow infusion at sixty minutes. A gallbladder ejection fraction was measured. FINDINGS: Normal activity in the liver, bile ducts and small bowel. Normal gallbladder activity is apparent at ten minutes . However, abnormal gallbladder ejection fraction of 36%. IMPRESSION: No acute cholecystitis. However, abnormal gallbladder ejection fraction consistent with gallbladder dyskinesis.
[2017-06-04] MEDS: NOVOLOG SUB-Q SCH (17:05)
[2017-06-04] MEDS: PEPCID IV SCH (17:06)
[2017-06-04] MEDS ORDERED: NOVOLOG SUB-Q SCH (22:00)
[2017-06-04] MEDS ORDERED: LOVENOX SUB-Q SCH ×2 (22:00)
[2017-06-04] MEDS ORDERED: NON-FORMULARY (Simvastatin 10 MG) PO SCH (22:00)
[2017-06-05] MEDS: PEPCID IV SCH ×2 (03:46→15:30)
[2017-06-05] MEDS ORDERED: D50W (25GM) Vial 50 ML IV ONE (04:38)
[2017-06-05] MEDS ORDERED: DILAUDID IV ONE (05:00)
[2017-06-05] MEDS: NOVOLOG SUB-Q SCH ×3 (07:00→17:15)
[2017-06-05 07:14] LABS: Basophils % (Auto) 1.7 % (0.0-1.8); Eosinophils % (Auto) 4.2 % (0.0-4.3); Hematocrit 28.7 % (35.5-45.6); Hemoglobin 8.9 gm/dl (11.8-15.2); Mean Corpuscular HGB Conc 31 % (32-34); Mean Corpuscular Hemoglobin 29 pg (28-32); Mean Corpuscular Volume 94 fl (84-94); Platelet Count 112 K/mm3 (140-440); Red Blood Count 3.04 M/mm3 (3.65-5.03); Red Cell Distribution Width 19.6 % (13.2-15.2); White Blood Count 5.9 K/mm3 (4.5-11.0)
[2017-06-05 07:29] LABS: Albumin 3.1 g/dL (3.9-5); Bilirubin,Direct 0.8 mg/dL (0-0.2); Bilirubin,Indirect 0.6 mg/dL; Bilirubin,Total 1.4 mg/dL (0.1-1.2); Chloride 98.4 mmol/L (98-107); Potassium 4.2 mmol/L (3.6-5.0); Total Protein 6.1 g/dL (6.3-8.2)
[2017-06-05] MEDS ORDERED: LEXISCAN IV ONE ×2 (09:30)
[2017-06-05] MEDS: SPIRIVA IH SCH (10:00)
[2017-06-05] MEDS: BABY ASPIRIN PO SCH (10:00)
[2017-06-05] MEDS ORDERED: PROTONIX IV SCH (10:00)
[2017-06-05] MEDS: SENSIPAR PO SCH (10:00)
--- NOTE | 2017-06-05 10:32 | Event Note ---
Date: 06/05/17 Patient off of the floor for stress test. Full consult/recommendations to follow when pt is available.
--- NOTE | 2017-06-05 12:24 | Progress Note ---
Assessment and Plan 72 yo M with 1. Abd pain, n/v - improved 2. cholelithiasis 3. transaminitis, elevated bilirubin 4. ESRD on HD 5. PVD, mesenteric vascular calcifications 6. CAD with elevated troponins 7. Afib on eliquis 8. DM 9. fat containing umbilical hernia Plan: 1. no evidence of acute cholecystitis on labs or imaging, HIDA scan with EF shows borderline EF, no cholecystitis 2. start clear liquids diet -> may adv as tolerated 3. GI consult pending 4. elevated bilirubin - trending down 5. abx per 1' team 6. pain and nausea control 7. cards on board, troponin trending up, stress test done this am - results pending 8. limit IVF 9. HD per nephro 10. GI ppx 11. no surgical intervention planned for GB at this time 12. recommend vascular surgery eval for mesenteric calcifications, which could be a cause for abdominal pain. D/W Dr. Johnson Subjective Date of service: 06/05/17 Narrative: Pt seen and examined. No complaints. Pain is improved. He has not had nausea or emesis. He is hungry and asking for food. No f/c Objective Vital Signs - 12hr 06/05/17 06/05/17 06/05/17 04:24 05:00 05:01 Temperature 98.4 F Pulse Rate 62 Respiratory 18 18 Rate Respiratory 20 Rate [Right Upper Abdomen] Blood Pressure 158/63 Blood Pressure [Left] O2 Sat by Pulse 95 95 Oximetry 06/05/17 06/05/17 06/05/17 05:17 07:16 07:17 Temperature 98.4 F Pulse Rate 60 60 Respiratory 18 20 Rate Respiratory Rate [Right Upper Abdomen] Blood Pressure 163/64 Blood Pressure [Left] O2 Sat by Pulse 100 95 Oximetry 06/05/17 06/05/17 11:00 11:01 Temperature 97.3 F L Pulse Rate 59 L 62 Respiratory 18 Rate Respiratory Rate [Right Upper Abdomen] Blood Pressure 155/65 Blood Pressure 155/65 [Left] O2 Sat by Pulse 100 100 Oximetry - General physical appearance Narrative Exam: Gen: Awake and alert. NAD Abd: soft, ND. NO RUQ TTP. mild ttp near umbilicus. No r/r/g - Labs 06/05/17 06:42 06/05/17 06:42 Diabetes panel 06/05/17 Range/Units 06:42 Sodium 138 (137-145) mmol/L Potassium 4.2 (3.6-5.0) mmol/L Chloride 98.4 (98-107) mmol/L Carbon Dioxide 21 L (22-30) mmol/L BUN 47 H (9-20) mg/dL Creatinine 9.2 H (0.8-1.5) mg/dL Glucose 108 H (75-100) mg/dL Calcium 8.0 L (8.4-10.2) mg/dL AST 64 H (5-40) units/L ALT 56 (7-56) units/L Alkaline Phosphatase 101 (35-129) units/L Total Protein 6.1 L (6.3-8.2) g/dL Albumin 3.1 L (3.9-5) g/dL Calcium panel 06/05/17 Range/Units 06:42 Calcium 8.0 L (8.4-10.2) mg/dL Albumin 3.1 L (3.9-5) g/dL Pituitary panel 06/05/17 Range/Units 06:42 Sodium 138 (137-145) mmol/L Potassium 4.2 (3.6-5.0) mmol/L Chloride 98.4 (98-107) mmol/L Carbon Dioxide 21 L (22-30) mmol/L BUN 47 H (9-20) mg/dL Creatinine 9.2 H (0.8-1.5) mg/dL Glucose 108 H (75-100) mg/dL Calcium 8.0 L (8.4-10.2) mg/dL Adrenal panel 06/05/17 Range/Units 06:42 Sodium 138 (137-145) mmol/L Potassium 4.2 (3.6-5.0) mmol/L Chloride 98.4 (98-107) mmol/L Carbon Dioxide 21 L (22-30) mmol/L BUN 47 H (9-20) mg/dL Creatinine 9.2 H (0.8-1.5) mg/dL Glucose 108 H (75-100) mg/dL Calcium 8.0 L (8.4-10.2) mg/dL Total Bilirubin 1.40 H (0.1-1.2) mg/dL AST 64 H (5-40) units/L ALT 56 (7-56) units/L Alkaline Phosphatase 101 (35-129) units/L Total Protein 6.1 L (6.3-8.2) g/dL Albumin 3.1 L (3.9-5) g/dL
--- NOTE | 2017-06-05 12:36 | Treadmill Report ---
NUCLEAR STRESS TEST The patient is brought to the Cardiology lab. Nuclear stress test is performed by administering Lexiscan. The patient tolerated the procedure well. Post-stress images reveal dilated left ventricle with significant global hypokinesis, more so in the inferior and lateral sosa. Resting images show mostly fixed inferolateral defect with mild reversibility. Calculated ejection fraction is noted to be 30%. IMPRESSION: 1. Abnormal nuclear scan. 2. Mostly fixed inferolateral defect is noted in both the rest and exercise scans with mild reversibility during rest suggestive of a previous inferolateral TX with jordy-infarction ischemia. 3. Left ventricular dilation and significant left ventricular systolic dysfunction are noted. Calculated ejection fraction is about 30%. We may need to confirm the left ventricular function with another modality such as echocardiogram. 4. Suggest clinical correlation. JOB# [id number] CLAIRE/FILEMON
--- NOTE | 2017-06-05 12:46 | Consultation ---
History of Present Illness Consult date: 06/05/17 Consult reason: pre op evaluation History of present illness: 72 year old male known to have non-ischemic cardiomyopathy, LVEF 25% presenting with nausea, abdominal pain and 'spitting clear liquids'. Patient denies chest pain or shortness of breath. Patient diagnosed with cholelithiasis, but no evidence of cholecystitis. Surgery requesting vascular evaluation to exclude mesenteric ischemia. Past History Past Medical History: atrial fib, CAD, ESRD, hypertension, hyperlipidemia, PVD Past Surgical History: Other (AV fistula placements right upper extremity, AICD in , bilateral below-knee amputations) Social history: denies: smoking, alcohol abuse Family history: diabetes, hypertension Medications and Allergies Allergies Allergy/AdvReac Type Severity Reaction Status Date / Time No Known Allergies Allergy Verified 12/17/16 10:26 Home Medications Medication Instructions Recorded Confirmed Last Taken Type Carvedilol [Coreg] 25 mg PO BID 06/15/14 06/04/17 06/01/17 History Furosemide [Lasix TAB] 40 mg PO QDAY 06/02/17 06/04/17 06/01/17 History Insulin Aspart [NovoLOG Flexpen] 10 units SQ BID 06/02/17 06/04/17 06/01/17 History Losartan [Cozaar] 50 mg PO QDAY 06/02/17 06/04/17 06/01/17 History Simvastatin [Zocor TAB] 10 mg PO QHS 06/02/17 06/04/17 06/01/17 History Apixaban [Eliquis] 5 mg PO BID tablet 06/03/17 06/04/17 Unknown Rx Carvedilol [Coreg] 25 mg PO BID tablet 06/03/17 06/04/17 Unknown Rx Cinacalcet [Sensipar] 30 mg PO QDAY tablet 06/03/17 06/04/17 Unknown Rx Furosemide [Lasix TAB] 40 mg PO QDAY tablet 06/03/17 06/04/17 Unknown Rx Losartan [Cozaar] 50 mg PO QDAY tablet 06/03/17 06/04/17 Unknown Rx ALBUTEROL Inhaler [ProAir HFA 1 puff PO QDAY PRN 06/04/17 06/04/17 Unknown History Inhaler] ALBUTEROL NEB's [Proventil 0.083% 3 ml INHALATION TID 06/04/17 06/04/17 Unknown History NEBS] Tiotropium [place] [Spiriva] 1 puff PO QDAY 06/04/17 06/04/17 Unknown History Active Meds: Active Medications Acetaminophen (Tylenol) 650 mg PO Q4H PRN PRN Reason: Pain MILD(1-3)/Fever >100.5/DYE Albuterol (Proventil) 2.5 mg IH TIDRT [facility] Last Admin: 06/04/17 20:34 Dose: 2.5 mg Aspirin (Baby Aspirin) 81 mg PO QDAY [facility] Last Admin: 06/04/17 14:00 Dose: Not Given Bisacodyl (Dulcolax) 10 mg VT QDAY PRN PRN Reason: Constipation unrelieved by MOM Cinacalcet (Sensipar) 30 mg PO QDAY [facility] Dextrose (D50w (25gm) Syringe) 50 ml IV PRN PRN PRN Reason: Hypoglycemia Last Admin: 06/05/17 04:40 Dose: 50 ml Enoxaparin Sodium (Lovenox) 70 mg SUB-Q DAILY@2200 [facility] Last Admin: 06/04/17 21:32 Dose: 70 mg Famotidine (Pepcid) 10 mg IV Q12H [facility] Last Admin: 06/05/17 03:46 Dose: 10 mg Hydralazine HCl (Apresoline) 20 mg IV Q4H PRN PRN Reason: Blood Pressure SBP>160 Sodium Chloride (Nacl 0.9%) 100 mls @ 999 mls/hr IV CHAZ PRN PRN Reason: Hypotension Sodium Chloride (Nacl 0.9% 1000 Ml) 1,000 mls @ 75 mls/hr IV DIRECT [facility] Last Admin: 06/04/17 21:31 Dose: 75 mls/hr Insulin Aspart (Novolog) 0 units SUB-Q Q6HR [facility] PRN Reason: Protocol Labetalol HCl (Normodyne) 20 mg IV Q4H PRN PRN Reason: for BP >160/100 Tiotropium [place] (Spiriva) 1 puff IH QDAY [facility] Last Admin: 06/04/17 15:00 Dose: Not Given Review of Systems All systems: negative Physical Examination Vital Signs Temp Pulse Resp BP Pulse Ox 98.3 F 73 19 181/72 100 06/04/17 03:59 06/04/17 03:59 06/04/17 03:59 06/04/17 03:59 06/04/17 03:59 General appearance: no acute distress HEENT: Positive: PERRL Neck: Positive: neck supple Cardiac: Positive: Reg Rate and Rhythm, Systolic Murmur Lungs: Positive: clear to auscultation Results 06/05/17 06:42 06/05/17 06:42 Cardiac Enzymes 06/05/17 Range/Units 06:42 AST 64 H (5-40) units/L CBC 06/05/17 Range/Units 06:42 WBC 5.9 (4.5-11.0) K/mm3 RBC 3.04 L (3.65-5.03) M/mm3 Hgb 8.9 L (11.8-15.2) gm/dl Hct 28.7 L (35.5-45.6) % Plt Count 112 L (140-440) K/mm3 Lymph # 0.8 L (1.2-5.4) K/mm3 [place] # 0.7 (0.0-0.8) K/mm3 Eos # 0.2 (0.0-0.4) K/mm3 Baso # 0.1 (0.0-0.1) K/mm3 Comprehensive Metabolic Panel 06/05/17 Range/Units 06:42 Sodium 138 (137-145) mmol/L Potassium 4.2 (3.6-5.0) mmol/L Chloride 98.4 (98-107) mmol/L Carbon Dioxide 21 L (22-30) mmol/L BUN 47 H (9-20) mg/dL Creatinine 9.2 H (0.8-1.5) mg/dL Glucose 108 H (75-100) mg/dL Calcium 8.0 L (8.4-10.2) mg/dL Direct Bilirubin 0.8 H (0-0.2) mg/dL Indirect Bilirubin 0.6 mg/dL AST 64 H (5-40) units/L ALT 56 (7-56) units/L Alkaline Phosphatase 101 (35-129) units/L Total Protein 6.1 L (6.3-8.2) g/dL Albumin 3.1 L (3.9-5) g/dL Assessment and Plan Abdominal Pain Cholelithiasis, no evidence of cholecystitis Non-ischemic cardiomyopathy, LVEF 25% MPI this admission, fixed inferolateral defect, no ischemia Single chamber SJM AICD Paroxysmal afib on eliquis as outpatient Chronically elevated BNP secondary to renal failure and chronic systolic heart failure Chronically abnormal non-specific troponin ESRD on HD x 14 years Chronic anemia and thrombocytopenia Recommendations: No further cardiac work-up is needed Moderate perioperative cardiac risk for any abdominal surgery Ensure euvolemic through appropriate HD prior to any surgical intervention if needed Resume losartan 50 mg po daily, coreg 25 mg po bid, simvastatin 10 mg and eliquis 5 mg po bid (if no surgery is planned) Will continue to follow
[2017-06-05] MEDS: PROVENTIL IH SCH ×3 (12:52→19:18)
--- NOTE | 2017-06-05 13:51 | Progress Note ---
Assessment and Plan - Patient Problems (1) End stage renal disease Current Visit: No Status: Chronic Plan to address problem: cont HD on TTS schedule (2) Abdominal pain Current Visit: No Status: Acute Qualifiers: Abdominal location: lower abdomen, unspecified Qualified Code(s): R10.30 - Lower abdominal pain, unspecified Plan to address problem: follow GI recommendations (3) Chronic atrial fibrillation Current Visit: No Status: Acute Plan to address problem: currently rate controlled, cont A/c with apixaban (4) Diabetes mellitus Current Visit: No Status: Chronic Qualifiers: Diabetes mellitus type: type 2 Diabetes mellitus complication status: with skin complications Diabetes mellitus complication detail: with other skin complication Qualified Code(s): E10.628 - Type 1 diabetes mellitus with other skin complications Plan to address problem: glucose control as per primary attending (5) Hypertensive chronic kidney disease with stage 5 chronic kidney disease or end stage renal disease Current Visit: No Status: Chronic Plan to address problem: BP uncontrolled, will target UF 2-3kg as tolerated, resume losartan Subjective Date of service: 06/05/17 Principal diagnosis: ESRD Interval history: pt awake, alert, in NAD Objective - Vital Signs Vital signs: Vital Signs - 12hr 06/05/17 06/05/17 06/05/17 04:24 05:00 05:01 Temperature 98.4 F Pulse Rate 62 Respiratory 18 18 Rate Respiratory 20 Rate [Right Upper Abdomen] Blood Pressure 158/63 Blood Pressure [Left] O2 Sat by Pulse 95 95 Oximetry 06/05/17 06/05/17 06/05/17 05:17 07:16 07:17 Temperature 98.4 F Pulse Rate 60 60 Respiratory 18 20 Rate Respiratory Rate [Right Upper Abdomen] Blood Pressure 163/64 Blood Pressure [Left] O2 Sat by Pulse 100 95 Oximetry 06/05/17 06/05/17 06/05/17 09:39 09:43 09:44 Temperature Pulse Rate 61 65 65 Respiratory Rate Respiratory Rate [Right Upper Abdomen] Blood Pressure 163/78 140/64 140/64 Blood Pressure [Left] O2 Sat by Pulse Oximetry 06/05/17 06/05/17 06/05/17 09:45 09:46 09:47 Temperature Pulse Rate 64 64 64 Respiratory Rate Respiratory Rate [Right Upper Abdomen] Blood Pressure 163/72 177/70 162/69 Blood Pressure [Left] O2 Sat by Pulse Oximetry 06/05/17 06/05/17 11:00 11:01 Temperature 97.3 F L Pulse Rate 59 L 62 Respiratory 18 Rate Respiratory Rate [Right Upper Abdomen] Blood Pressure 155/65 Blood Pressure 155/65 [Left] O2 Sat by Pulse 100 100 Oximetry - General Appearance General appearance: appears stated age, chronically ill EENT: ATNC, PERRL, mucous membranes moist Neck: no JVD Respiratory: Present: Clear to Ascultation Cardiology: regular, S1S2 Gastrointestinal: normoactive bowel sounds Integumentary: no rash, other (b/l BKA ) Neurologic: no focal deficit, alert and oriented x3, strength 5/5, CN 3-12 intact Psychiatric: mood/affect appropriate, cooperative - Lab 06/05/17 06:42 06/05/17 06:42 Most recent lab results Calcium 8.0 mg/dL (8.4-10.2) L 06/05/17 06:42 Magnesium 1.90 mg/dL (1.7-2.3) 06/04/17 07:06
--- NOTE | 2017-06-05 15:30 | Progress Note ---
<DAVIN OH - Last Filed: 06/05/17 16:10> Assessment and Plan Assessment and plan: Patient is a 72 years old male with past medical history atrial fib, CAD, diabetes, dialysis, CVA, ESRD, hypertension and PVD who presents to the Emergency department for lower abdominal pain, nausea and vomiting for the past 2 days.Patient was here recently admitted on 06/02/17 due to episode of unresponsiveness for several minutes while getting dialysis, lower abdominal pain nausea and vomiting. He was Discharge on 06/03/17. Since patient began having intermittent lower abdominal pain Abdominal Pain Most likely secondary to gastritis Started clear liquids diet as tolerated Gently IV hydration due to ESRD Patient-controlled GI consult Supportive care Cholelithiasis US showed Cholelithiasis; no evidence of acute cholecystitis HIDA scan re revealed no evidence of acute cholecystitis Supportive care Surgery consulted and recommended no surgical intervention at this time. GI consult Intractable nausea and vomiting Nothing by mouth Antiemetic Closely monitor electrolytes Transaminitis, elevated bilirubin bilirubin trending down R/o choledocolothiasis, may need MRCP per surgery GI consulted End-stage renal disease on dialysis Nephrology consulted Diabetes mellitus Accu-Chek before meals and at bedtime Sliding scale insulin/NovoLog ADA carbohydrate consistent diet Hypertensive urgency Continue home antihypertensive medications Closely monitor blood pressure CAD with elevated troponins Troponin trending up Most likely due to ESRD Echocardiogram on 06/05/2017 with ef 25%-30% EKG sinus rhythm, no changes Stress test take awaiting for findings cardiology consulted and recommended no further cardiac work-up is needed Afib Resume Eliquis DVT prophylaxis History Interval history: Patient denies nausea or vomiting. he reported umbilical pain and lower left quadrant pain.Labs and nursing notes reviwed Hospitalist Physical - Constitutional Vitals: Temp Pulse Resp BP Pulse Ox 97.1 F L 59 L 20 164/59 100 06/05/17 14:05 06/05/17 14:06 06/05/17 14:05 06/05/17 14:05 06/05/17 14:06 General appearance: Present: no acute distress - EENT ENT: hearing intact - Neck Neck: Present: supple - Respiratory Respiratory effort: normal Respiratory: bilateral: CTA - Cardiovascular Rhythm: regular Heart Sounds: Present: S1 & S2 - Extremities Extremity abnormal: other (bilateral lower extremity BKA) - Abdominal General gastrointestinal: soft, tender Localized gastrointestinal: tender: LLQ, midline (with palpitation) - Integumentary Integumentary: Present: clear, warm, dry - Psychiatric Psychiatric: appropriate mood/affect - Neurologic Neurologic: other (bilateral lower extremity BKA) - Allied Health Allied health notes reviewed: nursing Results - Labs CBC & Chem 7: 06/05/17 06:42 06/05/17 06:42 Labs: Laboratory Last Values WBC 5.9 K/mm3 (4.5-11.0) 06/05/17 06:42 RBC 3.04 M/mm3 (3.65-5.03) L 06/05/17 06:42 Hgb 8.9 gm/dl (11.8-15.2) L 06/05/17 06:42 Hct 28.7 % (35.5-45.6) L 06/05/17 06:42 MCV 94 fl (84-94) 06/05/17 06:42 MCH 29 pg (28-32) 06/05/17 06:42 MCHC 31 % (32-34) L 06/05/17 06:42 RDW 19.6 % (13.2-15.2) H 06/05/17 06:42 Plt Count 112 K/mm3 (140-440) L 06/05/17 06:42 Lymph % (Auto) 14.4 % (13.4-35.0) 06/05/17 06:42 [place] % (Auto) 12.6 % (0.0-7.3) H 06/05/17 06:42 Eos % (Auto) 4.2 % (0.0-4.3) 06/05/17 06:42 Baso % (Auto) 1.7 % (0.0-1.8) 06/05/17 06:42 Lymph # 0.8 K/mm3 (1.2-5.4) L 06/05/17 06:42 [place] # 0.7 K/mm3 (0.0-0.8) 06/05/17 06:42 Eos # 0.2 K/mm3 (0.0-0.4) 06/05/17 06:42 Baso # 0.1 K/mm3 (0.0-0.1) 06/05/17 06:42 Seg Neutrophils % 67.1 % (40.0-70.0) 06/05/17 06:42 Seg Neutrophils # 4.0 K/mm3 (1.8-7.7) 06/05/17 06:42 PT 21.9 Sec. (12.2-14.9) H 06/04/17 07:06 INR 1.81 (0.87-1.13) H 06/04/17 07:06 APTT 42.5 Sec. (24.2-36.6) H 06/04/17 07:06 Sodium 138 mmol/L (137-145) 06/05/17 06:42 Potassium 4.2 mmol/L (3.6-5.0) 06/05/17 06:42 Chloride 98.4 mmol/L (98-107) 06/05/17 06:42 Carbon Dioxide 21 mmol/L (22-30) L 06/05/17 06:42 Anion Gap 23 mmol/L 06/05/17 06:42 BUN 47 mg/dL (9-20) H 06/05/17 06:42 Creatinine 9.2 mg/dL (0.8-1.5) H 06/05/17 06:42 Estimated GFR 7 ml/min 06/05/17 06:42 BUN/Creatinine Ratio 5 % 06/05/17 06:42 Glucose 108 mg/dL (75-100) H 06/05/17 06:42 POC Glucose 89 (70-105) 06/05/17 11:32 Lactic Acid 1.90 mmol/L (0.7-2.0) 06/04/17 09:29 Calcium 8.0 mg/dL (8.4-10.2) L 06/05/17 06:42 Magnesium 1.90 mg/dL (1.7-2.3) 06/04/17 07:06 Total Bilirubin 1.40 mg/dL (0.1-1.2) H 06/05/17 06:42 Direct Bilirubin 0.8 mg/dL (0-0.2) H 06/05/17 06:42 Indirect Bilirubin 0.6 mg/dL 06/05/17 06:42 AST 64 units/L (5-40) H 06/05/17 06:42 ALT 56 units/L (7-56) 06/05/17 06:42 Alkaline Phosphatase 101 units/L (35-129) 06/05/17 06:42 Troponin T 0.159 ng/mL (0.00-0.029) H* D 06/04/17 19:13 NT-Pro-B Natriuret Pep > 97853 pg/mL (0-900) H 06/04/17 07:06 Total Protein 6.1 g/dL (6.3-8.2) L 06/05/17 06:42 Albumin 3.1 g/dL (3.9-5) L 06/05/17 06:42 Albumin/Globulin Ratio 1.0 % 06/05/17 06:42 Triglycerides 75 mg/dL (2-149) 06/04/17 07:06 Cholesterol 97 mg/dL (50-199) 06/04/17 07:06 LDL Cholesterol Direct 38 mg/dL (50-130) L 06/04/17 07:06 HDL Cholesterol 44 mg/dL (40-59) 06/04/17 07:06 Cholesterol/HDL Ratio 2.20 % 06/04/17 07:06 Lipase 47 units/L (13-60) 06/04/17 07:06 Blood Type A POSITIVE 06/04/17 07:06 Antibody Screen Negative 06/04/17 07:06 <ANA TOWNSEND M - Last Filed: 07/07/17 18:38> Hospitalist Physical - Constitutional Vitals: Temp Pulse Resp BP Pulse Ox 97.3 F L 59 L 20 147/66 96 06/07/17 07:30 06/07/17 13:58 06/07/17 13:58 06/07/17 09:44 06/07/17 07:30 Results - Labs CBC & Chem 7: 06/05/17 06:42 06/05/17 06:42 Labs: Laboratory Last Values WBC 5.9 K/mm3 (4.5-11.0) 06/05/17 06:42 RBC 3.04 M/mm3 (3.65-5.03) L 06/05/17 06:42 Hgb 8.9 gm/dl (11.8-15.2) L 06/05/17 06:42 Hct 28.7 % (35.5-45.6) L 06/05/17 06:42 MCV 94 fl (84-94) 06/05/17 06:42 MCH 29 pg (28-32) 06/05/17 06:42 MCHC 31 % (32-34) L 06/05/17 06:42 RDW 19.6 % (13.2-15.2) H 06/05/17 06:42 Plt Count 112 K/mm3 (140-440) L 06/05/17 06:42 Lymph % (Auto) 14.4 % (13.4-35.0) 06/05/17 06:42 [place] % (Auto) 12.6 % (0.0-7.3) H 06/05/17 06:42 Eos % (Auto) 4.2 % (0.0-4.3) 06/05/17 06:42 Baso % (Auto) 1.7 % (0.0-1.8) 06/05/17 06:42 Lymph # 0.8 K/mm3 (1.2-5.4) L 06/05/17 06:42 [place] # 0.7 K/mm3 (0.0-0.8) 06/05/17 06:42 Eos # 0.2 K/mm3 (0.0-0.4) 06/05/17 06:42 Baso # 0.1 K/mm3 (0.0-0.1) 06/05/17 06:42 Seg Neutrophils % 67.1 % (40.0-70.0) 06/05/17 06:42 Seg Neutrophils # 4.0 K/mm3 (1.8-7.7) 06/05/17 06:42 PT 21.9 Sec. (12.2-14.9) H 06/04/17 07:06 INR 1.81 (0.87-1.13) H 06/04/17 07:06 APTT 42.5 Sec. (24.2-36.6) H 06/04/17 07:06 Sodium 138 mmol/L (137-145) 06/05/17 06:42 Potassium 4.2 mmol/L (3.6-5.0) 06/05/17 06:42 Chloride 98.4 mmol/L (98-107) 06/05/17 06:42 Carbon Dioxide 21 mmol/L (22-30) L 06/05/17 06:42 Anion Gap 23 mmol/L 06/05/17 06:42 BUN 47 mg/dL (9-20) H 06/05/17 06:42 Creatinine 9.2 mg/dL (0.8-1.5) H 06/05/17 06:42 Estimated GFR 7 ml/min 06/05/17 06:42 BUN/Creatinine Ratio 5 % 06/05/17 06:42 Glucose 108 mg/dL (75-100) H 06/05/17 06:42 POC Glucose 238 (70-105) H 06/07/17 11:37 Lactic Acid 1.90 mmol/L (0.7-2.0) 06/04/17 09:29 Calcium 8.0 mg/dL (8.4-10.2) L 06/05/17 06:42 Magnesium 1.90 mg/dL (1.7-2.3) 06/04/17 07:06 Total Bilirubin 1.40 mg/dL (0.1-1.2) H 06/05/17 06:42 Direct Bilirubin 0.8 mg/dL (0-0.2) H 06/05/17 06:42 Indirect Bilirubin 0.6 mg/dL 06/05/17 06:42 AST 64 units/L (5-40) H 06/05/17 06:42 ALT 56 units/L (7-56) 06/05/17 06:42 Alkaline Phosphatase 101 units/L (35-129) 06/05/17 06:42 Troponin T 0.159 ng/mL (0.00-0.029) H* D 06/04/17 19:13 NT-Pro-B Natriuret Pep > 82119 pg/mL (0-900) H 06/04/17 07:06 Total Protein 6.1 g/dL (6.3-8.2) L 06/05/17 06:42 Albumin 3.1 g/dL (3.9-5) L 06/05/17 06:42 Albumin/Globulin Ratio 1.0 % 06/05/17 06:42 Triglycerides 75 mg/dL (2-149) 06/04/17 07:06 Cholesterol 97 mg/dL (50-199) 06/04/17 07:06 LDL Cholesterol Direct 38 mg/dL (50-130) L 06/04/17 07:06 HDL Cholesterol 44 mg/dL (40-59) 06/04/17 07:06 Cholesterol/HDL Ratio 2.20 % 06/04/17 07:06 Lipase 47 units/L (13-60) 06/04/17 07:06 Blood Type A POSITIVE 06/04/17 07:06 Antibody Screen Negative 06/04/17 07:06
[2017-06-05] MEDS: COZAAR PO SCH (15:32)
--- NOTE | 2017-06-05 17:02 | Gastroenterology Consultation ---
History of Present Illness - Reason for Consult Consult date: 06/05/17 abdominal pain Requesting physician: ANA TOWNSEND - History of Present Illness Mr Brown is a 72 yo aam with h/o PVD, ESRD, CHF, afib who presents with 2-3 weeks history of abdominal pain and n/v. Patient seen at the time of dialysis. He is able to provide most of his history in detail, and rest gathered from chart review. Prior to admission, he reports having episodes of mid/lower abdominal cramping following meals. This was associated with non-bloody/non- bilious emesis episodes. This persisted which led to him coming to the hospital. He was found to have cholethiasis on imaging. Surgery has been following (no surgical intervention indicated per chart review). At the time of exam, he reports that his symptoms have improved since admission. His abdominal pain has subsided, and he tolerated a meal earlier today without abdominal pain or n/v. He denies gi bleeding/change in bowel habits, or nsaids. Past History Past Medical History: atrial fib, CAD, ESRD, hypertension, hyperlipidemia, PVD Past Surgical History: Other (AV fistula placements right upper extremity, AICD in 2004/2013, bilateral below-knee amputations) Social history: denies: smoking, alcohol abuse Family history: diabetes, hypertension Medications and Allergies Allergies Allergy/AdvReac Type Severity Reaction Status Date / Time No Known Allergies Allergy Verified 12/17/16 10:26 Home Medications Medication Instructions Recorded Confirmed Last Taken Type Carvedilol [Coreg] 25 mg PO BID 06/15/14 06/04/17 06/01/17 History Furosemide [Lasix TAB] 40 mg PO QDAY 06/02/17 06/04/17 06/01/17 History Insulin Aspart [NovoLOG Flexpen] 10 units SQ BID 06/02/17 06/04/17 06/01/17 History Losartan [Cozaar] 50 mg PO QDAY 06/02/17 06/04/17 06/01/17 History Simvastatin [Zocor TAB] 10 mg PO QHS 06/02/17 06/04/17 06/01/17 History Apixaban [Eliquis] 5 mg PO BID tablet 06/03/17 06/04/17 Unknown Rx Carvedilol [Coreg] 25 mg PO BID tablet 06/03/17 06/04/17 Unknown Rx Cinacalcet [Sensipar] 30 mg PO QDAY tablet 06/03/17 06/04/17 Unknown Rx Furosemide [Lasix TAB] 40 mg PO QDAY tablet 06/03/17 06/04/17 Unknown Rx Losartan [Cozaar] 50 mg PO QDAY tablet 06/03/17 06/04/17 Unknown Rx ALBUTEROL Inhaler [ProAir HFA 1 puff PO QDAY PRN 06/04/17 06/04/17 Unknown History Inhaler] ALBUTEROL NEB's [Proventil 0.083% 3 ml INHALATION TID 06/04/17 06/04/17 Unknown History NEBS] Tiotropium [place] [Spiriva] 1 puff PO QDAY 06/04/17 06/04/17 Unknown History Active Meds: Active Medications Acetaminophen (Tylenol) 650 mg PO Q4H PRN PRN Reason: Pain MILD(1-3)/Fever >100.5/DYE Albuterol (Proventil) 2.5 mg IH TIDRT [facility] Last Admin: 06/05/17 15:02 Dose: Not Given Apixaban (Eliquis) 5 mg PO BID GRACIE PRN Reason: Protocol Aspirin (Baby Aspirin) 81 mg PO QDAY [facility] Last Admin: 06/05/17 10:00 Dose: Not Given Bisacodyl (Dulcolax) 10 mg OK QDAY PRN PRN Reason: Constipation unrelieved by MOM Carvedilol (Coreg) 25 mg PO BID GRACIE Cinacalcet (Sensipar) 30 mg PO QDAY [facility] Last Admin: 06/05/17 10:00 Dose: Not Given Dextrose (D50w (25gm) Syringe) 50 ml IV PRN PRN PRN Reason: Hypoglycemia Last Admin: 06/05/17 04:40 Dose: 50 ml Famotidine (Pepcid) 10 mg IV Q12H [facility] Last Admin: 06/05/17 03:46 Dose: 10 mg Furosemide (Lasix) 40 mg PO QDAY GRACIE Hydralazine HCl (Apresoline) 20 mg IV Q4H PRN PRN Reason: Blood Pressure SBP>160 Sodium Chloride (Nacl 0.9%) 100 mls @ 999 mls/hr IV CHAZ PRN PRN Reason: Hypotension Sodium Chloride (Nacl 0.9% 1000 Ml) 1,000 mls @ 75 mls/hr IV DIRECT [facility] Last Admin: 06/04/17 21:31 Dose: 75 mls/hr Insulin Aspart (Novolog) 0 units SUB-Q Q6HR GRACIE PRN Reason: Protocol Last Admin: 06/05/17 12:00 Dose: Not Given Labetalol HCl (Normodyne) 20 mg IV Q4H PRN PRN Reason: for BP >160/100 Losartan Potassium (Cozaar) 50 mg PO QDAY [facility] Last Admin: 06/05/17 15:32 Dose: 50 mg Tiotropium [place] (Spiriva) 1 puff IH QDAY [facility] Last Admin: 06/05/17 10:00 Dose: Not Given Review of Systems - Review of Systems All systems: negative (per HPI) Exam - Exam Narrative Exam: Gen: NAD, in dialysis, chronically ill appearing Head: nc/at Mouth: poor dentition, no oral lesions Eyes: anicteric CV: RRR Lungs: CTAB, non labored Abd: soft, nt, nd, +bs, + surgical scars Ext: bilateral BKA Psych: appropriate mood and affect Neuro: oriented x 3 - Constitutional Vital Signs: Temp Pulse Resp BP Pulse Ox 97.1 F L 60 20 154/59 100 06/05/17 14:05 06/05/17 15:32 06/05/17 14:05 06/05/17 15:32 06/05/17 14:06 - Labs CBC & Chem 7: 06/05/17 06:42 06/05/17 06:42 Lab Results: Laboratory Results - last 24 hr 06/04/17 06/04/17 06/05/17 17:03 19:13 04:36 WBC RBC Hgb Hct MCV MCH MCHC RDW Plt Count Lymph % (Auto) [place] % (Auto) Eos % (Auto) Baso % (Auto) Lymph # [place] # Eos # Baso # Seg Neutrophils % Seg Neutrophils # Sodium Potassium Chloride Carbon Dioxide Anion Gap BUN Creatinine Estimated GFR BUN/Creatinine Ratio Glucose POC Glucose 89 57 L Calcium Total Bilirubin Direct Bilirubin Indirect Bilirubin AST ALT Alkaline Phosphatase Troponin T 0.159 H* D Total Protein Albumin Albumin/Globulin Ratio 06/05/17 06/05/17 06/05/17 05:25 06:42 06:42 WBC 5.9 RBC 3.04 L Hgb 8.9 L Hct 28.7 L MCV 94 MCH 29 MCHC 31 L RDW 19.6 H Plt Count 112 L Lymph % (Auto) 14.4 [place] % (Auto) 12.6 H Eos % (Auto) 4.2 Baso % (Auto) 1.7 Lymph # 0.8 L [place] # 0.7 Eos # 0.2 Baso # 0.1 Seg Neutrophils % 67.1 Seg Neutrophils # 4.0 Sodium 138 Potassium 4.2 Chloride 98.4 Carbon Dioxide 21 L Anion Gap 23 BUN 47 H Creatinine 9.2 H Estimated GFR 7 BUN/Creatinine Ratio 5 Glucose 108 H POC Glucose 168 H Calcium 8.0 L Total Bilirubin 1.40 H Direct Bilirubin 0.8 H Indirect Bilirubin 0.6 AST 64 H ALT 56 Alkaline Phosphatase 101 Troponin T Total Protein 6.1 L Albumin 3.1 L Albumin/Globulin Ratio 1.0 06/05/17 11:32 WBC RBC Hgb Hct MCV MCH MCHC RDW Plt Count Lymph % (Auto) [place] % (Auto) Eos % (Auto) Baso % (Auto) Lymph # [place] # Eos # Baso # Seg Neutrophils % Seg Neutrophils # Sodium Potassium Chloride Carbon Dioxide Anion Gap BUN Creatinine Estimated GFR BUN/Creatinine Ratio Glucose POC Glucose 89 Calcium Total Bilirubin Direct Bilirubin Indirect Bilirubin AST ALT Alkaline Phosphatase Troponin T Total Protein Albumin Albumin/Globulin Ratio Assessment and Plan 1. Abdominal pain 2. Abnormal stress test/history of cardiomyopathy 3. PVD 4.afib on eliquis -unclear etiology of abd pain, however currently improved. HIDA neg for acute cholecystitis, although abnormal GB EF. Vascular etiology should also be considered as well given his history/risk factors and symptoms. Currently reports improvement in symptoms. -would hold off on endoscopic work-up/egd as symptoms have improved, and co- morbidities/positive stress test -further management based on progress/clinical course -surgery and cardiology following
[2017-06-05] MEDS ORDERED: NACL 0.9 (PRIMING MACHINE ONLY DIALYSIS) MC ONE (20:24)
[2017-06-06] MEDS: COREG PO SCH ×3 (00:55→23:53)
[2017-06-06] MEDS: ELIQUIS PO SCH ×3 (00:55→23:53)
[2017-06-06] MEDS: NOVOLOG SUB-Q SCH ×5 (01:27→23:54)
[2017-06-06] MEDS: PEPCID IV SCH ×2 (05:03→18:16)
[2017-06-06] MEDS: PROVENTIL IH SCH ×3 (07:33→21:26)
--- NOTE | 2017-06-06 08:42 | Progress Note ---
Assessment and Plan 1. Acute abdominal pain resolved. 2. Dilated nonischemic cardiomyopathy LV EF 25% 3. Chronic atrial fibrillation 4. End-stage renal disease 5. Peripheral vascular disease 6. Essential hypertension 7. Presence AICD Plan. Cardiac-henson stable. Continue cardiac management and follow-up in the office with his cable assembler and swager. Subjective Date of service: 06/06/17 Principal diagnosis: ESRD Interval history: No cardiac complains. He denies abdominal pain no nausea or vomiting. Objective Vital Signs Temp Pulse Pulse Resp Resp Resp BP 06/06/17 07:43 57 L 18 06/06/17 07:33 58 L 18 06/06/17 05:57 97.5 F L 57 L 18 150/58 06/05/17 22:00 16 06/05/17 20:16 97.9 F 71 18 173/88 06/05/17 19:10 98.0 F 64 18 160/70 06/05/17 19:00 60 170/79 06/05/17 18:45 59 L 150/72 06/05/17 18:30 64 162/69 06/05/17 18:15 59 L 171/76 06/05/17 18:00 60 155/81 06/05/17 17:45 60 173/73 06/05/17 17:30 62 149/74 06/05/17 17:15 62 156/71 06/05/17 17:00 61 155/68 06/05/17 16:45 61 154/76 06/05/17 16:30 60 148/77 06/05/17 16:15 62 151/76 06/05/17 16:00 98.2 F 59 L 18 170/78 06/05/17 15:32 60 154/59 06/05/17 14:06 59 L 06/05/17 14:05 97.1 F L 59 L 20 06/05/17 11:01 62 06/05/17 11:00 97.3 F L 59 L 18 155/65 06/05/17 09:47 64 162/69 06/05/17 09:46 64 177/70 06/05/17 09:45 64 163/72 06/05/17 09:44 65 140/64 06/05/17 09:43 65 140/64 06/05/17 09:39 61 163/78 BP Pulse Ox 06/06/17 07:43 06/06/17 07:33 06/06/17 05:57 97 06/05/17 22:00 06/05/17 20:16 44 L 06/05/17 19:10 06/05/17 19:00 06/05/17 18:45 06/05/17 18:30 06/05/17 18:15 06/05/17 18:00 06/05/17 17:45 06/05/17 17:30 06/05/17 17:15 06/05/17 17:00 06/05/17 16:45 06/05/17 16:30 06/05/17 16:15 06/05/17 16:00 06/05/17 15:32 06/05/17 14:06 100 06/05/17 14:05 164/59 100 06/05/17 11:01 100 06/05/17 11:00 155/65 100 06/05/17 09:47 06/05/17 09:46 06/05/17 09:45 06/05/17 09:44 06/05/17 09:43 06/05/17 09:39 - Physical Examination General: Appears Well, No Apparent Distress HEENT: Positive: PERRL, Normocephaly, Mucus Membranes Moist Neck: Positive: neck supple. Negative: JVD/HJR Cardiac: Positive: Regular Rate, S1/S2, S3, PMI, Dilated, Laterally Displaced Lungs: Positive: clear to auscultation, No Wheeze, Rales, Rhonchi Neuro: Positive: Grossly Intact Abdomen: Positive: Soft, Active Bowel Sounds Extremities: Present: Other (Bilateral BKA). Absent: edema
[2017-06-06] MEDS ORDERED: COZAAR PO SCH (10:00)
[2017-06-06] MEDS: BABY ASPIRIN PO SCH (10:30)
[2017-06-06] MEDS: COZAAR PO SCH (10:31)
[2017-06-06] MEDS: SENSIPAR PO SCH (10:31)
[2017-06-06] MEDS: LASIX PO SCH (10:32)
--- NOTE | 2017-06-06 10:35 | Progress Note ---
Assessment and Plan 72 yo M with 1. Abd pain, n/v - improved 2. cholelithiasis 3. transaminitis, elevated bilirubin 4. ESRD on HD 5. PVD, mesenteric vascular calcifications 6. CAD with elevated troponins 7. Afib on eliquis 8. DM 9. fat containing umbilical hernia Plan: 1. no evidence of acute cholecystitis on labs or imaging 2. advanced to reg diet 3. dc abx 4. pain and nausea control 5. HD per nephro 6. GI ppx 7. GI and cards input noted 8. no surgical intervention planned for GB at this time 9. recommend vascular surgery eval for mesenteric calcifications, which could be a cause for abdominal pain. Will sign off, please call with any questions. Subjective Date of service: 06/06/17 Narrative: Pt seen and examined. Patient tolerated clear liquids without issue and is wanting regular food. No more n/v since admission. Abd pain much improved. Objective Vital Signs - 12hr 06/06/17 06/06/17 06/06/17 05:57 07:33 07:43 Temperature 97.5 F L Pulse Rate 57 L Pulse Rate [ 58 L 57 L Anterior Bilateral Throughout] Respiratory 18 Rate Respiratory 18 18 Rate [Anterior Bilateral Throughout] Blood Pressure 150/58 Blood Pressure [Left] O2 Sat by Pulse 97 Oximetry 06/06/17 08:53 Temperature 97.1 F L Pulse Rate 60 Pulse Rate [ Anterior Bilateral Throughout] Respiratory 16 Rate Respiratory Rate [Anterior Bilateral Throughout] Blood Pressure Blood Pressure 142/58 [Left] O2 Sat by Pulse 100 Oximetry - General physical appearance Narrative Exam: Gen: Awake and alert. NAD CV: S1, S2+ resp: No audible wheezes Abd: soft, NT, ND. Ext: b/l BKA - Labs 06/05/17 06:42 06/05/17 06:42
--- NOTE | 2017-06-06 10:52 | Progress Note ---
Assessment and Plan Assessment and plan: Patient is a 72 years old male with past medical history atrial fib, CAD, diabetes, dialysis, CVA, ESRD, hypertension and PVD who presents to the Emergency department for lower abdominal pain, nausea and vomiting Acute gastritis Pain has now resolved, emesis is resolving also. Most likely due to an acute viral infection. Continue supportive care. Patient is improving. Cholelithiasis Case discussed with surgeon, patient has chronic cholelithiasis but it is not the cause of his pain. Reviewed images of right upper quadrant ultrasound and HIDA scan. No evidence of cholecystitis or obstruction. Intractable nausea and vomiting Continue antiemetics as needed, advance diet as tolerated, improving Transaminitis, elevated bilirubin bilirubin trending down End-stage renal disease on dialysis continue HD per nephrology Diabetes mellitus Continue Accu-Cheks, insulin and diabetic diet Hypertensive urgency Continue home antihypertensive medications Closely monitor blood pressure Type II PA Patient will known chronic systolic heart failure who presented with dehydration and intractable vomiting Elevated troponin most likely due to that, cardiology input appreciated, no further workup indicated. Afib with hypercoagulable states continue Eliquis DVT prophylaxis History Interval history: states that abdominal pain has now resolved, had one small emesis after lunch, but kept most food down Review of systems Constitutional: No fevers, no malaise, no joint pains CVS: No chest pain, no orthopnea, no dyspnea on exertion, no pedal edema GI: No abdominal pain, no diarrhea, no constipation Respiratory: No shortness of breath, no wheezing, no coughing Hospitalist Physical - Physical exam Narrative exam: General.: Appears well, no distress, nontoxic HEENT: Moist mucous membranes, extraocular muscles intact, no lymphadenopathy Neck: supple Cardiac: S1-S2 heard Lungs: clear to auscultation bilaterally Abdomen: soft , nontender, nondistended, bowel sounds positive Extremities: no edema clubbing or cyanosis Skin: no rash or lesions Neurologic: no gross focal deficits, vision deficits Psych: appropriate behavior, appropriate mood, corporative, judgment intact - Constitutional Vitals: Temp Pulse Resp BP Pulse Ox 97.1 F L 66 16 142/58 100 06/06/17 08:53 06/06/17 10:31 06/06/17 08:53 06/06/17 10:31 06/06/17 08:53 General appearance: Present: no acute distress Results - Labs CBC & Chem 7: 12/01/17 06:42 06/05/17 06:42 Labs: Laboratory Last Values WBC 5.9 K/mm3 (4.5-11.0) 06/05/17 06:42 RBC 3.04 M/mm3 (3.65-5.03) L 06/05/17 06:42 Hgb 8.9 gm/dl (11.8-15.2) L 06/05/17 06:42 Hct 28.7 % (35.5-45.6) L 06/05/17 06:42 MCV 94 fl (84-94) 06/05/17 06:42 MCH 29 pg (28-32) 06/05/17 06:42 MCHC 31 % (32-34) L 06/05/17 06:42 RDW 19.6 % (13.2-15.2) H 06/05/17 06:42 Plt Count 112 K/mm3 (140-440) L 06/05/17 06:42 Lymph % (Auto) 14.4 % (13.4-35.0) 06/05/17 06:42 [place] % (Auto) 12.6 % (0.0-7.3) H 06/05/17 06:42 Eos % (Auto) 4.2 % (0.0-4.3) 06/05/17 06:42 Baso % (Auto) 1.7 % (0.0-1.8) 06/05/17 06:42 Lymph # 0.8 K/mm3 (1.2-5.4) L 06/05/17 06:42 [place] # 0.7 K/mm3 (0.0-0.8) 06/05/17 06:42 Eos # 0.2 K/mm3 (0.0-0.4) 06/05/17 06:42 Baso # 0.1 K/mm3 (0.0-0.1) 06/05/17 06:42 Seg Neutrophils % 67.1 % (40.0-70.0) 06/05/17 06:42 Seg Neutrophils # 4.0 K/mm3 (1.8-7.7) 06/05/17 06:42 PT 21.9 Sec. (12.2-14.9) H 06/04/17 07:06 INR 1.81 (0.87-1.13) H 06/04/17 07:06 APTT 42.5 Sec. (24.2-36.6) H 06/04/17 07:06 Sodium 138 mmol/L (137-145) 06/05/17 06:42 Potassium 4.2 mmol/L (3.6-5.0) 06/05/17 06:42 Chloride 98.4 mmol/L (98-107) 06/05/17 06:42 Carbon Dioxide 21 mmol/L (22-30) L 06/05/17 06:42 Anion Gap 23 mmol/L 06/05/17 06:42 BUN 47 mg/dL (9-20) H 06/05/17 06:42 Creatinine 9.2 mg/dL (0.8-1.5) H 06/05/17 06:42 Estimated GFR 7 ml/min 06/05/17 06:42 BUN/Creatinine Ratio 5 % 06/05/17 06:42 Glucose 108 mg/dL (75-100) H 06/05/17 06:42 POC Glucose 137 (70-105) H 06/06/17 06:04 Lactic Acid 1.90 mmol/L (0.7-2.0) 06/04/17 09:29 Calcium 8.0 mg/dL (8.4-10.2) L 06/05/17 06:42 Magnesium 1.90 mg/dL (1.7-2.3) 06/04/17 07:06 Total Bilirubin 1.40 mg/dL (0.1-1.2) H 06/05/17 06:42 Direct Bilirubin 0.8 mg/dL (0-0.2) H 06/05/17 06:42 Indirect Bilirubin 0.6 mg/dL 06/05/17 06:42 AST 64 units/L (5-40) H 06/05/17 06:42 ALT 56 units/L (7-56) 06/05/17 06:42 Alkaline Phosphatase 101 units/L (35-129) 06/05/17 06:42 Troponin T 0.159 ng/mL (0.00-0.029) H* D 06/04/17 19:13 NT-Pro-B Natriuret Pep > 16845 pg/mL (0-900) H 06/04/17 07:06 Total Protein 6.1 g/dL (6.3-8.2) L 06/05/17 06:42 Albumin 3.1 g/dL (3.9-5) L 06/05/17 06:42 Albumin/Globulin Ratio 1.0 % 06/05/17 06:42 Triglycerides 75 mg/dL (2-149) 06/04/17 07:06 Cholesterol 97 mg/dL (50-199) 06/04/17 07:06 LDL Cholesterol Direct 38 mg/dL (50-130) L 06/04/17 07:06 HDL Cholesterol 44 mg/dL (40-59) 06/04/17 07:06 Cholesterol/HDL Ratio 2.20 % 06/04/17 07:06 Lipase 47 units/L (13-60) 06/04/17 07:06 Blood Type A POSITIVE 06/04/17 07:06 Antibody Screen Negative 06/04/17 07:06
[2017-06-06] MEDS: SPIRIVA IH SCH (10:56)
[2017-06-06] MEDS ORDERED: NACL 0.9% 100 ML IV PRN (11:44)
--- NOTE | 2017-06-06 11:45 | Progress Note ---
Assessment and Plan - Patient Problems (1) Abdominal pain Current Visit: No Status: Acute Qualifiers: Abdominal location: lower abdomen, unspecified Qualified Code(s): R10.30 - Lower abdominal pain, unspecified Plan to address problem: No evidence of acute cholecystitis. Surgeon on the case (2) ESRD needing dialysis Current Visit: No Status: Acute Plan to address problem: Hemodialysis again today. (3) Hypertensive chronic kidney disease with stage 5 chronic kidney disease or end stage renal disease Current Visit: No Status: Acute Plan to address problem: Follow-up blood pressure on current medications (4) Anemia due to chronic kidney disease Current Visit: No Status: Chronic Plan to address problem: Give Erythropoetin on dialysis (5) Diabetes mellitus Current Visit: No Status: Chronic Qualifiers: Diabetes mellitus type: type 2 Diabetes mellitus complication status: with skin complications Diabetes mellitus complication detail: with other skin complication Qualified Code(s): E10.628 - Type 1 diabetes mellitus with other skin complications Plan to address problem: Blood sugar management by primary attending Subjective Date of service: 06/06/17 Principal diagnosis: ESRD Interval history: Patient seen lying in bed. No complaints. Feels better. No abdominal pain nausea vomiting Objective - Exam Narrative Exam: Elderly -Polish male lying in bed in no acute distress HEENT: NCAT, pink oral mucous membrane Neck: Supple, no venous distention CVS: S1S2 RRR with no murmur, rub or gallop Chest: Clear to auscultation Abdomen: Protuberant, soft, nontender, no organomegaly, bowel sounds are present Extremities: No edema, status post bilateral amputations Neuro: Awake, alert no focal deficits - Vital Signs Vital signs: Vital Signs - 12hr 06/06/17 06/06/17 06/06/17 05:57 07:33 07:43 Temperature 97.5 F L Pulse Rate 57 L Pulse Rate [ 58 L 57 L Anterior Bilateral Throughout] Respiratory 18 Rate Respiratory 18 18 Rate [Anterior Bilateral Throughout] Blood Pressure 150/58 Blood Pressure [Left] O2 Sat by Pulse 97 Oximetry 06/06/17 06/06/17 06/06/17 08:53 10:31 10:56 Temperature 97.1 F L Pulse Rate 60 66 Pulse Rate [ 58 L Anterior Bilateral Throughout] Respiratory 16 Rate Respiratory 18 Rate [Anterior Bilateral Throughout] Blood Pressure 142/58 Blood Pressure 142/58 [Left] O2 Sat by Pulse 100 Oximetry 06/06/17 11:01 Temperature Pulse Rate Pulse Rate [ 59 L Anterior Bilateral Throughout] Respiratory Rate Respiratory 18 Rate [Anterior Bilateral Throughout] Blood Pressure Blood Pressure [Left] O2 Sat by Pulse Oximetry - Lab 06/05/17 06:42 06/05/17 06:42 Most recent lab results Calcium 8.0 mg/dL (8.4-10.2) L 06/05/17 06:42 Magnesium 1.90 mg/dL (1.7-2.3) 06/04/17 07:06
--- NOTE | 2017-06-06 19:48 | Gastroenterology Progress Note ---
Assessment and Plan - Patient Problems (1) Nausea & vomiting Current Visit: Yes Status: Acute Plan to address problem: - Gallstones likely not etiology, agree with Surgery. - I suspect low-grade ischemia from both HD, but mostly from very severe ASCHD. However, based on the CT scan, the disease is extensive and involves both main branch of mesenteric vessels, but also extends to 3rd and 4th order branches. - Would control BP and not get too low; adjust dry weight as per HD. - Need optimization of cholesterol. - Continue current anticoagulation. - If persists, must get a mesenteric angiogram. Subjective Date of service: 06/06/17 Principal diagnosis: N/V/Abdominal Pain Interval history: The patient ate well this AM, but did not want dinner, because it made him "a little sick" with some vomiting. He currently has no pain. Denies blood in stool or emesis. Denies loss of appetite. Objective - Constitutional Vitals: Temp Pulse Resp BP Pulse Ox 97.1 F L 59 L 20 142/58 100 06/06/17 08:53 06/06/17 14:06 06/06/17 14:06 06/06/17 10:31 06/06/17 08:53 General appearance: no acute distress - Neck Neck: supple, normal ROM - Respiratory Respiratory effort: normal Respiratory: bilateral: CTA - Cardiovascular Rhythm: regular Heart Sounds: Present: S1 & S2 - Gastrointestinal General gastrointestinal: Present: soft, non-tender, non-distended - Labs CBC & Chem 7: 06/05/17 06:42 06/05/17 06:42 Labs: Laboratory Results - last 24 hr 06/06/17 06/06/17 06/06/17 01:10 06:04 13:50 POC Glucose 153 H 137 H 261 H 06/06/17 16:58 POC Glucose 137 H
[2017-06-06] MEDS: TYLENOL PO PRN (23:53)
[2017-06-07] MEDS: PEPCID IV SCH (05:08)
[2017-06-07] MEDS: TYLENOL PO PRN (07:04)
[2017-06-07] MEDS: NOVOLOG SUB-Q SCH ×2 (07:30→12:43)
[2017-06-07 08:09] VITALS: BP 147/66
[2017-06-07] MEDS: SPIRIVA IH SCH ×2 (08:33→10:59)
[2017-06-07] MEDS: PROVENTIL IH SCH ×2 (08:33→13:48)
--- NOTE | 2017-06-07 08:48 | Progress Note ---
Assessment and Plan 1. Acute abdominal pain resolved.probably secondary to mesenteric ischemia 2. Dilated nonischemic cardiomyopathy LV EF 25% 3. Chronic atrial fibrillation 4. End-stage renal disease 5. Peripheral vascular disease 6. Essential hypertension 7. Presence AICD Plan. Cardiac-henson stable. Continue cardiac management and follow-up in the office with his planning specialist Continue risk factor modification and antiplatelet therapy.. Subjective Date of service: 06/07/17 Principal diagnosis: N/V/Abdominal Pain Interval history: No cardiac complains. He denies abdominal pain no nausea or vomiting. Objective Vital Signs Temp Pulse Pulse Resp Resp BP BP 06/07/17 07:30 97.3 F L 58 L 18 147/66 06/07/17 05:24 97.2 F L 06/07/17 04:58 63 20 140/61 06/06/17 20:00 63 18 06/06/17 19:20 97.9 F 64 18 147/75 06/06/17 14:06 59 L 20 06/06/17 13:56 60 18 06/06/17 11:01 59 L 18 06/06/17 10:56 58 L 18 06/06/17 10:31 66 142/58 06/06/17 08:53 97.1 F L 60 16 142/58 06/06/17 08:49 97.1 F L 59 L 18 142/58 Pulse Ox 06/07/17 07:30 96 06/07/17 05:24 06/07/17 04:58 100 06/06/17 20:00 06/06/17 19:20 100 06/06/17 14:06 06/06/17 13:56 06/06/17 11:01 06/06/17 10:56 06/06/17 10:31 06/06/17 08:53 100 06/06/17 08:49 100 - Physical Examination General: Appears Well, No Apparent Distress HEENT: Positive: PERRL, Normocephaly, Mucus Membranes Moist Neck: Positive: neck supple. Negative: JVD/HJR Cardiac: Positive: Regular Rate, S1/S2, PMI, Laterally Displaced Lungs: Positive: clear to auscultation, No Wheeze, Rales, Rhonchi Neuro: Positive: Grossly Intact Abdomen: Positive: Soft, Active Bowel Sounds Extremities: Present: Other (Bilateral BKA). Absent: edema
[2017-06-07] MEDS: BABY ASPIRIN PO SCH (09:39)
[2017-06-07] MEDS: ELIQUIS PO SCH (09:39)
[2017-06-07] MEDS: SENSIPAR PO SCH (09:40)
[2017-06-07] MEDS: LASIX PO SCH (09:41)
[2017-06-07] MEDS: COZAAR PO SCH (09:42)
[2017-06-07] MEDS: COREG PO SCH (09:44)
[2017-06-07] MEDS ORDERED: PEPCID PO SCH (10:00)
--- NOTE | 2017-06-07 13:04 | Discharge Summary ---
Providers - Providers Date of Admission: 06/04/17 09:09 Attending physician: ANA TOWNSEND MD 06/04/17 09:43 Consult to Physician [CONS] Routine Consulting Provider: DALLIN SWENSON Reason For Exam: ESRD Place consult to:: yes Notified:: yes Phone number called:: yes 06/04/17 09:45 Consult to Physician [CONS] Routine Consulting Provider: CRISTY MÉNDEZ Reason For Exam: chcholelithiasis Place consult to:: yes Notified:: yes Phone number called:: yes 06/04/17 09:48 Consult to Physician [CONS] Routine Consulting Provider: KIMBERLEE BRYSON Reason For Exam: intractable vomiting/abdominal pain Place consult to:: yes Notified:: yes Phone number called:: yes Primary care physician: DISTRICT RANGER Hospitalization Condition: Stable Hospital course: Patient is a 72 years old male with past medical history atrial fib, CAD, diabetes, dialysis, CVA, ESRD, hypertension and PVD who presents to the Emergency department for lower abdominal pain, nausea and vomiting . He was found to have acute gastritis, most likely from a viral infection. He received supportive care and IV fluids. And he improved. He also went on to have imaging of his belly that showed cholelithiasis without any evidence of cholecystitis. Patient improved, he tolerated diet. He received cardiology consultation for elevated troponin, it was most likely a type II NH, elevated troponin due to end-stage renal disease. And no further workup was indicated. X Discharge diagnosis Acute gastritis Cholelithiasis Intractable nausea and vomiting Transaminitis, elevated bilirubin End-stage renal disease on dialysis Diabetes mellitus Hypertensive urgency Type II NH Afib with hypercoagulable states Disposition: TO HOME OR SELFCARE Time spent for discharge: 33 minutes Core Measure Documentation - Palliative Care Palliative Care/ Comfort Measures: Not Applicable - Core Measures Any of the following diagnoses?: none Exam - Physical Exam Narrative exam: General.: Appears well, no distress, nontoxic HEENT: Moist mucous membranes, extraocular muscles intact, no lymphadenopathy Neck: supple Cardiac: S1-S2 heard Lungs: clear to auscultation bilaterally Abdomen: soft , nontender, nondistended, bowel sounds positive Extremities: no edema clubbing or cyanosis Skin: no rash or lesions Neurologic: no gross focal deficits, vision deficits Psych: appropriate behavior, appropriate mood, corporative, judgment intact - Constitutional Vitals: Temp Pulse Resp BP Pulse Ox 97.3 F L 58 L 18 147/66 96 06/07/17 07:30 06/07/17 10:00 06/07/17 10:00 06/07/17 09:44 06/07/17 07:30 Plan Follow up with: PRIMARY CAREMD [Primary Care Provider] - 7 Days
--- NOTE | 2017-06-22 12:45 | Query- General ---
Dearae Garay Alex Date:___06/22/17 Director Of Programming/CDS:____Destiney / Lester Phone#:___[phone] Exercise your independent professional judgment when responding to this query. Questions asked do not imply a particular answer is desired or expected. We greatly appreciate your clarification on this issue. Clinical Documentation States: 72 year old male was admitted on 06/04/17 The discharge summary (Dr. Johnson) states " Patient is a 72 years old male with past medical history atrial fib, CAD, diabetes, dialysis, CVA, ESRD, hypertension and PVD who presents to the Emergency department for lower abdominal pain, nausea and vomiting Acute gastritis " The cardiology progress note (Dr. Friedman 06/07/17) states " 1. Acute abdominal pain resolved.probably secondary to mesenteric ischemia " Given the above clinical scenario can you please provide an appropriate diagnosis based on your knowledge of the patient: PHYSICIAN RESPONSE: Please clarify the etiology of abdominal pain: ___please refer this query to dr friedman, I have documented my own medical decision making Present on Admission: [ x] Yes (Y) [ ] Clinically undeterminable (W) [ ]No(N) Please also document response in your Progress Notes and/or Discharge Summary and indicate if the condition was present on admission. MTDD
--- NOTE | 2017-06-22 12:48 | Query- Present on Admission ---
Idalia Garay____Alex Date:____06/22/17 Billposting Supervisor/CDS: Destiney / Lester Phone#:___[phone] Exercise your independent professional judgment when responding to this query. Questions asked do not imply a particular answer is desired or expected. We greatly appreciate your clarification on this issue. Clinical Documentation States: 72 year old male was admitted on 06/04/17 The discharge summary (Dr. Johnson) states " Type II UT Patient will known chronic systolic heart failure who presented with dehydration and intractable vomiting Elevated troponin most likely due to that, cardiology input appreciated, no further workup indicated. " Clinical Findings Show: Based on the above clinical scenario and your knowledge of the patient's case please clarify if the diagnosis stated below was present on admission: Diagnosis: Type II MI Present on admission : [x ] Yes (Y) [ ] Clinically undeterminable(W) [ ] No(N) Please also document response in your Progress Notes and/or Discharge Summary and indicate if the condition was present on admission. TAIWO
== END 2017-06-07 15:03 | disposition home or self-care (01) | DRG 280 ==
LOC: ED 03:41 → 2B-ACE 09:09
PROVIDERS: ADMIT Internal Medicine; ATTEND Internal Medicine
PROC: 5A1D70Z Performance of Urinary Filtration, Intermittent, Less than 6 Hours Per Day (ICD-10-PCS; principal; 2017-06-05)
DX: I21.A1 Myocardial infarction type 2 (principal); N18.6 End stage renal disease; I50.22 Chronic systolic (congestive) heart failure; I13.2 Hypertensive heart and chronic kidney disease with heart failure and with stage 5 chronic kidney disease, or end stage renal disease; D68.59 Other primary thrombophilia; J90 Pleural effusion, not elsewhere classified; I42.8 Other cardiomyopathies; K29.00 Acute gastritis without bleeding; A08.4 Viral intestinal infection, unspecified; E11.51 Type 2 diabetes mellitus with diabetic peripheral angiopathy without gangrene; I16.0 Hypertensive urgency; I25.10 Atherosclerotic heart disease of native coronary artery without angina pectoris; E11.22 Type 2 diabetes mellitus with diabetic chronic kidney disease; R74.0 Nonspecific elevation of levels of transaminase and lactic acid dehydrogenase [LDH]; E86.0 Dehydration; K21.9 Gastro-esophageal reflux disease without esophagitis; M19.90 Unspecified osteoarthritis, unspecified site; J44.9 Chronic obstructive pulmonary disease, unspecified; K80.70 Calculus of gallbladder and bile duct without cholecystitis without obstruction; I48.2 Chronic atrial fibrillation; K42.9 Umbilical hernia without obstruction or gangrene; D69.6 Thrombocytopenia, unspecified; D63.1 Anemia in chronic kidney disease; Z99.2 Dependence on renal dialysis; Z86.73 Personal history of transient ischemic attack (TIA), and cerebral infarction without residual deficits; Z89.512 Acquired absence of left leg below knee; Z89.511 Acquired absence of right leg below knee; Z79.4 Long term (current) use of insulin; Z79.899 Other long term (current) drug therapy; I25.2 Old myocardial infarction; Z95.810 Presence of automatic (implantable) cardiac defibrillator; Z82.49 Family history of ischemic heart disease and other diseases of the circulatory system; Z83.3 Family history of diabetes mellitus
CPT/HCPCS: 36415; 71010; 76705; 78227; 78452; 80053; 80061; 82140; 82248; 82962; 83690; 83735; 83880; 84484; 85025; 85610; 85730; 86850; 86900; 86901; 93005; 93010; 93017; 93306; 94640; 96365; 96372; A9502; A9537; J1170; J1644; J1650; J1815; J2543; J2785; J2805; J7030

== ENCOUNTER 2017-06-23 12:09 | Inpatient (IN) | payer MEDICARE ==
[2017-06-23] MEDS ORDERED: ZOFRAN IV ONE (14:17)
--- NOTE | 2017-06-23 14:19 | Emergency Department Report ---
ED N/V/D HPI - General Chief complaint: Nausea/Vomiting/Diarrhea Stated complaint: N/V Time Seen by Provider: 06/23/17 14:16 Source: patient, EMS Mode of arrival: Stretcher Limitations: Language Barrier (PT WITH AIGNIFICANT SLURRED SPEECH), Physical Limitation - History of Present Illness Initial comments: 72 YO MALE WHO WAS AT DIALYSIS AND WAS BEING DIALYZED AND BEGAN TO VOMIT. PT WAS RECENTLY D/C FROM THE HOSPITAL WITH TWO WEEKS FOR NAUSEA AND VOMITING. HE WAS ONLY DIALYZED FOR 10 MINUTES BEFORE HE BEGAN VOMITING AGAIN. HE RELATED THAT RIGHT AFTER HIS D/C FROM THE HOSPITAL THE VOMITING RETURNED AND HAS BECOME A CHRONIC PROBLEM. PT GIVEN ZOFRAN BY EMS WHICH STOPPED THE VOMITING. HE HAS HAD NOT FURTHER EPISODES HERE IN THE ED. 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 complaint: nausea, vomiting, abdominal pain -: Gradual Description of Vomiting: food contents Associated Abdominal Pain: Yes Location: diffuse Radiation: none - Related Data Home Medications Medication Instructions Recorded Confirmed Last Taken Insulin Aspart [NovoLOG Flexpen] 10 units SQ BID 06/02/17 06/04/17 06/01/17 Losartan [Cozaar] 50 mg PO QDAY 06/02/17 06/04/17 06/01/17 Simvastatin [Zocor TAB] 10 mg PO QHS 06/02/17 06/04/17 06/01/17 ALBUTEROL Inhaler [ProAir HFA 1 puff PO QDAY PRN 06/04/17 06/04/17 Unknown Inhaler] ALBUTEROL NEB's [Proventil 0.083% 3 ml INHALATION TID 06/04/17 06/04/17 Unknown NEBS] Tiotropium [place] [Spiriva] 1 puff PO QDAY 06/04/17 06/04/17 Unknown Previous Rx's Medication Instructions Recorded Last Taken Type Apixaban [Eliquis] 5 mg PO BID tablet 06/03/17 Unknown Rx Carvedilol [Coreg] 25 mg PO BID tablet 06/03/17 Unknown Rx Cinacalcet [Sensipar] 30 mg PO QDAY tablet 06/03/17 Unknown Rx Furosemide [Lasix TAB] 40 mg PO QDAY tablet 06/03/17 Unknown Rx Aspirin EC [Aspirin Enteric Coated 81 mg PO QDAY #30 tablet. 06/07/17 Unknown Rx TAB] Ondansetron [Zofran Odt] 4 mg PO Q8HR #30 tab.rapdis 06/07/17 Unknown Rx Allergies Allergy/AdvReac Type Severity Reaction Status Date / Time No Known Allergies Allergy Verified 12/17/16 10:26 ED Review of Systems ROS: Stated complaint: N/V Other details as noted in HPI Constitutional: denies: chills, fever Eyes: denies: eye pain, eye discharge, vision change ENT: denies: ear pain, throat pain Respiratory: denies: cough, shortness of breath, wheezing Cardiovascular: denies: chest pain, palpitations Endocrine: no symptoms reported Gastrointestinal: abdominal pain. denies: diarrhea Genitourinary: denies: urgency, dysuria Musculoskeletal: other (SWELLING IN EXTREMITIES). denies: back pain, joint swelling, arthralgia Skin: denies: rash, lesions Neurological: other (DYSARTHRIC SPEECH). 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 legally blind - Surgical History Past Surgical History?: Yes Hx Open Heart Surgery: No Hx Internal Defibrillator: Yes (2004, 2013) Additional Surgical History: bilateral BKA. FISTULA RIGHT FOREARM. HERNIA REPAIR - Social History Smoking Status: Former Smoker - Medications Home Medications: Home Medications Medication Instructions Recorded Confirmed Last Taken Type Insulin Aspart [NovoLOG Flexpen] 10 units SQ BID 06/02/17 06/04/17 06/01/17 History Losartan [Cozaar] 50 mg PO QDAY 06/02/17 06/04/17 06/01/17 History Simvastatin [Zocor TAB] 10 mg PO QHS 06/02/17 06/04/17 06/01/17 History Apixaban [Eliquis] 5 mg PO BID tablet 06/03/17 06/04/17 Unknown Rx Carvedilol [Coreg] 25 mg PO BID tablet 06/03/17 06/04/17 Unknown Rx Cinacalcet [Sensipar] 30 mg PO QDAY tablet 06/03/17 06/04/17 Unknown Rx Furosemide [Lasix TAB] 40 mg PO QDAY tablet 06/03/17 06/04/17 Unknown Rx ALBUTEROL Inhaler [ProAir HFA 1 puff PO QDAY PRN 06/04/17 06/04/17 Unknown History Inhaler] ALBUTEROL NEB's [Proventil 0.083% 3 ml INHALATION TID 06/04/17 06/04/17 Unknown History NEBS] Tiotropium [place] [Spiriva] 1 puff PO QDAY 06/04/17 06/04/17 Unknown History Aspirin EC [Aspirin Enteric Coated 81 mg PO QDAY #30 tablet. 06/07/17 Unknown Rx TAB] Ondansetron [Zofran Odt] 4 mg PO Q8HR #30 tab.rapdis 06/07/17 Unknown Rx ED Physical Exam - General Limitations: Physical Limitation General appearance: alert, in no apparent distress - Head Head exam: Present: atraumatic, normocephalic - Eye Eye exam: Present: normal appearance, EOMI - ENT ENT exam: Present: mucous membranes moist, other (MULTIP[LE MISSING TEETH) - Neck Neck exam: Present: normal inspection - Respiratory Respiratory exam: Present: normal lung sounds bilaterally. Absent: respiratory distress - Cardiovascular Cardiovascular Exam: Present: regular rate, normal rhythm. Absent: systolic murmur, diastolic murmur, rubs, gallop - GI/Abdominal GI/Abdominal exam: Present: soft, tenderness (DIFFUSE,MILD, EDEMA ), normal bowel sounds - Rectal Rectal exam: Present: deferred - Extremities Exam Extremities exam: Present: pedal edema (BILATERAL 3+ PITTING EDEMA TO ABDOMEN), other (BILATERAL BELOW THE KNEE AMPUTATION) - Back Exam Back exam: Present: normal inspection, full ROM - Neurological Exam Neurological exam: Present: alert, oriented X3, other (DYSARTHRIC SPEECH) - Psychiatric Psychiatric exam: Present: normal affect, normal mood - Skin Skin exam: Present: warm, dry, intact, normal color. Absent: rash ED Course Vital Signs 12/19/17 12/19/17 12/19/17 12:24 13:12 15:55 Pulse Rate 66 65 62 Respiratory 20 18 16 Rate Blood Pressure 144/73 151/65 Blood Pressure 162/61 [Left] O2 Sat by Pulse 97 97 97 Oximetry ED Medical Decision Making - Lab Data Result diagrams: 06/23/17 14:45 06/23/17 15:44 Critical care attestation.: If time is entered above; I have spent that time in minutes in the direct care of this critically ill patient, excluding procedure time. ED Disposition Condition: Stable Referrals: LEBRON ROGER MD [Primary Care Provider] - 3-5 Days
[2017-06-23 15:15] LABS: Eosinophils % (Auto) 3.8 % (0.0-4.3); Hematocrit 33.2 % (35.5-45.6); Hemoglobin 10.5 gm/dl (11.8-15.2); Mean Corpuscular HGB Conc 32 % (32-34); Mean Corpuscular Hemoglobin 30 pg (28-32); Mean Corpuscular Volume 96 fl (84-94); Red Blood Count 3.46 M/mm3 (3.65-5.03); White Blood Count 6.3 K/mm3 (4.5-11.0)
[2017-06-23 15:22] LABS: Creatine Kinase MB 2.5 ng/mL (0.0-4.0); Red Cell Distribution Width 21.3 % (13.2-15.2)
[2017-06-23 15:23] LABS: Albumin 3.8 g/dL (3.9-5); Albumin/Globulin Ratio 1.1 %; Anion Gap 26 mmol/L; BUN/Creatinine Ratio 5; Blood Urea Nitrogen 38 mg/dL (9-20); Calcium 8.9 mg/dL (8.4-10.2); Carbon Dioxide 26 mmol/L (22-30); Chloride 97.6 mmol/L (98-107); Glucose 164 mg/dL (75-100); Sodium 142 mmol/L (137-145); Total Protein 7.3 g/dL (6.3-8.2)
[2017-06-23 15:35] LABS: Cholesterol 103 mg/dL (50-199); HDL Cholesterol 50 mg/dL (40-59); LDL Cholesterol,Direct 40 mg/dL (50-130); Potassium 7.3 mmol/L (3.6-5.0); Triglycerides 67 mg/dL (2-149)
[2017-06-23 15:38] LABS: Alanine Aminotransferase 17 units/L (7-56); Alkaline Phosphatase 147 units/L (35-129); Creatine Kinase 153 units/L (55-170)
[2017-06-23 16:32] LABS: Platelet Count 117 K/mm3 (140-440)
[2017-06-23] MEDS ORDERED: PROVENTIL IH PRN (17:11)
[2017-06-23] MEDS ORDERED: ZOFRAN IV PRN (17:11)
--- NOTE | 2017-06-23 17:17 | History and Physical Report ---
History of Present Illness Chief complaint: I got sick in dialysis History of present illness: 72 YO Male with HTN, CVA, OH, CHF, DM, GERD, ESRD on HD(T,R,Sa), OA, Asthma, COPD, presents to ED for evaluation. Pt states that he was in his usual state of health and went to his scheduled dialysis session. Pt states that he underwent dialysis for about 10-15 minutes when he suddenly felt sick. Pt states that he felt dizzy, nauseated, and began to vomit. Pt denies fever, chills, CP, Palpitations, Syncope, BRBPR, Skin rash, productive cough or recent ill contacts. Pt seen and evaluated in ED and treated with supportive care and anti emetic therapy. Pt also found to have fluid overload after incomplete dialysis. Nephrology team consulted in ED. Past History Past Medical History: atrial fib, CAD, diabetes, ESRD, hypertension, hyperlipidemia Past Surgical History: hernia repair, Other ( bilateral BKA. FISTULA RIGHT FOREARM. HERNIA REPAIR) Social history: single. denies: smoking, alcohol abuse, prescription drug abuse Family history: diabetes, hypertension Medications and Allergies Allergies Allergy/AdvReac Type Severity Reaction Status Date / Time No Known Allergies Allergy Verified 12/17/16 10:26 Home Medications Medication Instructions Recorded Confirmed Last Taken Type Insulin Aspart [NovoLOG Flexpen] 10 units SQ BID 06/02/17 06/23/17 06/01/17 History Losartan [Cozaar] 50 mg PO DAILY 06/02/17 06/24/17 06/01/17 History Simvastatin [Zocor TAB] 10 mg PO QHS 06/02/17 06/23/17 06/01/17 History Apixaban [Eliquis] 5 mg PO BID tablet 06/03/17 06/23/17 Unknown Rx Carvedilol [Coreg] 25 mg PO BID tablet 06/03/17 06/23/17 Unknown Rx Tiotropium [place] [Spiriva] 1 puff PO DAILY 06/04/17 06/23/17 Unknown History Albuterol Sulfate [Albuterol 0.63% 0.63 mg IH TID PRN 06/23/17 06/23/17 Unknown History NEBS] Apixaban [Eliquis] 5 mg PO BID 06/23/17 06/23/17 Unknown History Cinacalcet HCl [Sensipar] 60 mg PO DAILY 06/23/17 06/23/17 Unknown History Esomeprazole Magnesium [NexIUM] 40 mg PO BID 06/23/17 06/23/17 Unknown History Furosemide [Lasix TAB] 40 mg PO DAILY 06/23/17 06/23/17 Unknown History Active Meds: Active Medications Acetaminophen (Tylenol) 650 mg PO Q4H PRN PRN Reason: Pain MILD(1-3)/Fever >100.5/DYE Albuterol (Proventil) 2.5 mg IH Q4HRT PRN PRN Reason: Shortness Of Breath Albuterol (Proventil) 2.5 mg IH TID GRACIE Apixaban (Eliquis) 5 mg PO BID GRACIE PRN Reason: Protocol Aspirin (Halfprin Ec) 81 mg PO QDAY GRACIE Carvedilol (Coreg) 25 mg PO BID [facility] Cinacalcet (Sensipar) 30 mg PO QDAY [facility] Furosemide (Lasix) 20 mg IV 0600,1800 [facility] Losartan Potassium (Cozaar) 50 mg PO QDAY [facility] Miscellaneous Medication (Insulin Aspart [Novolog Flexpen]) 10 units SQ BID [facility] Miscellaneous Medication (Simvastatin) 10 mg PO QHS [facility] Ondansetron HCl (Zofran) 4 mg IV Q8H PRN PRN Reason: N/V unrelieved by Tod Ondansetron HCl (Zofran Odt) 4 mg PO Q8HR [facility] Review of Systems Constitutional: no weight loss, no weight gain, no fever, no chills Ears, nose, mouth and throat: no ear pain, no ear discharge, no tinnitis, no decreased hearing, no nose pain, no nasal congestion Cardiovascular: no chest pain, no orthopnea, no palpitations, no rapid/ irregular heart beat Respiratory: no cough, no cough with sputum, no excessive sputum Gastrointestinal: nausea, vomiting, no change in bowel habits, no hematemesis, no coffee ground emesis, no hematochezia, no loss of appetite Genitourinary Male: no hematuria, no flank pain, no discharge, no urinary frequency, no urinary hesitancy Rectal: no pain, no incontinence, no bleeding Musculoskeletal: no neck stiffness, no neck pain, no shooting arm pain, no arm numbness/tingling, no low back pain, no shooting leg pain Integumentary: no rash, no pruritis, no redness Neurological: no head injury, no weakness, no parathesias, no numbness, no tingling, no syncope, no vertigo Psychiatric: no anxiety, no memory loss, no change in sleep habits Endocrine: no cold intolerance, no heat intolerance, no polyphagia, no excessive thirst, no polydipsia Hematologic/Lymphatic: no easy bruising, no easy bleeding Allergic/Immunologic: no urticaria, no allergic rhinitis, no wheezing Exam - Constitutional Vitals: Temp Pulse Resp BP Pulse Ox 62 16 151/65 97 06/23/17 15:55 06/23/17 15:55 06/23/17 15:55 06/23/17 15:55 General appearance: Present: mild distress - EENT Eyes: Present: PERRL ENT: hearing intact, clear oral mucosa - Neck Neck: Present: supple, normal ROM - Respiratory Respiratory effort: normal Respiratory: bilateral: CTA - Cardiovascular Rhythm: irregularly irregular Heart Sounds: Present: S1 & S2. Absent: rub, click - Extremities Extremities: pulses symmetrical, No edema Peripheral Pulses: within normal limits - Abdominal General gastrointestinal: Present: soft, non-tender, non-distended, normal bowel sounds Male genitourinary: Present: normal - Integumentary Integumentary: Present: clear, warm, dry - Musculoskeletal Musculoskeletal: gait normal, strength equal bilaterally - Psychiatric Psychiatric: appropriate mood/affect, intact judgment & insight - Neurologic Neurologic: CNII-XII intact, moves all extremities Results - Labs CBC & Chem 7: 06/24/17 17:35 06/24/17 17:35 Labs: Abnormal lab results 06/23/17 06/23/17 06/23/17 Range/Units 14:45 14:45 15:44 RBC 3.46 L (3.65-5.03) M/mm3 Hgb 10.5 L (11.8-15.2) gm/dl Hct 33.2 L (35.5-45.6) % MCV 96 H (84-94) fl RDW 21.3 H (13.2-15.2) % Plt Count 117 L (140-440) K/mm3 Lymph % (Auto) 12.6 L (13.4-35.0) % [place] % (Auto) 11.3 H (0.0-7.3) % Lymph # 0.8 L (1.2-5.4) K/mm3 Seg Neutrophils % 71.3 H (40.0-70.0) % Potassium 7.3 H* 5.1 H D (3.6-5.0) mmol/L Chloride 97.6 L (98-107) mmol/L BUN 38 H (9-20) mg/dL Creatinine 7.8 H (0.8-1.5) mg/dL Glucose 164 H (75-100) mg/dL Total Bilirubin 1.40 H (0.1-1.2) mg/dL AST 58 H (5-40) units/L Alkaline Phosphatase 147 H (35-129) units/L Troponin T 0.077 H (0.00-0.029) ng/mL NT-Pro-B Natriuret Pep > 35618 H (0-900) pg/mL Albumin 3.8 L (3.9-5) g/dL LDL Cholesterol Direct 40 L (50-130) mg/dL Assessment and Plan - Patient Problems (1) Dialysis disequilibrium syndrome Current Visit: Yes Status: Acute Plan to address problem: Anti emetic therapy, supportive care, fall precautions, neuro checks, (2) Accelerated hypertension Current Visit: Yes Status: Acute Plan to address problem: Monitor bp q shift, IV hydralazine prn for systolic above 155. (3) CHF (congestive heart failure) Current Visit: Yes Status: Acute Qualifiers: Congestive heart failure type: systolic Congestive heart failure chronicity : acute on chronic Qualified Code(s): I50.23 - Acute on chronic systolic ( congestive) heart failure Plan to address problem: Fluid restriction, diuresis, monitor uop q shift, nephrology consulted for dialysis, afterload reduction, (4) ESRD (end stage renal disease) Current Visit: Yes Status: Acute Plan to address problem: Nephrology consulted for dialysis as indicated. (5) DVT prophylaxis Current Visit: No Status: Acute
[2017-06-23] MEDS ORDERED: NACL 0.9% 100 ML IV PRN (18:11)
[2017-06-23] MEDS: LASIX IV SCH (19:06)
[2017-06-23] MEDS ORDERED: LASIX ONE (19:11)
[2017-06-23] MEDS: PROVENTIL IH SCH (19:33)
[2017-06-23] MEDS: PRAVACHOL PO SCH (21:56)
[2017-06-23] MEDS: ELIQUIS PO SCH (21:56)
[2017-06-23] MEDS: ZOFRAN ODT PO SCH (21:56)
[2017-06-23] MEDS: COREG PO SCH (21:58)
[2017-06-23] MEDS ORDERED: NON-FORMULARY (Insulin Aspart [Novolog Flexpen] 10 UNITS) SQ SCH (22:00)
[2017-06-23] MEDS ORDERED: NON-FORMULARY (Simvastatin 10 MG) PO SCH (22:00)
[2017-06-23] MEDS: NOVOLOG SUB-Q SCH (23:56)
[2017-06-24] MEDS: ZOFRAN ODT PO SCH ×3 (05:42→21:32)
[2017-06-24] MEDS: LASIX IV SCH ×2 (05:42→18:14)
[2017-06-24] MEDS: PROVENTIL IH SCH ×3 (08:14→21:30)
--- NOTE | 2017-06-24 08:49 | Progress Note ---
<DAVIN OH - Last Filed: 06/24/17 13:31> Assessment and Plan Assessment and plan: Patient is a 72 years old male with past medical history atrial fib, CAD, diabetes, dialysis, CVA, ESRD, hypertension and PVD who presents to the Emergency department for lower abdominal pain, nausea and vomiting for the past 2 days. End-stage renal disease on dialysis Nephrology Following Hyperkalemia Patient will have HD today that will correct it. Intractable nausea and vomiting Secondary Cholelithiasis US showed Cholelithiasis; no evidence of acute cholecystitis HIDA scan re revealed no evidence of acute cholecystitis Recent General Surgery recommended no surgical intervention Antiemetic Closely monitor electrolytes Chronic Transaminitis, elevated bilirubin bilirubin trending down Closely monitor liver function Diabetes mellitus Accu-Chek before meals and at bedtime Sliding scale insulin/NovoLog ADA carbohydrate consistent diet Hypertensive urgency Continue home antihypertensive medications Closely monitor blood pressure CAD with elevated troponins Troponin trending up Most likely due to ESRD Echocardiogram on 06/05/2017 with ef 25%-30% EKG sinus rhythm, no changes Recent normal stress test Afib Resume Eliquis DVT prophylaxis History Interval history: Patient denies abdominal pain,nausea and vomiting. Labs and nursing reviewed. Hospitalist Physical - Constitutional Vitals: Temp Pulse Resp BP Pulse Ox 97.9 F 55 L 20 151/65 100 06/24/17 08:11 06/24/17 08:11 06/24/17 08:11 06/24/17 08:11 06/24/17 08:11 General appearance: Present: no acute distress - EENT Eyes: Present: PERRL ENT: hearing intact - Neck Neck: Present: supple - Respiratory Respiratory effort: normal Respiratory: bilateral: CTA - Cardiovascular Rhythm: regular Heart Sounds: Present: S1 & S2 - Abdominal General gastrointestinal: soft, non-tender - Integumentary Integumentary: Present: clear, warm, dry - Psychiatric Psychiatric: appropriate mood/affect - Neurologic Neurologic: other (Bilateral BKA) - Allied Health Allied health notes reviewed: nursing Results - Labs CBC & Chem 7: 06/23/17 14:45 06/24/17 06:03 Labs: Laboratory Last Values WBC 6.3 K/mm3 (4.5-11.0) 06/23/17 14:45 RBC 3.46 M/mm3 (3.65-5.03) L 06/23/17 14:45 Hgb 10.5 gm/dl (11.8-15.2) L 06/23/17 14:45 Hct 33.2 % (35.5-45.6) L 06/23/17 14:45 MCV 96 fl (84-94) H 06/23/17 14:45 MCH 30 pg (28-32) 06/23/17 14:45 MCHC 32 % (32-34) 06/23/17 14:45 RDW 21.3 % (13.2-15.2) H 06/23/17 14:45 Plt Count 117 K/mm3 (140-440) L 06/23/17 14:45 Lymph % (Auto) 12.6 % (13.4-35.0) L 06/23/17 14:45 [place] % (Auto) 11.3 % (0.0-7.3) H 06/23/17 14:45 Eos % (Auto) 3.8 % (0.0-4.3) 06/23/17 14:45 Baso % (Auto) 1.0 % (0.0-1.8) 06/23/17 14:45 Lymph # 0.8 K/mm3 (1.2-5.4) L 06/23/17 14:45 [place] # 0.7 K/mm3 (0.0-0.8) 06/23/17 14:45 Eos # 0.2 K/mm3 (0.0-0.4) 06/23/17 14:45 Baso # 0.1 K/mm3 (0.0-0.1) 06/23/17 14:45 Seg Neutrophils % 71.3 % (40.0-70.0) H 06/23/17 14:45 Seg Neutrophils # 4.5 K/mm3 (1.8-7.7) 06/23/17 14:45 Sodium 142 mmol/L (137-145) 06/23/17 14:45 Potassium 5.1 mmol/L (3.6-5.0) H D 06/23/17 15:44 Chloride 97.6 mmol/L (98-107) L 06/23/17 14:45 Carbon Dioxide 26 mmol/L (22-30) 06/23/17 14:45 Anion Gap 26 mmol/L 06/23/17 14:45 BUN 38 mg/dL (9-20) H 06/23/17 14:45 Creatinine 7.8 mg/dL (0.8-1.5) H 06/23/17 14:45 Estimated GFR 8 ml/min 06/23/17 14:45 BUN/Creatinine Ratio 5 % 06/23/17 14:45 Glucose 45 mg/dL (75-100) L 06/24/17 06:03 POC Glucose 76 (70-105) 06/24/17 06:37 Calcium 8.9 mg/dL (8.4-10.2) 06/23/17 14:45 Total Bilirubin 1.40 mg/dL (0.1-1.2) H 06/23/17 14:45 AST 58 units/L (5-40) H 06/23/17 14:45 ALT 17 units/L (7-56) 06/23/17 14:45 Alkaline Phosphatase 147 units/L (35-129) H 06/23/17 14:45 Total Creatine Kinase 153 units/L (55-170) 06/23/17 14:45 CK-MB (CK-2) 2.5 ng/mL (0.0-4.0) 06/23/17 14:45 CK-MB (CK-2) Rel Index 1.6 (0-4) 06/23/17 14:45 Troponin T 0.077 ng/mL (0.00-0.029) H 06/23/17 14:45 NT-Pro-B Natriuret Pep > 80734 pg/mL (0-900) H 06/23/17 14:45 Total Protein 7.3 g/dL (6.3-8.2) 06/23/17 14:45 Albumin 3.8 g/dL (3.9-5) L 06/23/17 14:45 Albumin/Globulin Ratio 1.1 % 06/23/17 14:45 Triglycerides 67 mg/dL (2-149) 06/23/17 14:45 Cholesterol 103 mg/dL (50-199) 06/23/17 14:45 LDL Cholesterol Direct 40 mg/dL (50-130) L 06/23/17 14:45 HDL Cholesterol 50 mg/dL (40-59) 06/23/17 14:45 Cholesterol/HDL Ratio 2.06 % 06/23/17 14:45 Plasma/Serum Alcohol < 0.01 gm% (0-0.07) 06/23/17 17:27 <LEBRON CORDON - Last Filed: 06/24/17 17:21> Assessment and Plan Assessment and plan: [id number] I saw and evaluated the patient. I agree with the findings and the plan of care as documented in the Nurse Practitioner's~note, with the following corrections and additions. History Interval history: I saw and evaluated the patient. I agree with the findings and the plan of care as documented in the Nurse Practitioner's~note, with the following corrections and additions. Patient is 72 yo with ESRD on dialysis, presents with nausea, vomiting. Continue current management Hospitalist Physical - Constitutional Vitals: Temp Pulse Resp BP Pulse Ox 97.9 F 55 L 20 151/65 96 06/24/17 08:11 06/24/17 08:11 06/24/17 08:11 06/24/17 08:11 06/24/17 10:00 Results - Labs CBC & Chem 7: 06/23/17 14:45 06/24/17 06:03 Labs: Laboratory Last Values WBC 6.3 K/mm3 (4.5-11.0) 06/23/17 14:45 RBC 3.46 M/mm3 (3.65-5.03) L 06/23/17 14:45 Hgb 10.5 gm/dl (11.8-15.2) L 06/23/17 14:45 Hct 33.2 % (35.5-45.6) L 06/23/17 14:45 MCV 96 fl (84-94) H 06/23/17 14:45 MCH 30 pg (28-32) 06/23/17 14:45 MCHC 32 % (32-34) 06/23/17 14:45 RDW 21.3 % (13.2-15.2) H 06/23/17 14:45 Plt Count 117 K/mm3 (140-440) L 06/23/17 14:45 Lymph % (Auto) 12.6 % (13.4-35.0) L 06/23/17 14:45 [place] % (Auto) 11.3 % (0.0-7.3) H 06/23/17 14:45 Eos % (Auto) 3.8 % (0.0-4.3) 06/23/17 14:45 Baso % (Auto) 1.0 % (0.0-1.8) 06/23/17 14:45 Lymph # 0.8 K/mm3 (1.2-5.4) L 06/23/17 14:45 [place] # 0.7 K/mm3 (0.0-0.8) 06/23/17 14:45 Eos # 0.2 K/mm3 (0.0-0.4) 06/23/17 14:45 Baso # 0.1 K/mm3 (0.0-0.1) 06/23/17 14:45 Seg Neutrophils % 71.3 % (40.0-70.0) H 06/23/17 14:45 Seg Neutrophils # 4.5 K/mm3 (1.8-7.7) 06/23/17 14:45 Sodium 142 mmol/L (137-145) 06/23/17 14:45 Potassium 5.1 mmol/L (3.6-5.0) H D 06/23/17 15:44 Chloride 97.6 mmol/L (98-107) L 06/23/17 14:45 Carbon Dioxide 26 mmol/L (22-30) 06/23/17 14:45 Anion Gap 26 mmol/L 06/23/17 14:45 BUN 38 mg/dL (9-20) H 06/23/17 14:45 Creatinine 7.8 mg/dL (0.8-1.5) H 06/23/17 14:45 Estimated GFR 8 ml/min 06/23/17 14:45 BUN/Creatinine Ratio 5 % 06/23/17 14:45 Glucose 45 mg/dL (75-100) L 06/24/17 06:03 POC Glucose 114 (70-105) H 06/24/17 16:40 Calcium 8.9 mg/dL (8.4-10.2) 06/23/17 14:45 Total Bilirubin 1.40 mg/dL (0.1-1.2) H 06/23/17 14:45 AST 58 units/L (5-40) H 06/23/17 14:45 ALT 17 units/L (7-56) 06/23/17 14:45 Alkaline Phosphatase 147 units/L (35-129) H 06/23/17 14:45 Total Creatine Kinase 153 units/L (55-170) 06/23/17 14:45 CK-MB (CK-2) 2.5 ng/mL (0.0-4.0) 06/23/17 14:45 CK-MB (CK-2) Rel Index 1.6 (0-4) 06/23/17 14:45 Troponin T 0.077 ng/mL (0.00-0.029) H 06/23/17 14:45 NT-Pro-B Natriuret Pep > 27606 pg/mL (0-900) H 06/23/17 14:45 Total Protein 7.3 g/dL (6.3-8.2) 06/23/17 14:45 Albumin 3.8 g/dL (3.9-5) L 06/23/17 14:45 Albumin/Globulin Ratio 1.1 % 06/23/17 14:45 Triglycerides 67 mg/dL (2-149) 06/23/17 14:45 Cholesterol 103 mg/dL (50-199) 06/23/17 14:45 LDL Cholesterol Direct 40 mg/dL (50-130) L 06/23/17 14:45 HDL Cholesterol 50 mg/dL (40-59) 06/23/17 14:45 Cholesterol/HDL Ratio 2.06 % 06/23/17 14:45 Plasma/Serum Alcohol < 0.01 gm% (0-0.07) 06/23/17 17:27
[2017-06-24] MEDS: NOVOLOG SUB-Q SCH ×2 (10:00→22:56)
[2017-06-24] MEDS: COREG PO SCH ×2 (10:00→21:27)
--- NOTE | 2017-06-24 10:46 | Consultation ---
History of Present Illness - Reason for Consult Consult date: 06/24/17 end stage renal disease, hyperkalemia Requesting physician: ANTONIO MOULTON - History of Present Illness This is a 72-year-old male with a history of end-stage renal disease, diabetes mellitus, hypertension and previous cerebrovascular accident and peripheral vascular disease s/p b/l BKA, who was admitted after presenting to ER for nausea and vomiting during HD. Pt was only dialyzed for 10min before above symptoms started. Pt with recent hospitalization for similar symptoms, and has GI f/u. Nausea improved with zofran in ER. Renal consult requested for management of ESRD/HD. Past History Past Medical History: atrial fib, CAD, diabetes, ESRD, hypertension, PVD Past Surgical History: Other (AV fistula placements right upper extremity, AICD in , bilateral below-knee amputations) Social history: denies: smoking, alcohol abuse, prescription drug abuse, IV drug use Family history: diabetes, hypertension Medications and Allergies Allergies Allergy/AdvReac Type Severity Reaction Status Date / Time No Known Allergies Allergy Verified 12/17/16 10:26 Home Medications Medication Instructions Recorded Confirmed Last Taken Type Insulin Aspart [NovoLOG Flexpen] 10 units SQ BID 06/02/17 06/23/17 06/01/17 History Losartan [Cozaar] 50 mg PO DAILY 06/02/17 06/04/17 06/01/17 History Simvastatin [Zocor TAB] 10 mg PO QHS 06/02/17 06/23/17 06/01/17 History Apixaban [Eliquis] 5 mg PO BID tablet 06/03/17 06/23/17 Unknown Rx Carvedilol [Coreg] 25 mg PO BID tablet 06/03/17 06/23/17 Unknown Rx Tiotropium [place] [Spiriva] 1 puff PO DAILY 06/04/17 06/23/17 Unknown History Albuterol Sulfate [Albuterol 0.63% 0.63 mg IH TID PRN 06/23/17 06/23/17 Unknown History NEBS] Apixaban [Eliquis] 5 mg PO BID 06/23/17 06/23/17 Unknown History Cinacalcet HCl [Sensipar] 60 mg PO DAILY 06/23/17 06/23/17 Unknown History Esomeprazole Magnesium [NexIUM] 40 mg PO BID 06/23/17 06/23/17 Unknown History Furosemide [Lasix TAB] 40 mg PO DAILY 06/23/17 06/23/17 Unknown History Active Meds: Active Medications Acetaminophen (Tylenol) 650 mg PO Q4H PRN PRN Reason: Pain MILD(1-3)/Fever >100.5/DYE Albuterol (Proventil) 2.5 mg IH Q4HRT PRN PRN Reason: Shortness Of Breath Albuterol (Proventil) 2.5 mg IH TID [facility] Last Admin: 06/24/17 08:14 Dose: 2.5 mg Apixaban (Eliquis) 5 mg PO BID [facility] PRN Reason: Protocol Last Admin: 06/23/17 21:56 Dose: 5 mg Aspirin (Halfprin Ec) 81 mg PO QDAY [facility] Carvedilol (Coreg) 25 mg PO BID [facility] Last Admin: 06/23/17 21:58 Dose: 25 mg Cinacalcet (Sensipar) 30 mg PO QDAY [facility] Furosemide (Lasix) 20 mg IV 0600,1800 [facility] Last Admin: 06/24/17 05:42 Dose: 20 mg Sodium Chloride (Nacl 0.9%) 100 mls @ 999 mls/hr IV CHAZ PRN PRN Reason: Hypotension Insulin Aspart (Novolog) 10 units SUB-Q BID [facility] Last Admin: 06/23/17 23:56 Dose: 10 units Losartan Potassium (Cozaar) 50 mg PO QDAY [facility] Ondansetron HCl (Zofran) 4 mg IV Q8H PRN PRN Reason: N/V unrelieved by Tod Ondansetron HCl (Zofran Odt) 4 mg PO Q8HR [facility] Last Admin: 06/24/17 05:42 Dose: 4 mg Pravastatin Sodium (Pravachol) 20 mg PO QHS [facility] Last Admin: 06/23/17 21:56 Dose: 20 mg Review of Systems All systems: negative Constitutional: weakness Gastrointestinal: abdominal pain, nausea, vomiting Exam - Vital Signs Vital signs: Vital Signs Pulse Resp BP Pulse Ox 66 20 144/73 97 06/23/17 12:24 06/23/17 12:24 06/23/17 12:24 06/23/17 12:24 - General Appearance General appearance: well-developed, well-nourished, appears stated age EENT: ATNC, PERRL, mucous membranes moist Neck: Present: neck supple Respiratory: Clear to Ascultation Heart: regular, S1S2 Gastrointestinal: Present: normoactive bowel sounds Integumentary: no rash, other (b/l BKA ) Neurologic: no focal deficit, alert and oriented x3, strength 5/5, CN 3-12 intact Psychiatric: mood/affect appropriate, cooperative Results - Lab Results 06/23/17 14:45 06/24/17 06:03 Most recent lab results Calcium 8.9 mg/dL (8.4-10.2) 06/23/17 14:45 Laboratory Tests 06/23/17 14:45 Sodium 142 Potassium 7.3 H* Chloride 97.6 L Carbon Dioxide 26 Anion Gap 26 BUN 38 H Creatinine 7.8 H Estimated GFR 8 BUN/Creatinine Ratio 5 Glucose 164 H Calcium 8.9 Total Bilirubin 1.40 H AST 58 H ALT 17 Alkaline Phosphatase 147 H Total Creatine Kinase 153 CK-MB (CK-2) 2.5 CK-MB (CK-2) Rel Index 1.6 Troponin T 0.077 H NT-Pro-B Natriuret Pep > 24253 H Total Protein 7.3 Albumin 3.8 L Albumin/Globulin Ratio 1.1 Triglycerides 67 Cholesterol 103 LDL Cholesterol Direct 40 L HDL Cholesterol 50 Cholesterol/HDL Ratio 2.06 Assessment and Plan - Patient Problems (1) ESRD needing dialysis Current Visit: No Status: Acute Plan to address problem: HD today, the to resume TTS schedule (2) Hyperkalemia Current Visit: No Status: Acute Plan to address problem: to be corrected with HD, cont 2g K renal diet (3) Hypertensive chronic kidney disease with stage 5 chronic kidney disease or end stage renal disease Current Visit: No Status: Acute Plan to address problem: resume home BP meds, will adjust if BP remains uncontrolled after HD (4) Nausea & vomiting Current Visit: No Status: Acute Plan to address problem: zofran prn, GI follow up (5) Anemia due to chronic kidney disease Current Visit: No Status: Chronic Plan to address problem: hb at target, to cont mircera at outpatient HD clinic
[2017-06-24] MEDS ORDERED: NACL 0.9 (PRIMING MACHINE ONLY DIALYSIS) MC ONE (18:06)
[2017-06-24] MEDS: HALFPRIN EC PO SCH (18:11)
[2017-06-24] MEDS: COZAAR PO SCH (18:11)
[2017-06-24] MEDS: SENSIPAR PO SCH (18:11)
[2017-06-24] MEDS: ELIQUIS PO SCH ×2 (18:13→21:27)
[2017-06-24 18:39] LABS: Hematocrit 34.1 % (35.5-45.6); Hemoglobin 10.9 gm/dl (11.8-15.2); Mean Corpuscular Volume 95 fl (84-94); Red Blood Count 3.58 M/mm3 (3.65-5.03); White Blood Count 4.7 K/mm3 (4.5-11.0)
[2017-06-24 18:40] LABS: Mean Corpuscular HGB Conc 32 % (32-34); Mean Corpuscular Hemoglobin 31 pg (28-32); Platelet Count 36 K/mm3 (140-440); Red Cell Distribution Width 20.4 % (13.2-15.2)
[2017-06-24 18:52] LABS: Creatine Kinase MB 2.6 ng/mL (0.0-4.0)
[2017-06-24 18:54] LABS: Calcium 9.2 mg/dL (8.4-10.2); Chloride 94.1 mmol/L (98-107); Potassium 4.2 mmol/L (3.6-5.0)
[2017-06-24] MEDS: PRAVACHOL PO SCH (21:27)
[2017-06-25] MEDS: LASIX IV SCH ×2 (06:39→17:27)
[2017-06-25] MEDS: ZOFRAN ODT PO SCH ×3 (06:39→21:51)
--- NOTE | 2017-06-25 08:56 | Progress Note ---
Hospitalist Physical - Constitutional Vitals: Temp Pulse Resp BP Pulse Ox 98.0 F 60 18 157/67 100 06/25/17 07:53 06/25/17 07:53 06/25/17 07:53 06/25/17 07:53 06/25/17 07:53 General appearance: Present: mild distress Results - Labs CBC & Chem 7: 06/24/17 17:35 06/24/17 17:35 Labs: Laboratory Last Values WBC 4.7 K/mm3 (4.5-11.0) 06/24/17 17:35 RBC 3.58 M/mm3 (3.65-5.03) L 06/24/17 17:35 Hgb 10.9 gm/dl (11.8-15.2) L 06/24/17 17:35 Hct 34.1 % (35.5-45.6) L 06/24/17 17:35 MCV 95 fl (84-94) H 06/24/17 17:35 MCH 31 pg (28-32) 06/24/17 17:35 MCHC 32 % (32-34) 06/24/17 17:35 RDW 20.4 % (13.2-15.2) H 06/24/17 17:35 Plt Count 36 K/mm3 (140-440) L 06/24/17 17:35 Lymph % (Auto) 12.6 % (13.4-35.0) L 06/23/17 14:45 [place] % (Auto) 11.3 % (0.0-7.3) H 06/23/17 14:45 Eos % (Auto) 3.8 % (0.0-4.3) 06/23/17 14:45 Baso % (Auto) 1.0 % (0.0-1.8) 06/23/17 14:45 Lymph # 0.8 K/mm3 (1.2-5.4) L 06/23/17 14:45 [place] # 0.7 K/mm3 (0.0-0.8) 06/23/17 14:45 Eos # 0.2 K/mm3 (0.0-0.4) 06/23/17 14:45 Baso # 0.1 K/mm3 (0.0-0.1) 06/23/17 14:45 Seg Neutrophils % 71.3 % (40.0-70.0) H 06/23/17 14:45 Seg Neutrophils # 4.5 K/mm3 (1.8-7.7) 06/23/17 14:45 Sodium 141 mmol/L (137-145) 06/24/17 17:35 Potassium 4.2 mmol/L (3.6-5.0) 06/24/17 17:35 Chloride 94.1 mmol/L (98-107) L 06/24/17 17:35 Carbon Dioxide 26 mmol/L (22-30) 06/24/17 17:35 Anion Gap 25 mmol/L 06/24/17 17:35 BUN 21 mg/dL (9-20) H 06/24/17 17:35 Creatinine 5.2 mg/dL (0.8-1.5) H 06/24/17 17:35 Estimated GFR 13 ml/min 06/24/17 17:35 BUN/Creatinine Ratio 4 % 06/24/17 17:35 Glucose 140 mg/dL (75-100) H 06/24/17 17:35 POC Glucose 133 (70-105) H 06/25/17 06:26 Calcium 9.2 mg/dL (8.4-10.2) 06/24/17 17:35 Total Bilirubin 1.40 mg/dL (0.1-1.2) H 06/23/17 14:45 AST 58 units/L (5-40) H 06/23/17 14:45 ALT 17 units/L (7-56) 06/23/17 14:45 Alkaline Phosphatase 147 units/L (35-129) H 06/23/17 14:45 Total Creatine Kinase 103 units/L (55-170) 06/24/17 17:35 CK-MB (CK-2) 2.6 ng/mL (0.0-4.0) 06/24/17 17:35 CK-MB (CK-2) Rel Index 2.5 (0-4) 06/24/17 17:35 Troponin T 0.097 ng/mL (0.00-0.029) H 06/24/17 17:35 NT-Pro-B Natriuret Pep > 41615 pg/mL (0-900) H 06/23/17 14:45 Total Protein 7.3 g/dL (6.3-8.2) 06/23/17 14:45 Albumin 3.8 g/dL (3.9-5) L 06/23/17 14:45 Albumin/Globulin Ratio 1.1 % 06/23/17 14:45 Triglycerides 67 mg/dL (2-149) 06/23/17 14:45 Cholesterol 103 mg/dL (50-199) 06/23/17 14:45 LDL Cholesterol Direct 40 mg/dL (50-130) L 06/23/17 14:45 HDL Cholesterol 50 mg/dL (40-59) 06/23/17 14:45 Cholesterol/HDL Ratio 2.06 % 06/23/17 14:45 Plasma/Serum Alcohol < 0.01 gm% (0-0.07) 06/23/17 17:27
[2017-06-25] MEDS: COREG PO SCH ×2 (09:33→21:51)
[2017-06-25] MEDS: COZAAR PO SCH (09:33)
[2017-06-25] MEDS: SENSIPAR PO SCH (09:33)
[2017-06-25] MEDS: HALFPRIN EC PO SCH (09:34)
[2017-06-25] MEDS: ELIQUIS PO SCH ×2 (09:34→21:51)
[2017-06-25] MEDS: NOVOLOG SUB-Q SCH ×2 (09:36→22:45)
[2017-06-25] MEDS: PROVENTIL IH SCH ×3 (09:59→20:01)
--- NOTE | 2017-06-25 14:48 | Discharge Summary ---
Providers - Providers Date of Admission: 06/23/17 17:11 Date of discharge: 06/25/17 Attending physician: LEBRON CORDON 06/23/17 17:13 Consult to Physician [CONS] Routine Consulting Provider: LAVINIA ABEBE Reason For Exam: esrd Place consult to:: nephrology Notified:: yes 06/23/17 17:46 Consult to Physician [CONS] Stat Consulting Provider: DALLIN SWENSON Reason For Exam: NEED FOR DIALYSIS Place consult to:: ED Notified:: PHONE Primary care physician: LEBRON ROGER Hospitalization Reason for admission: intractable nausea and vomiting Condition: Good Hospital course: Patient is a 72 years old male with past medical history atrial fib, CAD, diabetes, dialysis, CVA, ESRD, hypertension and PVD who presents to the Emergency department for lower abdominal pain, nausea and vomiting for the past 2 days. Patient diagnosis is interested this stage renal disease, hyperkalemia, interactive nausea, Chronic Transaminitis, hypertensive urgency and elevated troponin. He received emergent dialysis, during which excess fluid was removed, and his hyperkalemia corrected with HD, he was restarted on the rest of his meds. Patient nausea and vomiting improved and tolerated his diet well. He was treated with IV fluid hydration. Patient is clinically improved. Patient advised to follow-up with her primary care provider. Discharge Disgnosed End-stage renal disease on dialysis Hyperkalemia Intractable nausea and vomiting Chronic Transaminitis, Diabetes mellitus Hypertensive urgency CAD with elevated troponins Afib Disposition: TO HOME OR SELFCARE Core Measure Documentation - Palliative Care Palliative Care/ Comfort Measures: Not Applicable - Core Measures Any of the following diagnoses?: none Exam - Constitutional Vitals: Temp Pulse Resp BP Pulse Ox 98.0 F 59 L 18 157/67 100 06/25/17 07:53 06/25/17 10:10 06/25/17 10:10 06/25/17 09:33 06/25/17 10:00 General appearance: Present: no acute distress - EENT Eyes: Present: PERRL ENT: hearing intact - Neck Neck: Present: supple - Respiratory Respiratory effort: normal Respiratory: bilateral: CTA - Cardiovascular Rhythm: regular Heart Sounds: Present: S1 & S2 - Extremities Extremity abnormal: other (Bilateral BKA) - Abdominal General gastrointestinal: Present: soft, non-tender Male genitourinary: Present: deferred - Rectal Rectal Exam: deferred - Integumentary Integumentary: Present: clear, warm, dry - Musculoskeletal Musculoskeletal: strength equal bilaterally - Psychiatric Psychiatric: appropriate mood/affect - Neurologic Neurologic: moves all extremities - Allied Health Allied health notes reviewed: nursing Plan Diet: low fat, low cholesterol, low salt Follow up with: LEBRON ROGER MD [Primary Care Provider] - 3-5 Days
--- NOTE | 2017-06-25 14:52 | Progress Note ---
Assessment and Plan - Patient Problems (1) ESRD needing dialysis Current Visit: No Status: Acute Plan to address problem: cont TTS schedule, stable for discharge from renal stand point after HD today (2) Hyperkalemia Current Visit: No Status: Acute Plan to address problem: corrected with HD, cont 2g K renal diet (3) Hypertensive chronic kidney disease with stage 5 chronic kidney disease or end stage renal disease Current Visit: No Status: Acute Plan to address problem: resume home BP meds, will adjust if BP remains uncontrolled after HD (4) Nausea & vomiting Current Visit: No Status: Acute Plan to address problem: zofran prn, GI follow up (5) Anemia due to chronic kidney disease Current Visit: No Status: Chronic Plan to address problem: hb at target, to cont mircera at outpatient HD clinic Subjective Date of service: 06/25/17 Principal diagnosis: ESRD Interval history: Pt awake, alert, in NAD Objective - Vital Signs Vital signs: Vital Signs - 12hr 06/25/17 06/25/17 06/25/17 07:53 09:33 09:59 Temperature 98.0 F Pulse Rate 60 Pulse Rate [ 60 Anterior Bilateral Throughout] Respiratory 18 Rate Respiratory 18 Rate [Anterior Bilateral Throughout] Blood Pressure 157/67 157/67 O2 Sat by Pulse 100 Oximetry 06/25/17 06/25/17 10:00 10:10 Temperature Pulse Rate Pulse Rate [ 59 L Anterior Bilateral Throughout] Respiratory Rate Respiratory 18 Rate [Anterior Bilateral Throughout] Blood Pressure O2 Sat by Pulse 100 Oximetry - General Appearance General appearance: appears stated age, chronically ill EENT: ATNC, PERRL, mucous membranes moist Neck: no JVD Respiratory: Present: Clear to Ascultation Cardiology: regular, S1S2 Gastrointestinal: normoactive bowel sounds Integumentary: no rash, other (no edema ) Neurologic: no focal deficit, alert and oriented x3, strength 5/5, CN 3-12 intact Psychiatric: mood/affect appropriate, cooperative - Lab 06/24/17 17:35 06/24/17 17:35 Most recent lab results Calcium 9.2 mg/dL (8.4-10.2) 06/24/17 17:35
[2017-06-25] MEDS ORDERED: NACL 0.9% 100 ML IV PRN (15:42)
--- NOTE | 2017-06-25 18:26 | Progress Note ---
Assessment and Plan Assessment and plan: Patient is a 72 years old male with past medical history atrial fib, CAD, diabetes, dialysis, CVA, ESRD, hypertension and PVD who presents to the Emergency department for lower abdominal pain, nausea and vomiting for the past 2 days. End-stage renal disease on dialysis Nephrology Following Hyperkalemia Patient will have HD today that will correct it. Nausa and vomiting, now resolved Recent General Surgery recommended no surgical intervention Antiemetic Closely monitor electrolytes Chronic Transaminitis, elevated bilirubin bilirubin trending down Closely monitor liver function Diabetes mellitus type 2 Accu-Chek before meals and at bedtime Sliding scale insulin/NovoLog ADA carbohydrate consistent diet Hypertensive urgency Continue home antihypertensive medications Closely monitor blood pressure CAD with elevated troponins Troponin trending up Most likely due to ESRD Echocardiogram on 06/05/2017 with ef 25%-30% EKG sinus rhythm, no changes Recent normal stress test Afib Resume Eliquis DVT prophylaxis. On Eliquis Thrombocytopenia is worse. Plt 36 today. Willrepeat. Patient not discharged because of thrombocytopenia. History Interval history: patient has low platelets therefore not discharged Hospitalist Physical - Physical exam Narrative exam: GEN APPEARANCE : Not in acute distress, HEENT: Normocephalic, atraumatic NECK : supple, no JVD LUNGS: Clear to auscultation. No rales, no wheeze HEART: S1 and S2 regular, no murmurs, rubs or gallop, ABD: Soft, non tender, non distended, normal bowel sounds EXT: Bilateral BKA, no clubbing, no cyanosis NEURO: Awake,alert,oriented x 3 - Constitutional Vitals: Temp Pulse Resp BP Pulse Ox 97.4 F L 61 22 162/108 100 06/25/17 16:36 06/25/17 16:36 06/25/17 16:36 06/25/17 16:36 06/25/17 16:36 General appearance: Present: no acute distress Results - Labs CBC & Chem 7: 06/26/17 10:06 06/24/17 17:35 Labs: Laboratory Last Values WBC 4.7 K/mm3 (4.5-11.0) 06/24/17 17:35 RBC 3.58 M/mm3 (3.65-5.03) L 06/24/17 17:35 Hgb 10.9 gm/dl (11.8-15.2) L 06/24/17 17:35 Hct 34.1 % (35.5-45.6) L 06/24/17 17:35 MCV 95 fl (84-94) H 06/24/17 17:35 MCH 31 pg (28-32) 06/24/17 17:35 MCHC 32 % (32-34) 06/24/17 17:35 RDW 20.4 % (13.2-15.2) H 06/24/17 17:35 Plt Count 43 K/mm3 (140-440) L 06/25/17 17:00 Lymph % (Auto) 12.6 % (13.4-35.0) L 06/23/17 14:45 [place] % (Auto) 11.3 % (0.0-7.3) H 06/23/17 14:45 Eos % (Auto) 3.8 % (0.0-4.3) 06/23/17 14:45 Baso % (Auto) 1.0 % (0.0-1.8) 06/23/17 14:45 Lymph # 0.8 K/mm3 (1.2-5.4) L 06/23/17 14:45 [place] # 0.7 K/mm3 (0.0-0.8) 06/23/17 14:45 Eos # 0.2 K/mm3 (0.0-0.4) 06/23/17 14:45 Baso # 0.1 K/mm3 (0.0-0.1) 06/23/17 14:45 Seg Neutrophils % 71.3 % (40.0-70.0) H 06/23/17 14:45 Seg Neutrophils # 4.5 K/mm3 (1.8-7.7) 06/23/17 14:45 Sodium 141 mmol/L (137-145) 06/24/17 17:35 Potassium 4.2 mmol/L (3.6-5.0) 06/24/17 17:35 Chloride 94.1 mmol/L (98-107) L 06/24/17 17:35 Carbon Dioxide 26 mmol/L (22-30) 06/24/17 17:35 Anion Gap 25 mmol/L 06/24/17 17:35 BUN 21 mg/dL (9-20) H 06/24/17 17:35 Creatinine 5.2 mg/dL (0.8-1.5) H 06/24/17 17:35 Estimated GFR 13 ml/min 06/24/17 17:35 BUN/Creatinine Ratio 4 % 06/24/17 17:35 Glucose 140 mg/dL (75-100) H 06/24/17 17:35 POC Glucose 133 (70-105) H 06/25/17 16:38 Calcium 9.2 mg/dL (8.4-10.2) 06/24/17 17:35 Total Bilirubin 1.40 mg/dL (0.1-1.2) H 06/23/17 14:45 AST 58 units/L (5-40) H 06/23/17 14:45 ALT 17 units/L (7-56) 06/23/17 14:45 Alkaline Phosphatase 147 units/L (35-129) H 06/23/17 14:45 Total Creatine Kinase 103 units/L (55-170) 06/24/17 17:35 CK-MB (CK-2) 2.6 ng/mL (0.0-4.0) 06/24/17 17:35 CK-MB (CK-2) Rel Index 2.5 (0-4) 06/24/17 17:35 Troponin T 0.097 ng/mL (0.00-0.029) H 06/24/17 17:35 NT-Pro-B Natriuret Pep > 56242 pg/mL (0-900) H 06/23/17 14:45 Total Protein 7.3 g/dL (6.3-8.2) 06/23/17 14:45 Albumin 3.8 g/dL (3.9-5) L 06/23/17 14:45 Albumin/Globulin Ratio 1.1 % 06/23/17 14:45 Triglycerides 67 mg/dL (2-149) 06/23/17 14:45 Cholesterol 103 mg/dL (50-199) 06/23/17 14:45 LDL Cholesterol Direct 40 mg/dL (50-130) L 06/23/17 14:45 HDL Cholesterol 50 mg/dL (40-59) 06/23/17 14:45 Cholesterol/HDL Ratio 2.06 % 06/23/17 14:45 Plasma/Serum Alcohol < 0.01 gm% (0-0.07) 06/23/17 17:27
[2017-06-25] MEDS: PRAVACHOL PO SCH (21:51)
[2017-06-25] MEDS: TYLENOL PO PRN (23:09)
[2017-06-26] MEDS: ZOFRAN ODT PO SCH ×3 (06:25→21:01)
[2017-06-26] MEDS: LASIX IV SCH ×2 (06:25→17:14)
[2017-06-26] MEDS: PROVENTIL IH SCH ×3 (07:26→21:18)
[2017-06-26] MEDS: NOVOLOG SUB-Q SCH ×2 (09:03→22:15)
[2017-06-26] MEDS: COREG PO SCH ×3 (09:04→23:31)
[2017-06-26] MEDS: ELIQUIS PO SCH ×2 (09:04→21:01)
[2017-06-26] MEDS: COZAAR PO SCH (09:04)
[2017-06-26] MEDS: HALFPRIN EC PO SCH (09:04)
[2017-06-26] MEDS: SENSIPAR PO SCH (09:04)
--- NOTE | 2017-06-26 12:14 | Progress Note ---
Assessment and Plan Assessment and plan: Patient is a 72 years old male with past medical history atrial fib, CAD, diabetes, dialysis, CVA, ESRD, hypertension and PVD who presents to the Emergency department for lower abdominal pain, nausea and vomiting for the past 2 days. End-stage renal disease on dialysis Nephrology Following Hyperkalemia Patient will have HD today that will correct it. Nausa and vomiting, now resolved Recent General Surgery recommended no surgical intervention Antiemetic Closely monitor electrolytes Chronic Transaminitis, elevated bilirubin bilirubin trending down Closely monitor liver function Diabetes mellitus type 2 Accu-Chek before meals and at bedtime Sliding scale insulin/NovoLog ADA carbohydrate consistent diet Hypertensive urgency Continue home antihypertensive medications Closely monitor blood pressure CAD with elevated troponins Troponin trending up Most likely due to ESRD Echocardiogram on 06/05/2017 with ef 25%-30% EKG sinus rhythm, no changes Recent normal stress test Afib. On Eliquis DVT prophylaxis. On Eliquis Thrombocytopenia is worse. Plt 39 today. Will repeat in am. Patient not discharged because of thrombocytopenia. May consult Education Administrator. History Interval history: patient has low platelets therefore not discharged, no chest pain Hospitalist Physical - Physical exam Narrative exam: GEN APPEARANCE : Not in acute distress, HEENT: Normocephalic, atraumatic NECK : supple, no JVD LUNGS: Clear to auscultation. No rales, no wheeze HEART: S1 and S2 regular, no murmurs, rubs or gallop, ABD: Soft, non tender, non distended, normal bowel sounds EXT: Bilateral BKA, no clubbing, no cyanosis NEURO: Awake,alert,oriented x 3 - Constitutional Vitals: Temp Pulse Resp BP Pulse Ox 97.8 F 62 16 165/73 100 06/26/17 07:15 06/26/17 07:40 06/26/17 07:40 06/26/17 07:15 06/26/17 07:15 General appearance: Present: no acute distress Results - Labs CBC & Chem 7: 06/27/17 06:16 06/24/17 17:35 Labs: Laboratory Last Values WBC 4.7 K/mm3 (4.5-11.0) 06/24/17 17:35 RBC 3.58 M/mm3 (3.65-5.03) L 06/24/17 17:35 Hgb 10.9 gm/dl (11.8-15.2) L 06/24/17 17:35 Hct 34.1 % (35.5-45.6) L 06/24/17 17:35 MCV 95 fl (84-94) H 06/24/17 17:35 MCH 31 pg (28-32) 06/24/17 17:35 MCHC 32 % (32-34) 06/24/17 17:35 RDW 20.4 % (13.2-15.2) H 06/24/17 17:35 Plt Count 39 K/mm3 (140-440) L 06/26/17 10:06 Lymph % (Auto) 12.6 % (13.4-35.0) L 06/23/17 14:45 [place] % (Auto) 11.3 % (0.0-7.3) H 06/23/17 14:45 Eos % (Auto) 3.8 % (0.0-4.3) 06/23/17 14:45 Baso % (Auto) 1.0 % (0.0-1.8) 06/23/17 14:45 Lymph # 0.8 K/mm3 (1.2-5.4) L 06/23/17 14:45 [place] # 0.7 K/mm3 (0.0-0.8) 06/23/17 14:45 Eos # 0.2 K/mm3 (0.0-0.4) 06/23/17 14:45 Baso # 0.1 K/mm3 (0.0-0.1) 06/23/17 14:45 Seg Neutrophils % 71.3 % (40.0-70.0) H 06/23/17 14:45 Seg Neutrophils # 4.5 K/mm3 (1.8-7.7) 06/23/17 14:45 Sodium 141 mmol/L (137-145) 06/24/17 17:35 Potassium 4.2 mmol/L (3.6-5.0) 06/24/17 17:35 Chloride 94.1 mmol/L (98-107) L 06/24/17 17:35 Carbon Dioxide 26 mmol/L (22-30) 06/24/17 17:35 Anion Gap 25 mmol/L 06/24/17 17:35 BUN 21 mg/dL (9-20) H 06/24/17 17:35 Creatinine 5.2 mg/dL (0.8-1.5) H 06/24/17 17:35 Estimated GFR 13 ml/min 06/24/17 17:35 BUN/Creatinine Ratio 4 % 06/24/17 17:35 Glucose 140 mg/dL (75-100) H 06/24/17 17:35 POC Glucose 120 (70-105) H 06/26/17 11:29 Calcium 9.2 mg/dL (8.4-10.2) 06/24/17 17:35 Total Bilirubin 1.40 mg/dL (0.1-1.2) H 06/23/17 14:45 AST 58 units/L (5-40) H 06/23/17 14:45 ALT 17 units/L (7-56) 06/23/17 14:45 Alkaline Phosphatase 147 units/L (35-129) H 06/23/17 14:45 Total Creatine Kinase 103 units/L (55-170) 06/24/17 17:35 CK-MB (CK-2) 2.6 ng/mL (0.0-4.0) 06/24/17 17:35 CK-MB (CK-2) Rel Index 2.5 (0-4) 06/24/17 17:35 Troponin T 0.097 ng/mL (0.00-0.029) H 06/24/17 17:35 NT-Pro-B Natriuret Pep > 51316 pg/mL (0-900) H 06/23/17 14:45 Total Protein 7.3 g/dL (6.3-8.2) 06/23/17 14:45 Albumin 3.8 g/dL (3.9-5) L 06/23/17 14:45 Albumin/Globulin Ratio 1.1 % 06/23/17 14:45 Triglycerides 67 mg/dL (2-149) 06/23/17 14:45 Cholesterol 103 mg/dL (50-199) 06/23/17 14:45 LDL Cholesterol Direct 40 mg/dL (50-130) L 06/23/17 14:45 HDL Cholesterol 50 mg/dL (40-59) 06/23/17 14:45 Cholesterol/HDL Ratio 2.06 % 06/23/17 14:45 Plasma/Serum Alcohol < 0.01 gm% (0-0.07) 06/23/17 17:27
--- NOTE | 2017-06-26 14:52 | Progress Note ---
Assessment and Plan - Patient Problems (1) ESRD needing dialysis Current Visit: No Status: Acute Plan to address problem: cont TTS schedule, stable for discharge from renal stand point (2) Hyperkalemia Current Visit: No Status: Acute Plan to address problem: corrected with HD, cont 2g K renal diet (3) Hypertensive chronic kidney disease with stage 5 chronic kidney disease or end stage renal disease Current Visit: No Status: Acute Plan to address problem: resume home BP meds, will adjust if BP remains uncontrolled after HD (4) Nausea & vomiting Current Visit: No Status: Acute Plan to address problem: resolved, cont zofran prn, GI follow up (5) Anemia due to chronic kidney disease Current Visit: No Status: Chronic Plan to address problem: hb at [facility], to cont mircera at outpatient HD clinic Subjective Date of service: 06/26/17 Principal diagnosis: ESRD Interval history: Pt awake, alert, in NAD Objective - Vital Signs Vital signs: Vital Signs - 12hr 06/26/17 06/26/17 06/26/17 07:15 07:26 07:40 Temperature 97.8 F Pulse Rate 57 L Pulse Rate [ 57 L 62 Anterior Bilateral Throughout] Respiratory 19 Rate Respiratory 16 16 Rate [Anterior Bilateral Throughout] Blood Pressure 165/73 O2 Sat by Pulse 100 Oximetry - General Appearance General appearance: appears stated age, chronically ill EENT: ATNC, PERRL, mucous membranes moist Neck: no JVD, supple Respiratory: Present: Clear to Ascultation Cardiology: regular, S1S2 Gastrointestinal: normoactive bowel sounds Integumentary: no rash, other (no edema, b/l BKA ) Neurologic: no focal deficit, alert and oriented x3, strength 5/5 Psychiatric: mood/affect appropriate, cooperative - Lab 06/26/17 10:06 06/24/17 17:35 Most recent lab results Calcium 9.2 mg/dL (8.4-10.2) 06/24/17 17:35
[2017-06-26] MEDS: PRAVACHOL PO SCH (21:01)
[2017-06-27] MEDS: LASIX IV SCH ×2 (05:49→17:51)
[2017-06-27] MEDS: ZOFRAN ODT PO SCH ×3 (05:49→21:00)
--- NOTE | 2017-06-27 07:33 | Hem/Onc Consultation ---
History of Present Illness - Reason for Consult Consult date: 06/27/17 - History of Present Illness 72 YO Male with HTN, CVA, [place], CHF, DM, GERD, ESRD on HD(T,R,Sa), OA, Asthma, COPD, presents to ED for evaluation. Pt felt sick during dialysis and had nausea and vomiting. Pt denies fever, chills, CP, Palpitations, Syncope, BRBPR, Skin rash, productive cough or recent ill contacts. Pt seen and evaluated in ED and treated with supportive care and anti emetic therapy. Pt also found to have fluid overload after incomplete dialysis. He has been feeling better and wants to go home but platelet count has been low. Pt is not aware of low platelets in the past. No bleeding. he is on eliquis for afib. Past History Past Medical History: atrial fib, CAD, diabetes, ESRD, hypertension, hyperlipidemia Past Surgical History: hernia repair, Other ( bilateral BKA. FISTULA RIGHT FOREARM. HERNIA REPAIR) Social history: single. denies: smoking, alcohol abuse, prescription drug abuse Family history: diabetes, hypertension Medications and Allergies Allergies Allergy/AdvReac Type Severity Reaction Status Date / Time No Known Allergies Allergy Verified 12/17/16 10:26 Home Medications Medication Instructions Recorded Confirmed Last Taken Type Insulin Aspart [NovoLOG Flexpen] 10 units SQ BID 06/02/17 06/23/17 06/01/17 History Losartan [Cozaar] 50 mg PO DAILY 06/02/17 06/24/17 06/01/17 History Simvastatin [Zocor TAB] 10 mg PO QHS 06/02/17 06/23/17 06/01/17 History Apixaban [Eliquis] 5 mg PO BID tablet 06/03/17 06/23/17 Unknown Rx Carvedilol [Coreg] 25 mg PO BID tablet 06/03/17 06/23/17 Unknown Rx Tiotropium [place] [Spiriva] 1 puff PO DAILY 06/04/17 06/23/17 Unknown History Albuterol Sulfate [Albuterol 0.63% 0.63 mg IH TID PRN 06/23/17 06/23/17 Unknown History NEBS] Apixaban [Eliquis] 5 mg PO BID 06/23/17 06/23/17 Unknown History Cinacalcet HCl [Sensipar] 60 mg PO DAILY 06/23/17 06/23/17 Unknown History Esomeprazole Magnesium [NexIUM] 40 mg PO BID 06/23/17 06/23/17 Unknown History Furosemide [Lasix TAB] 40 mg PO DAILY 06/23/17 06/23/17 Unknown History Aspirin EC [Aspirin Enteric Coated 81 mg PO QDAY tablet 06/25/17 Unknown Rx TAB] Pravastatin [Pravachol] 20 mg PO QHS tablet 06/25/17 Unknown Rx Active Meds: Active Medications Acetaminophen (Tylenol) 650 mg PO Q4H PRN PRN Reason: Pain MILD(1-3)/Fever >100.5/DYE Last Admin: 06/25/17 23:09 Dose: 650 mg Albuterol (Proventil) 2.5 mg IH Q4HRT PRN PRN Reason: Shortness Of Breath Albuterol (Proventil) 2.5 mg IH TID [facility] Last Admin: 06/26/17 21:18 Dose: 2.5 mg Apixaban (Eliquis) 5 mg PO BID [facility] PRN Reason: Protocol Last Admin: 06/26/17 21:01 Dose: 5 mg Aspirin (Halfprin Ec) 81 mg PO QDAY [facility] Last Admin: 06/26/17 09:04 Dose: 81 mg Carvedilol (Coreg) 25 mg PO BID [facility] Last Admin: 06/26/17 21:02 Dose: 25 mg Cinacalcet (Sensipar) 30 mg PO QDAY [facility] Last Admin: 06/26/17 09:04 Dose: 30 mg Furosemide (Lasix) 20 mg IV 0600,1800 [facility] Last Admin: 06/27/17 05:49 Dose: 20 mg Sodium Chloride (Nacl 0.9%) 100 mls @ 999 mls/hr IV CHAZ PRN PRN Reason: Hypotension Insulin Aspart (Novolog) 10 units SUB-Q BID [facility] Last Admin: 06/26/17 22:15 Dose: 10 units Losartan Potassium (Cozaar) 50 mg PO QDAY [facility] Last Admin: 06/26/17 09:04 Dose: 50 mg Ondansetron HCl (Zofran) 4 mg IV Q8H PRN PRN Reason: N/V unrelieved by Tod Ondansetron HCl (Zofran Odt) 4 mg PO Q8HR [facility] Last Admin: 06/27/17 05:49 Dose: 4 mg Pravastatin Sodium (Pravachol) 20 mg PO QHS [facility] Last Admin: 06/26/17 21:01 Dose: 20 mg Review of Systems Cardiovascular: shortness of breath (at times) Gastrointestinal: nausea, vomiting (as above) Exam - Constitutional Vitals: Last Vital Signs Temp 97.6 F 06/26/17 21:10 Pulse 68 06/26/17 21:28 Resp 20 06/26/17 21:34 BP 133/65 06/26/17 21:10 Pulse Ox 96 06/26/17 21:18 General appearance: no acute distress - EENT Eyes: PERRL, EOM intact ENT: hearing intact Lymph node exam: negative cervical, negative axillary - Respiratory Respiratory: bilateral: CTA - Cardiovascular Rhythm: irregularly irregular (pacemaker in place) Extremities: abnormal (bilateral AKA) - Gastrointestinal General gastrointestinal: Present: soft, non-tender - Psychiatric Psychiatric: appropriate mood/affect Results - Labs lab Results: Laboratory Results - last 24 hr 06/26/17 06/26/17 06/26/17 10:06 11:29 17:39 Plt Count 39 L POC Glucose 120 H 284 H 06/26/17 06/27/17 06/27/17 21:30 05:39 06:16 Plt Count 45 L POC Glucose 182 H 91 platelet count from today was 45. review of the smear shows microcytosis and tear drops. low platelet count. no significant schistocytes Assessment and Plan 1- thrombocytopenia Platelet count is improving but etiology of drop in number is unclear. the tear drops are concerning for primary bone marrow discorder such as myelodysplastic syndrome. will order iron studies, b12 and folic acid and SPEP but pt may need bone marrow bx at one point. 2- afib on eliquis- consider dropping the dose to 2.5 mg bid with low platelets and renal failure if acceptable by cardiology. 3- nausea and vomiting- resolved. 4- ESRD on HD
[2017-06-27] MEDS: PROVENTIL IH SCH ×2 (07:35→14:19)
[2017-06-27] MEDS: COREG PO SCH ×2 (09:50→21:00)
[2017-06-27] MEDS: COZAAR PO SCH (09:51)
[2017-06-27] MEDS: ELIQUIS PO SCH ×2 (09:51→21:00)
[2017-06-27] MEDS: SENSIPAR PO SCH (09:51)
[2017-06-27] MEDS: HALFPRIN EC PO SCH (09:51)
[2017-06-27] MEDS: NOVOLOG SUB-Q SCH ×2 (10:00→22:33)
--- NOTE | 2017-06-27 13:03 | Progress Note ---
Assessment and Plan (1) ESRD needing dialysis Current Visit: No Status: Acute Plan to address problem: Continue TTS schedule, stable for discharge from renal stand point Pt had difficult cannulation and refused for re attempt per solutions development analyst and dialysis was not done today. Will get vascular consult (2) Hyperkalemia Current Visit: No Status: Acute Plan to address problem: Corrected with HD, cont 2g K renal diet (3) Hypertensive chronic kidney disease with stage 5 chronic kidney disease or end stage renal disease Current Visit: No Status: Acute Plan to address problem: Resume home BP meds, will adjust if BP remains uncontrolled after HD (4) Nausea & vomiting Current Visit: No Status: Acute Plan to address problem: Resolved, cont zofran prn, GI follow up (5) Anemia due to chronic kidney disease Current Visit: No Status: Chronic Plan to address problem: hb at [facility], to cont mircera at outpatient HD clinic (6) Malfunctioning AVF Current Visit: No Status: Acute Plan to address problem: Difficult cannulation. Pt refused for re attempt per solutions development analyst. Will get vascular involved. Subjective Principal diagnosis: ESRD Objective - Vital Signs Vital signs: Vital Signs - 12hr 06/27/17 06/27/17 06/27/17 07:34 08:00 08:10 Temperature 97.9 F Pulse Rate 61 Pulse Rate [ 61 62 Anterior Bilateral Throughout] Respiratory 19 Rate Respiratory 18 18 Rate [Anterior Bilateral Throughout] Blood Pressure 133/54 O2 Sat by Pulse 100 Oximetry - Lab 06/27/17 06:16 06/24/17 17:35 Most recent lab results Calcium 9.2 mg/dL (8.4-10.2) 06/24/17 17:35
--- NOTE | 2017-06-27 19:32 | Progress Note ---
Assessment and Plan Assessment and plan: Patient is a 72 years old male with past medical history atrial fib, CAD, diabetes, dialysis, CVA, ESRD, hypertension and PVD who presents to the Emergency department for lower abdominal pain, nausea and vomiting for the past 2 days. End-stage renal disease on dialysis Nephrology Following Hyperkalemia Patient will have HD today that will correct it. Nausa and vomiting, now resolved Recent General Surgery recommended no surgical intervention Antiemetic Closely monitor electrolytes Chronic Transaminitis, elevated bilirubin bilirubin trending down Closely monitor liver function Diabetes mellitus type 2 Accu-Chek before meals and at bedtime Sliding scale insulin/NovoLog ADA carbohydrate consistent diet Hypertensive urgency Continue home antihypertensive medications Closely monitor blood pressure CAD with elevated troponins Troponin trending up Most likely due to ESRD Echocardiogram on 06/05/2017 with ef 25%-30% EKG sinus rhythm, no changes Recent normal stress test Afib. On Eliquis DVT prophylaxis. On Eliquis Thrombocytopenia. Platelet count 45. Patient not discharged home because of thrombocytopenia. Consulted Market Analyst and he was evaluated. Addendum: Called by Nurse later that patient had dialysis fistula malfunction and informed Remote Recruiter. History Interval history: patient has low platelets therefore not discharged, no more abdominal pain no chest pain Hospitalist Physical - Physical exam Narrative exam: GEN APPEARANCE : Not in acute distress, HEENT: Normocephalic, atraumatic NECK : supple, no JVD LUNGS: Clear to auscultation. No rales, no wheeze HEART: S1 and S2 regular, no murmurs, rubs or gallop, ABD: Soft, non tender, non distended, normal bowel sounds EXT: Bilateral BKA, no clubbing, no cyanosis NEURO: Awake,alert,oriented x 3 - Constitutional Vitals: Temp Pulse Resp BP Pulse Ox 97.9 F 68 18 133/54 100 06/27/17 07:34 06/27/17 14:29 06/27/17 14:29 06/27/17 07:34 06/27/17 07:34 General appearance: Present: no acute distress Results - Labs CBC & Chem 7: 06/27/17 06:16 06/24/17 17:35 Labs: Laboratory Last Values WBC 4.7 K/mm3 (4.5-11.0) 06/24/17 17:35 RBC 3.58 M/mm3 (3.65-5.03) L 06/24/17 17:35 Hgb 10.9 gm/dl (11.8-15.2) L 06/24/17 17:35 Hct 34.1 % (35.5-45.6) L 06/24/17 17:35 MCV 95 fl (84-94) H 06/24/17 17:35 MCH 31 pg (28-32) 06/24/17 17:35 MCHC 32 % (32-34) 06/24/17 17:35 RDW 20.4 % (13.2-15.2) H 06/24/17 17:35 Plt Count 45 K/mm3 (140-440) L 06/27/17 06:16 Lymph % (Auto) 12.6 % (13.4-35.0) L 06/23/17 14:45 [place] % (Auto) 11.3 % (0.0-7.3) H 06/23/17 14:45 Eos % (Auto) 3.8 % (0.0-4.3) 06/23/17 14:45 Baso % (Auto) 1.0 % (0.0-1.8) 06/23/17 14:45 Lymph # 0.8 K/mm3 (1.2-5.4) L 06/23/17 14:45 [place] # 0.7 K/mm3 (0.0-0.8) 06/23/17 14:45 Eos # 0.2 K/mm3 (0.0-0.4) 06/23/17 14:45 Baso # 0.1 K/mm3 (0.0-0.1) 06/23/17 14:45 Seg Neutrophils % 71.3 % (40.0-70.0) H 06/23/17 14:45 Seg Neutrophils # 4.5 K/mm3 (1.8-7.7) 06/23/17 14:45 Sodium 141 mmol/L (137-145) 06/24/17 17:35 Potassium 4.2 mmol/L (3.6-5.0) 06/24/17 17:35 Chloride 94.1 mmol/L (98-107) L 06/24/17 17:35 Carbon Dioxide 26 mmol/L (22-30) 06/24/17 17:35 Anion Gap 25 mmol/L 06/24/17 17:35 BUN 21 mg/dL (9-20) H 06/24/17 17:35 Creatinine 5.2 mg/dL (0.8-1.5) H 06/24/17 17:35 Estimated GFR 13 ml/min 06/24/17 17:35 BUN/Creatinine Ratio 4 % 06/24/17 17:35 Glucose 140 mg/dL (75-100) H 06/24/17 17:35 POC Glucose 156 (70-105) H 06/27/17 11:31 Calcium 9.2 mg/dL (8.4-10.2) 06/24/17 17:35 Ferritin 1338.0 ng/mL (13.0-400.0) H 06/27/17 09:50 Total Bilirubin 1.40 mg/dL (0.1-1.2) H 06/23/17 14:45 AST 58 units/L (5-40) H 06/23/17 14:45 ALT 17 units/L (7-56) 06/23/17 14:45 Alkaline Phosphatase 147 units/L (35-129) H 06/23/17 14:45 Total Creatine Kinase 103 units/L (55-170) 06/24/17 17:35 CK-MB (CK-2) 2.6 ng/mL (0.0-4.0) 06/24/17 17:35 CK-MB (CK-2) Rel Index 2.5 (0-4) 06/24/17 17:35 Troponin T 0.097 ng/mL (0.00-0.029) H 06/24/17 17:35 NT-Pro-B Natriuret Pep > 28315 pg/mL (0-900) H 06/23/17 14:45 Total Protein 7.3 g/dL (6.3-8.2) 06/23/17 14:45 Albumin 3.8 g/dL (3.9-5) L 06/23/17 14:45 Albumin/Globulin Ratio 1.1 % 06/23/17 14:45 Triglycerides 67 mg/dL (2-149) 06/23/17 14:45 Cholesterol 103 mg/dL (50-199) 06/23/17 14:45 LDL Cholesterol Direct 40 mg/dL (50-130) L 06/23/17 14:45 HDL Cholesterol 50 mg/dL (40-59) 06/23/17 14:45 Cholesterol/HDL Ratio 2.06 % 06/23/17 14:45 Vitamin B12 857.8 pg/mL (211-911) 06/27/17 09:58 Plasma/Serum Alcohol < 0.01 gm% (0-0.07) 06/23/17 17:27
[2017-06-27] MEDS: PRAVACHOL PO SCH (21:00)
[2017-06-28] MEDS: PROVENTIL IH SCH ×4 (00:35→20:00)
[2017-06-28] MEDS ORDERED: D50W (25GM) Syringe IV ONE (03:30)
[2017-06-28] MEDS: TYLENOL PO PRN ×2 (03:44→07:46)
[2017-06-28] MEDS: ZOFRAN ODT PO SCH ×3 (05:30→22:30)
[2017-06-28] MEDS: LASIX IV SCH ×2 (05:30→17:13)
[2017-06-28 06:51] LABS: Hematocrit 31.3 % (35.5-45.6); Mean Corpuscular HGB Conc 32 % (32-34); Mean Corpuscular Hemoglobin 30 pg (28-32); Mean Corpuscular Volume 94 fl (84-94); Red Blood Count 3.33 M/mm3 (3.65-5.03); Red Cell Distribution Width 19.4 % (13.2-15.2); White Blood Count 5.4 K/mm3 (4.5-11.0)
[2017-06-28 07:00] LABS: Platelet Count 63 K/mm3 (140-440)
[2017-06-28 07:06] LABS: Calcium 8.7 mg/dL (8.4-10.2); Chloride 95.4 mmol/L (98-107); Potassium 5.9 mmol/L (3.6-5.0)
--- NOTE | 2017-06-28 08:29 | Hem/Onc Progress Note ---
Assessment and Plan 1- thrombocytopenia Platelet count is improving. Dr. Manzo will see on Thursday. if pt is discharged, he needs to follow up with Dr Manzo as out patient for monitoring and possible BM bx 2- afib on eliquis 3- nausea and vomiting- resolved. 4- ESRD on HD. access being evaluated Subjective Date of service: 06/28/17 Interval history: Fistula not functioning well. going for study later today. Objective - Constitutional Vitals: Last Vital Signs Temp 97.8 F 06/27/17 22:34 Pulse 61 06/27/17 22:34 Resp 18 06/28/17 04:44 BP 142/68 06/27/17 22:34 Pulse Ox 100 06/27/17 22:34 General appearance: no acute distress - EENT Eyes: PERRL - Musculoskeletal Musculoskeletal: other (bilateral lower extremity amputation) - Neurologic Neurologic: CNII-XII intact - Labs Lab Results: Laboratory Results - last 24 hr 06/27/17 06/27/17 06/27/17 09:50 09:58 11:31 WBC RBC Hgb Hct MCV MCH MCHC RDW Plt Count Sodium Potassium Chloride Carbon Dioxide Anion Gap BUN Creatinine Estimated GFR BUN/Creatinine Ratio Glucose POC Glucose 156 H Calcium Ferritin 1338.0 H Vitamin B12 857.8 06/27/17 06/28/17 06/28/17 21:17 03:31 05:38 WBC 5.4 RBC 3.33 L Hgb 10.0 L Hct 31.3 L MCV 94 MCH 30 MCHC 32 RDW 19.4 H Plt Count 63 L Sodium Potassium Chloride Carbon Dioxide Anion Gap BUN Creatinine Estimated GFR BUN/Creatinine Ratio Glucose POC Glucose 154 H 61 L Calcium Ferritin Vitamin B12 06/28/17 06/28/17 05:38 06:14 WBC RBC Hgb Hct MCV MCH MCHC RDW Plt Count Sodium 140 Potassium 5.9 H D Chloride 95.4 L Carbon Dioxide 24 Anion Gap 27 BUN 54 H Creatinine 7.6 H Estimated GFR 9 BUN/Creatinine Ratio 7 Glucose 116 H POC Glucose 129 H Calcium 8.7 Ferritin Vitamin B12
[2017-06-28] MEDS ORDERED: D50W (25GM) Syringe IV PRN (08:42)
[2017-06-28] MEDS: ELIQUIS PO SCH ×2 (10:00→22:43)
[2017-06-28] MEDS ORDERED: NON-FORMULARY (Esomeprazole Magnesium [Nexium] 40 MG) PO SCH (10:00)
[2017-06-28] MEDS ORDERED: NON-FORMULARY (Cinacalcet Hcl [Sensipar] 60 MG) PO SCH (10:00)
[2017-06-28] MEDS: COZAAR PO SCH (10:01)
[2017-06-28] MEDS: HALFPRIN EC PO SCH (10:01)
[2017-06-28] MEDS: PROTONIX PO SCH ×2 (10:01→22:30)
[2017-06-28] MEDS: SENSIPAR PO SCH (10:02)
[2017-06-28] MEDS: COREG PO SCH (10:02)
--- NOTE | 2017-06-28 10:03 | Consultation ---
History of Present Illness - Reason for Consult Consult date: 06/28/17 Dialysis malfunction - History of Present Illness 72 year old male with HTN, CVA, SD, CHF, DM, GERD, ESRD on HD(T,R,Sa), OA, Asthma, COPD, presents to ED for evaluation. He underwent dialysis for about 10- 15 minutes when he suddenly felt sick, dizzy, nauseated, and began to vomit. Pt also found to have fluid overload after incomplete dialysis. Attempted to have dialysis yesterday, but unsuccessful. Has bilateral lower extremity thigh pain with BKA. Thrill at the peripheral portion of the right radiocephalic AV fistula, but it becomes pulsatile mid- forearm. Past History Past Medical History: atrial fib, CAD, diabetes, ESRD, hypertension, hyperlipidemia Past Surgical History: hernia repair, Other ( bilateral BKA. FISTULA RIGHT FOREARM. HERNIA REPAIR) Social history: single. denies: smoking, alcohol abuse, prescription drug abuse Family history: diabetes, hypertension Medications and Allergies Allergies Allergy/AdvReac Type Severity Reaction Status Date / Time No Known Allergies Allergy Verified 12/17/16 10:26 Home Medications Medication Instructions Recorded Confirmed Last Taken Type Insulin Aspart [NovoLOG Flexpen] 10 units SQ BID 06/02/17 06/23/17 06/01/17 History Losartan [Cozaar] 50 mg PO DAILY 06/02/17 06/24/17 06/01/17 History Simvastatin [Zocor TAB] 10 mg PO QHS 06/02/17 06/23/17 06/01/17 History Apixaban [Eliquis] 5 mg PO BID tablet 06/03/17 06/23/17 Unknown Rx Carvedilol [Coreg] 25 mg PO BID tablet 06/03/17 06/23/17 Unknown Rx Tiotropium [place] [Spiriva] 1 puff PO DAILY 06/04/17 06/23/17 Unknown History Albuterol Sulfate [Albuterol 0.63% 0.63 mg IH TID PRN 06/23/17 06/23/17 Unknown History NEBS] Apixaban [Eliquis] 5 mg PO BID 06/23/17 06/23/17 Unknown History Cinacalcet HCl [Sensipar] 60 mg PO DAILY 06/23/17 06/23/17 Unknown History Esomeprazole Magnesium [NexIUM] 40 mg PO BID 06/23/17 06/23/17 Unknown History Furosemide [Lasix TAB] 40 mg PO DAILY 06/23/17 06/23/17 Unknown History Aspirin EC [Aspirin Enteric Coated 81 mg PO QDAY tablet 06/25/17 Unknown Rx TAB] Pravastatin [Pravachol] 20 mg PO QHS tablet 06/25/17 Unknown Rx Active Meds: Active Medications Acetaminophen (Tylenol) 650 mg PO Q4H PRN PRN Reason: Pain MILD(1-3)/Fever >100.5/DYE Last Admin: 06/28/17 07:46 Dose: 650 mg Albuterol (Proventil) 2.5 mg IH Q4HRT PRN PRN Reason: Shortness Of Breath Albuterol (Proventil) 2.5 mg IH TID [facility] Last Admin: 06/28/17 08:05 Dose: 2.5 mg Apixaban (Eliquis) 5 mg PO BID [facility] PRN Reason: Protocol Last Admin: 06/28/17 10:00 Dose: Not Given Aspirin (Halfprin Ec) 81 mg PO QDAY [facility] Last Admin: 06/28/17 10:01 Dose: 81 mg Carvedilol (Coreg) 25 mg PO BID [facility] Last Admin: 06/28/17 10:02 Dose: 25 mg Cinacalcet (Sensipar) 60 mg PO QDAY [facility] Last Admin: 06/28/17 10:02 Dose: 60 mg Dextrose (D50w (25gm) Syringe) 50 ml IV PRN PRN PRN Reason: Hypoglycemia Furosemide (Lasix) 20 mg IV 0600,1800 [facility] Last Admin: 06/28/17 05:30 Dose: 20 mg Sodium Chloride (Nacl 0.9%) 100 mls @ 999 mls/hr IV CHAZ PRN PRN Reason: Hypotension Insulin Human Regular (Novolin R) 0 units SUB-Q ACHS GRACIE PRN Reason: Protocol Losartan Potassium (Cozaar) 50 mg PO QDAY [facility] Last Admin: 06/28/17 10:01 Dose: 50 mg Ondansetron HCl (Zofran) 4 mg IV Q8H PRN PRN Reason: N/V unrelieved by Tod Ondansetron HCl (Zofran Odt) 4 mg PO Q8HR [facility] Last Admin: 06/28/17 05:30 Dose: 4 mg Pantoprazole Sodium (Protonix) 40 mg PO BID [facility] Last Admin: 06/28/17 10:01 Dose: 40 mg Pravastatin Sodium (Pravachol) 20 mg PO QHS [facility] Last Admin: 06/27/17 21:00 Dose: 20 mg Review of Systems All systems: negative (see HPI) Exam - Constitutional Vitals: Temp Pulse Resp BP Pulse Ox 98.3 F 62 20 146/57 96 06/28/17 08:28 06/28/17 08:28 06/28/17 08:28 06/28/17 08:28 06/28/17 08:28 General appearance: Present: no acute distress - EENT Eyes: Present: EOM intact ENT: hearing intact - Extremities Extremities: normal temperature, normal color Extremity abnormal: other (see HPI - bilateral LE BKA with contractures, right side worse than left, and radiocephalic AVF) - Psychiatric Psychiatric: appropriate mood/affect, cooperative Results - Labs CBC & Chem 7: 06/28/17 05:38 06/28/17 05:38 Labs: Abnormal lab results 06/27/17 06/27/17 06/27/17 Range/Units 09:50 11:31 21:17 RBC (3.65-5.03) M/mm3 Hgb (11.8-15.2) gm/dl Hct (35.5-45.6) % RDW (13.2-15.2) % Plt Count (140-440) K/mm3 Potassium (3.6-5.0) mmol/L Chloride (98-107) mmol/L BUN (9-20) mg/dL Creatinine (0.8-1.5) mg/dL Glucose (75-100) mg/dL POC Glucose 156 H 154 H (70-105) Ferritin 1338.0 H (13.0-400.0) ng/mL 06/28/17 06/28/17 06/28/17 Range/Units 03:31 05:38 05:38 RBC 3.33 L (3.65-5.03) M/mm3 Hgb 10.0 L (11.8-15.2) gm/dl Hct 31.3 L (35.5-45.6) % RDW 19.4 H (13.2-15.2) % Plt Count 63 L (140-440) K/mm3 Potassium 5.9 H D (3.6-5.0) mmol/L Chloride 95.4 L (98-107) mmol/L BUN 54 H (9-20) mg/dL Creatinine 7.6 H (0.8-1.5) mg/dL Glucose 116 H (75-100) mg/dL POC Glucose 61 L (70-105) Ferritin (13.0-400.0) ng/mL 06/28/17 Range/Units 06:14 RBC (3.65-5.03) M/mm3 Hgb (11.8-15.2) gm/dl Hct (35.5-45.6) % RDW (13.2-15.2) % Plt Count (140-440) K/mm3 Potassium (3.6-5.0) mmol/L Chloride (98-107) mmol/L BUN (9-20) mg/dL Creatinine (0.8-1.5) mg/dL Glucose (75-100) mg/dL POC Glucose 129 H (70-105) Ferritin (13.0-400.0) ng/mL Assessment and Plan 72-year-old male with multiple medical problems with presentation with problems including incomplete dialysis who had incomplete dialysis yesterday. Has right upper extremity radiocephalic Zofia AV fistula with abnormal physical exam. We'll need to perform a fistulogram, possible partial thrombectomy, possible angioplasty/stenting and possible PermCath placement. Discussed in depth with patient. Patient was complaining of somewhat chronic pain from his distal thighs. Suspect this is partially secondary to his contractures. Would benefit from outpatient physical therapy, and possibly inpatient physical therapy. I'll obtain a venous ultrasound to exclude DVT.
[2017-06-28] MEDS ORDERED: NACL 0.9% 100 ML IV PRN (10:40)
--- NOTE | 2017-06-28 11:15 | Progress Note ---
Assessment and Plan End-stage renal disease on dialysis AV fistula malfunction: Vascular surgeon Dr. Garces was informed Waiting for PermCath placement for hemodialysis today Hyperkalemia Patient will have HD today after placement of PermCath Nausa and vomiting, now resolved Recent General Surgery recommended no surgical intervention Antiemetic Closely monitor electrolytes Chronic Transaminitis, elevated bilirubin bilirubin trending down Closely monitor liver function Diabetes mellitus type 2 Accu-Chek before meals and at bedtime Sliding scale insulin/NovoLog ADA carbohydrate consistent diet Hypertensive urgency Blood pressure is fair Continue home antihypertensive medications CAD with elevated troponins Most likely due to ESRD Echocardiogram on 06/05/2017 with ef 25%-30% EKG sinus rhythm, no changes Recent normal stress test Afib. On Eliquis We will decreased the Eliquis dose to 2.5 due to chronic kidney disease DVT prophylaxis. On Eliquis Thrombocytopenia. Platelet count 69. hematology is following Subjective Date of service: 06/28/17 Principal diagnosis: ESRD Interval history: Patient is awake and alert He wants to go home His is in the room Explained to them about the malfunctioning of the AV fistula and the need for permcath placement This is scheduled for today following which he will have dialysis Objective - Constitutional Vitals: Vital Signs - 12hr 06/28/17 06/28/17 06/28/17 03:44 04:44 08:28 Temperature 98.3 F Pulse Rate 62 Respiratory 20 18 20 Rate Blood Pressure 146/57 O2 Sat by Pulse 96 Oximetry General appearance: Present: no acute distress - EENT Eyes: PERRL, EOM intact ENT: hearing intact, clear oral mucosa - Neck Neck: supple, normal ROM - Respiratory Respiratory effort: normal Respiratory: bilateral: CTA - Cardiovascular Rhythm: regular Heart Sounds: Present: S1 & S2 Extremities: No edema, abnormal (has AV fistula in the right arm. There is no bruit or pulsations) - Gastrointestinal General gastrointestinal: Present: soft, non-tender Rectal Exam: deferred - Integumentary Integumentary: clear - Musculoskeletal Musculoskeletal: strength equal bilaterally - Neurologic Neurologic: no focal deficits - Labs CBC & Chem 7: 06/28/17 05:38 06/28/17 05:38 Labs: Abnormal lab results 06/27/17 06/27/17 06/28/17 Range/Units 11:31 21:17 03:31 RBC (3.65-5.03) M/mm3 Hgb (11.8-15.2) gm/dl Hct (35.5-45.6) % RDW (13.2-15.2) % Plt Count (140-440) K/mm3 Potassium (3.6-5.0) mmol/L Chloride (98-107) mmol/L BUN (9-20) mg/dL Creatinine (0.8-1.5) mg/dL Glucose (75-100) mg/dL POC Glucose 156 H 154 H 61 L (70-105) 06/28/17 06/28/17 06/28/17 Range/Units 05:38 05:38 06:14 RBC 3.33 L (3.65-5.03) M/mm3 Hgb 10.0 L (11.8-15.2) gm/dl Hct 31.3 L (35.5-45.6) % RDW 19.4 H (13.2-15.2) % Plt Count 63 L (140-440) K/mm3 Potassium 5.9 H D (3.6-5.0) mmol/L Chloride 95.4 L (98-107) mmol/L BUN 54 H (9-20) mg/dL Creatinine 7.6 H (0.8-1.5) mg/dL Glucose 116 H (75-100) mg/dL POC Glucose 129 H (70-105)
[2017-06-28] MEDS ORDERED: HEPARIN/NS 5000 UNIT/500ML(CATH LAB) 1,000 ML IR ONE (12:52)
[2017-06-28] MEDS ORDERED: HEPARIN 10,000 UNITS/10 ML ONE (12:52)
[2017-06-28] MEDS ORDERED: ANCEF/STERILE WATER 2 GM/20 ML 2 GM/20 ML SYRINGE IV ONE (12:53)
[2017-06-28] MEDS ORDERED: NACL 0.9% 500 ML 500 ML ONE (12:53)
[2017-06-28] MEDS ORDERED: XYLOCAINE 2% INFILTRATI ONE (12:53)
[2017-06-28] MEDS: VERSED ONE ×2 (13:07→13:19)
[2017-06-28] MEDS: SUBLIMAZE ONE ×2 (13:07→13:19)
[2017-06-28] MEDS ORDERED: ZOFRAN ONE (13:07)
--- NOTE | 2017-06-28 13:17 | Progress Note ---
Assessment and Plan (1) ESRD needing dialysis Current Visit: No Status: Acute Plan to address problem: Continue TTS schedule, stable for discharge from renal stand point Pt had difficult cannulation and refused for re attempt per hand cloth examiner and dialysis was not done today. --for fistulogram today Dialysis scheduled to be done once HD access is obtained. (2) Hyperkalemia Current Visit: No Status: Acute Plan to address problem: HD today (3) Hypertensive chronic kidney disease with stage 5 chronic kidney disease or end stage renal disease Current Visit: No Status: Acute Plan to address problem: Continue home BP meds, will adjust if BP remains uncontrolled after HD (4) Nausea & vomiting Current Visit: No Status: Acute Plan to address problem: Resolved, cont zofran prn, GI follow up (5) Anemia due to chronic kidney disease Current Visit: No Status: Chronic Plan to address problem: hb at [facility], to cont mircera at outpatient HD clinic (6) Malfunctioning AVF Current Visit: No Status: Acute Plan to address problem: For fisulogram today Subjective Date of service: 06/28/17 Principal diagnosis: ESRD Interval history: +SOB Objective - Exam Narrative Exam: General appearance: appears stated age, chronically ill EENT: ATNC, PERRL, mucous membranes moist Neck: no JVD, supple Respiratory: Present: diminished BS, No wheezing Cardiology: regular, S1S2, no m,g,r Gastrointestinal: normoactive bowel sounds Integumentary: no rash, other (no edema, b/l BKA ), LUE AVF +thrill on the distal part but thrill seems to weaken in the proximal part of the AVF Neurologic: no focal deficit, alert and oriented x3, strength 5/5 Psychiatric: mood/affect appropriate, cooperative - Vital Signs Vital signs: Vital Signs - 12hr 06/28/17 06/28/17 06/28/17 03:44 04:44 08:00 Temperature Pulse Rate Pulse Rate [ 62 Anterior Bilateral Throughout] Respiratory 20 18 Rate Respiratory 18 Rate [Anterior Bilateral Throughout] Blood Pressure O2 Sat by Pulse Oximetry 06/28/17 06/28/17 08:10 08:28 Temperature 98.3 F Pulse Rate 62 Pulse Rate [ 63 Anterior Bilateral Throughout] Respiratory 20 Rate Respiratory 18 Rate [Anterior Bilateral Throughout] Blood Pressure 146/57 O2 Sat by Pulse 96 Oximetry - Lab 06/28/17 05:38 06/28/17 05:38 Most recent lab results Calcium 8.7 mg/dL (8.4-10.2) 06/28/17 05:38
[2017-06-28] MEDS ORDERED: VERSED ONE (13:25)
[2017-06-28] MEDS ORDERED: SUBLIMAZE ONE (13:25)
--- NOTE | 2017-06-28 13:52 | Operative Report ---
Operative Report Operative Report: EXAM: 1. Ultrasound guided access of the AV fistula towards the venous outflow 2. Fistulogram 3. Ultrasound guided access of the AV fistula towards the anastomosis 4. Selection of the radial artery and a retrograde fashion 5. Angioplasty of the anastomosis with a 6 mm x 40 mm angioplasty balloon 6. Angioplasty of the perianastomotic region with an 8 mm x 40 mm angioplasty balloon DATE: 06/28/17 ADJUNCT INSTRUCTOR: DAVION COVARRUBIAS MD INDICATION: End-stage renal disease with malfunctioning AV fistula. MEDICATIONS: Please see nursing report for full details. DEVICES: 6 mm x 40 mm angioplasty balloon 8 mm x 40 mm angioplasty balloon PROCEDURE: The risks, benefits, and alternatives of the procedure were discussed and written informed consent was obtained. The patient was transported in stable condition to the angiography suite. The patient's right arm Zofia AV fistula was assessed by ultrasound and was patent. The patient was prepped and draped in a sterile fashion. Under ultrasound guidance, the right arm radiocephalic AV fistula was accessed with a 21-gauge micropuncture needle. The area was anesthetized prior to access. 0.018 inch wire was advanced through the micropuncture needle into the fistula and then the needle was exchanged for a 5 [place] transitional dilator. Digital subtraction angiography was performed to the transitional dilator demonstrating the entirety of the fistula with reflux angiography performed. There was a mild anastomotic narrowing, a moderate perianastomotic narrowing, some aneurysmal dilatation of the accessed mid forearm portion of the AV fistula , and prompts venous outflow through the patent brachial veins and patent basilic vein into the patent axillary vein. The right subclavian vein and the right innominate vein was minimally narrowed but overall patent. The SVC was patent. Under ultrasound guidance, the right arm AV fistula was accessed in a retrograde fashion with a 21-gauge micropuncture needle. The area was anesthetized prior to access. The 0.018 inch wire was advanced to the micropuncture needle into the fistula. Needle was exchanged for transitional dilator. Wire was exchanged for 0.035 inch wire. The radial artery was then selected and a retrograde fashion. Digital subtraction angiography was performed and the radial artery with the vertebral catheter. The radial artery was hypertrophic and the anastomosis was mildly narrowed, and the jordy-anastomotic region was moderately narrowed. 6 mm angioplasty balloon was used to dilate the anastomosis, an 8 mm angioplasty balloon was used to dilate the perianastomotic region. Digital subtraction angiography was repeated demonstrating proper flow through the AV fistula without any residual narrowing. All access sites were closed with 3-0 Vicryl suture and dermabond. Hemostasis was achieved with slight manual compression. The patient was transported from the angiography suite to the floor in stable condition. IMPRESSION: 1. Ultrasound demonstrated that the distal forearm aneurysmal portion of the AV fistula is slightly infiltrated. There is a large area that is accessible in the mid forearm. 2. Successful fistulogram and venoplasty as descibed above with a 6 and 8 mm angioplasty balloon treating the anastamosis and perianastamotic portion of the AV fistula.
--- NOTE | 2017-06-28 13:53 | Event Note ---
Date: 06/28/17 Status post successful procedure. Of note, the midforearm aneurysmal portion of the radiocephalic AV fistula is accessible, but the upper forearm aneurysmal portion of the AV fistula is slightly infiltrated from prior access attempts. There is a large area that is accessible below it in the mid-forearm.
[2017-06-28] MEDS: PRAVACHOL PO SCH (22:30)
[2017-06-29] MEDS: ZOFRAN ODT PO SCH ×2 (06:30→14:25)
[2017-06-29] MEDS: LASIX IV SCH (06:30)
[2017-06-29] MEDS: PROVENTIL IH SCH ×2 (08:16→13:09)
--- NOTE | 2017-06-29 08:44 | Progress Note ---
Assessment and Plan (1) ESRD needing dialysis Current Visit: No Status: Acute Plan to address problem: Continue TTS schedule, stable for discharge from renal stand point today (2) Hyperkalemia Current Visit: No Status: Acute Plan to address problem: S/p HD--follow up on potassium today (3) Hypertensive chronic kidney disease with stage 5 chronic kidney disease or end stage renal disease Current Visit: No Status: Acute Plan to address problem: Continue home BP meds (4) Nausea & vomiting Current Visit: No Status: Acute Plan to address problem: Resolved, continue zofran prn, GI follow up (5) Anemia due to chronic kidney disease Current Visit: No Status: Chronic Plan to address problem: hb at [facility], to cont mircera at outpatient HD clinic (6) Malfunctioning AVF Current Visit: No Status: Acute Plan to address problem: S/p fisulogram today Discussed with RN> wean oxygen off, F/u on labs and if K is ok can be d/yamel home Subjective Date of service: 06/29/17 Principal diagnosis: ESRD Interval history: s/p fistulogram-- tolerated HD well. SOB better Objective - Exam Narrative Exam: General appearance: appears stated age, chronically ill EENT: ATNC, PERRL, mucous membranes moist Neck: no JVD, supple Respiratory: Present: diminished BS, No wheezing Cardiology: regular, S1S2, no m,g,r Gastrointestinal: normoactive bowel sounds Integumentary: no rash, other (no edema, b/l BKA ), LUE AVF +thrill Neurologic: no focal deficit, alert and oriented x3, strength 5/5 Psychiatric: mood/affect appropriate, cooperative - Vital Signs Vital signs: Vital Signs - 12hr 06/28/17 06/29/17 22:00 07:23 Temperature 97.7 F Pulse Rate 59 L Respiratory 20 22 Rate Respiratory 20 Rate [Denies Pain] Blood Pressure 150/108 O2 Sat by Pulse 98 Oximetry - Lab 06/28/17 05:38 06/28/17 05:38 Most recent lab results Calcium 8.7 mg/dL (8.4-10.2) 06/28/17 05:38
[2017-06-29 10:32] LABS: Calcium 8.4 mg/dL (8.4-10.2); Chloride 91.5 mmol/L (98-107); Potassium 5.4 mmol/L (3.6-5.0)
[2017-06-29] MEDS: COREG PO SCH (11:08)
[2017-06-29] MEDS: PROTONIX PO SCH (11:10)
[2017-06-29] MEDS: ELIQUIS PO SCH (11:10)
[2017-06-29] MEDS: COZAAR PO SCH (11:11)
[2017-06-29] MEDS: SENSIPAR PO SCH (11:12)
--- NOTE | 2017-06-29 13:21 | Discharge Summary ---
Providers - Providers Date of Admission: 06/23/17 17:11 Date of discharge: 06/29/17 Attending physician: LEBRON CORDON 06/23/17 17:13 Consult to Physician [CONS] Routine Consulting Provider: LAVINIA ABEBE Reason For Exam: esrd Place consult to:: nephrology Notified:: yes 06/23/17 17:46 Consult to Physician [CONS] Stat Consulting Provider: DALLIN SWENSON Reason For Exam: NEED FOR DIALYSIS Place consult to:: ED Notified:: PHONE 06/26/17 12:12 Consult to Physician [CONS] Routine Consulting Provider: ALETHA MOE Reason For Exam: Low platelets 39 Place consult to:: Jovany Notified:: yes If yes, spoke with:: Scooter Thomas called:: 13:00 06/27/17 21:51 Consult to Interventional Radiology [CONS] Routine Consulting Provider: DAVION BAHENA Reason For Exam: difficulty cannulation Place consult to:: DR. COVARRUBIAS Notified:: DR. COVARRUBIAS Phone number called:: [phone] Was contact made?: Yes If yes, spoke with:: CASTILLO Thomas called:: 08:20 Comment:: GUANACO NOTIFIED/DR. COVARRUBIAS CALLED BACKED 06/28/17 10:28 Physical Therapy Evaluation and Treat [CONS] Routine Comment: Reason For Exam: BKA contractures with some pain Primary care physician: LEBRON ROGER Hospitalization Condition: Good Hospital course: Patient seen and examined Alert and awake He states he wants to go home period Repeat labs reviewed He has been cleared by nephrology for discharge He states he has all home medications and does not need any prescriptions Assessment: End-stage renal disease on dialysis AV fistula malfunction: Vascular surgeon Dr. Covarrubias Was consulted Balloon angioplasty of the AV fistula in the right forearm was performed and the blockage was opened Patient had hemodialysis post procedure Repeat BMP this morning showed a potassium of 5.4 Patient has been insisting on going home since yesterday He is medically stable for discharge We'll continue hemodialysis and follow up with nephrology post discharge Hyperkalemia Improved to 5.4 post dialysis will order 15 g of Kayexalate prior to discharge Nausa and vomiting, now resolved Recent General Surgery recommended no surgical intervention Antiemetic Closely monitor electrolytes Chronic Transaminitis, elevated bilirubin bilirubin trending down Closely monitor liver function Diabetes mellitus type 2 Accu-Chek before meals and at bedtime Sliding scale insulin/NovoLog ADA carbohydrate consistent diet Hypertensive urgency Blood pressure is fair Continue home antihypertensive medications CAD with elevated troponins Most likely due to ESRD Echocardiogram on 06/05/2017 with ef 25%-30% EKG sinus rhythm, no changes Recent normal stress test Afib. On Eliquis We will decreased the Eliquis dose to 2.5 due to chronic kidney disease Disposition: - TO HOME OR SELFCARE Time spent for discharge: 37 min Core Measure Documentation - Palliative Care Palliative Care/ Comfort Measures: Not Applicable - Core Measures Any of the following diagnoses?: none Exam - Constitutional Vitals: Temp Pulse Resp BP Pulse Ox 97.7 F 64 18 150/108 98 06/29/17 07:23 06/29/17 11:08 06/29/17 08:26 06/29/17 11:11 06/29/17 08:16 General appearance: Present: no acute distress - EENT Eyes: Present: PERRL, EOM intact ENT: hearing intact, clear oral mucosa - Neck Neck: Present: supple, normal ROM. Absent: masses or JVD - Respiratory Respiratory effort: normal Respiratory: bilateral: CTA - Cardiovascular Rhythm: regular Heart Sounds: Present: S1 & S2 - Extremities Extremities: abnormal (Emil. BKA) - Abdominal General gastrointestinal: Present: soft, non-tender. Absent: hepatomegaly, splenomegaly - Rectal Rectal Exam: deferred - Musculoskeletal Musculoskeletal: strength equal bilaterally - Neurologic Neurologic: no focal deficits Plan Activity: advance as tolerated Diet: regular, low fat, low cholesterol, low salt, diabetic, low protein, renal Special Instructions: restrict fluid intake to (1000 ml/day) Additional Instructions: f/u with hemodyalysis and nephrology per their instructions Follow up with: LEBRON ROGER MD [Primary Care Provider] - 3-5 Days
--- NOTE | 2017-06-29 13:21 | Vascular Lab Report ---
LOWER EXTREMITY VENOUS DUPLEX: REASON FOR EXAM: Pain of the lower extremities. COMMENTS ON THE RIGHT: All veins visualized are freely compressible without evidence of internal echogenicity. Flow is spontaneous and phasic throughout. COMMENTS ON THE LEFT: All veins visualized are freely compressible without evidence of internal echogenicity. Flow is spontaneous and phasic throughout. IMPRESSION: No evidence of acute or chronic deep venous thrombosis in either lower extremity.
[2017-06-29] MEDS ORDERED: KIONEX PO ONE (13:27)
[2017-06-29 15:24] VITALS: BP 151/63
[2017-07-01 05:00] LABS: Albumin 3.6 g/dL (3.8-4.8); Gamma Globulin 1.4 g/dL (0.8-1.7)
== END 2017-06-29 16:55 | disposition home or self-care (01) | DRG 252 ==
LOC: ED 12:09 → 3A 17:11
PROVIDERS: ADMIT Internal Medicine; ATTEND Internal Medicine
PROC: 5A1D70Z Performance of Urinary Filtration, Intermittent, Less than 6 Hours Per Day (ICD-10-PCS; 2017-06-24)
PROC: 5A1D70Z Performance of Urinary Filtration, Intermittent, Less than 6 Hours Per Day (ICD-10-PCS; 2017-06-25)
PROC: 037Y3ZZ Dilation of Upper Artery, Percutaneous Approach (ICD-10-PCS; principal; 2017-06-28)
PROC: B51W1ZZ Fluoroscopy of Dialysis Shunt/Fistula using Low Osmolar Contrast (ICD-10-PCS; 2017-06-28)
PROC: B31H1ZZ Fluoroscopy of Right Upper Extremity Arteries using Low Osmolar Contrast (ICD-10-PCS; 2017-06-28)
PROC: 5A1D70Z Performance of Urinary Filtration, Intermittent, Less than 6 Hours Per Day (ICD-10-PCS; 2017-06-28)
DX: T82.590A Other mechanical complication of surgically created arteriovenous fistula, initial encounter (principal); N18.6 End stage renal disease; I50.23 Acute on chronic systolic (congestive) heart failure; I13.2 Hypertensive heart and chronic kidney disease with heart failure and with stage 5 chronic kidney disease, or end stage renal disease; K80.20 Calculus of gallbladder without cholecystitis without obstruction; E87.5 Hyperkalemia; D63.1 Anemia in chronic kidney disease; I16.0 Hypertensive urgency; I25.10 Atherosclerotic heart disease of native coronary artery without angina pectoris; Y83.8 Other surgical procedures as the cause of abnormal reaction of the patient, or of later complication, without mention of misadventure at the time of the procedure; R74.0 Nonspecific elevation of levels of transaminase and lactic acid dehydrogenase [LDH]; E11.22 Type 2 diabetes mellitus with diabetic chronic kidney disease; I48.91 Unspecified atrial fibrillation; E11.51 Type 2 diabetes mellitus with diabetic peripheral angiopathy without gangrene; K21.9 Gastro-esophageal reflux disease without esophagitis; E87.8 Other disorders of electrolyte and fluid balance, not elsewhere classified; D69.6 Thrombocytopenia, unspecified; M19.90 Unspecified osteoarthritis, unspecified site; J44.9 Chronic obstructive pulmonary disease, unspecified; Z95.810 Presence of automatic (implantable) cardiac defibrillator; Z99.2 Dependence on renal dialysis; Y92.89 Other specified places as the place of occurrence of the external cause; Z86.73 Personal history of transient ischemic attack (TIA), and cerebral infarction without residual deficits; Z79.899 Other long term (current) drug therapy; I25.2 Old myocardial infarction; Z89.512 Acquired absence of left leg below knee; Z89.511 Acquired absence of right leg below knee; Z79.82 Long term (current) use of aspirin; Z82.49 Family history of ischemic heart disease and other diseases of the circulatory system; Z83.3 Family history of diabetes mellitus
CPT/HCPCS: 36415; 36902; 80048; 80053; 80061; 80320; 82550; 82553; 82607; 82728; 82747; 82947; 82962; 83880; 84132; 84165; 84484; 85025; 85027; 85049; 86334; 93970; 94640; 94760; 96374; A9270-GY; C1725; C1751; C1769; C1894; G0480; J0690; J1644; J1815; J1940; J2250; J2405; J3010; J7030; J7040; Q0162; Q9967

== ENCOUNTER 2017-11-27 11:57 | Observation (INO) | payer MEDICARE ==
[~2017-11-27 11:57] MED LIST: ANCEF/STERILE WATER 2 GM/20 ML 2 GM/20 ML SYRINGE IV NR; HEPARIN 10,000 UNITS/10 ML ONE; MARCAINE 0.5% 30 ML INFILTRATI ONE; NACL 0.9% 50 ML ONE; NACL 0.9% 500 ML 500 ML ONE; PAPAVERINE ONE; SODIUM BICARBONATE ONE; XYLOCAINE 1% 20 mL ONE
[2017-11-27] MEDS: NACL 0.9% 1000 ML 1,000 ML IV SCH (12:55)
--- NOTE | 2017-11-27 13:12 | Anesthesia Consultation ---
Anesthesia Consult and Med Hx Date of service: 11/27/17 - Airway Anesthetic Teeth Evaluation: Poor ROM Head & Neck: Adequate Mental/Hyoid Distance: Adequate Mallampati Class: Class II Intubation Access Assessment: Probably Good - Pulmonary Exam CTA: Yes - Cardiac Exam Cardiac Exam: RRR - Pre-Operative Health Status ASA Pre-Surgery Classification: ASA4 Proposed Anesthetic Plan: General - Pulmonary Hx Smoking: Yes Hx Asthma: Yes COPD: Yes - Cardiovascular System Hx Hypertension: Yes Hx Coronary Artery Disease: Yes Hx Heart Attack/AMI: Yes Hx Internal Defibrillator: Yes (2004, replaced 2013) Hx Peripheral Vascular Disease: Yes - Central Nervous System CVA: Yes (2012) Hx Psychiatric Problems: Yes - Gastrointestinal Hx Gastroesophageal Reflux Disease: Yes (hospitalized for reflux 07/08/14) - Endocrine Hx Renal Disease: Yes Hx End Stage Renal Disease: Yes Hx Insulin Dependent Diabetes: Yes - Other Systems Hx Cancer: No
--- NOTE | 2017-11-27 13:12 | Anesthesia Day of Surgery ---
Anesthesia Day of Surgery - Day of Surgery Patient Examined: Yes Patient H&P Reviewed: Yes Patient is NPO: Yes Beta Blockers: Yes
[2017-11-27 13:19] LABS: Calcium 9.3 mg/dL (8.4-10.2)
[2017-11-27 13:42] LABS: Hematocrit 34.1 % (35.5-45.6); Hemoglobin 10.8 gm/dl (11.8-15.2); Mean Corpuscular HGB Conc 32 % (32-34); Mean Corpuscular Hemoglobin 29 pg (28-32); Mean Corpuscular Volume 92 fl (84-94); Red Blood Count 3.69 M/mm3 (3.65-5.03); Red Cell Distribution Width 18.5 % (13.2-15.2)
[2017-11-27 13:44] LABS: Platelet Count 82 K/mm3 (140-440)
[2017-11-27] MEDS ORDERED: DIPRIVAN 10 MG/ML IV ONE (13:54)
[2017-11-27] MEDS ORDERED: SUBLIMAZE ONE (13:55)
[2017-11-27 14:25] LABS: Basophils % (Manual) 0 % (0.0-1.8); Giant Platelets 1+; RBC Morphology Normal; Total Cells Counted 100
[2017-11-27] MEDS ORDERED: D50W (25GM) Syringe IV ONE (14:34)
[2017-11-27] MEDS ORDERED: ZOFRAN ONE (15:11)
[2017-11-27] MEDS ORDERED: NACL 0.9% 250ML 250 ML ONE (15:44)
[2017-11-27] MEDS ORDERED: GELFOAM TP ONE (16:50)
[2017-11-27] MEDS ORDERED: THROMBIN (BOVINE) TP ONE (16:50)
[2017-11-27] MEDS ORDERED: ePHEDrine SULFATE ONE (16:56)
[2017-11-27] MEDS ORDERED: XYLOCAINE MPF 2% ONE (17:00)
[2017-11-27] MEDS ORDERED: NACL 0.9% 1000 ML 1,000 ML ONE (17:29)
[2017-11-27] MEDS: DILAUDID IV PRN ×2 (18:20→18:30)
[2017-11-27] MEDS ORDERED: ZOFRAN IV PRN (18:40)
[2017-11-27] MEDS ORDERED: TYLENOL PO PRN (18:40)
[2017-11-27] MEDS ORDERED: SODIUM CHLORIDE FLUSH SYRINGE 10 ML IV PRN (18:40)
[2017-11-27] MEDS ORDERED: NORCO 5/325 PO PRN (18:40)
--- NOTE | 2017-11-27 18:40 | Operative Report ---
Operative Report Operative Report: Date of Procedure: 11/27/2017 Pre-operative Diagnosis: Complications of Dialysis Access Post-operative Diagnosis: Same Procedure(s): 1. Creation of Left Arm Axillary Artery to Axillary Vein AV Loop Graft with [place] Hybrid 6 mm PTFE and 9 x 5 Viabahn Stent Graft 2. Fistulagram with Central Venogram 3. Angioplasty and Stent of Left Innominate Vein with 10 x 40 Balloon and 10 x 15 cm Viabahn Stent Graft 4. Radiologic Supervision with Interpretation Surgeon: Francisco Gonzalez M.D. Fruit Harvest Worker: None Anesthesia: GETA EBL: 200 mL Counts: Correct Complications: None Condition: Stable Findings: Successful creation of left arm AV graft with palpable thrill at the completion of the case. Specimen: None Indication: The patient is 72 year old male with a history of ESRD who is on HD through a right IJ permacath. He recently required ligation of a right arm khalida fistula secondary to gangrene of multiple digits of his right hand. He requires creation of left arm permanent access. He was given the risk, benefits , and alternative procedures and consented to the procedure. Description of Procedure: The patient was brought to the operating room and laid in supine position. After general endotracheal anesthesia was achieved his left arm was prepped and draped fashion. A longitudinal system was created on the medial aspect of the wound below the antecubital crease and carried down to the axillary vein using sharp dissection. I then dissected out the axillary artery using sharp dissection and controlled the proximal and distal with Vesseloops. A micropuncture needle was used to access the vein and retrograde fashion and the micropuncture sheath was placed a Seldinger technique. The wire and inner cannula were removed and a 0.035 Bentson wire was advanced to the central venous system under fluoroscopy. The micropuncture sheath was removed and a 14 [place] peel-away sheath was advanced. The dilator was removed and the hybrid graft was advanced over the wire and into the peel-away sheath. A 10 [place] sheath was then advanced over the wire and into the distal end of the hybrid graft to prevent bleeding. The sheath was peeled away while applying for pressure on the hybrid graft. The stent graft portion of the hybrid graft was then deployed through the venotomy and approximately 4 cm of the stent graft in the vein. I performed a central venogram that demonstrated that his left innominate vein was patent but approximately 50% stenosis, secondary to pacing wires. It was previously occluded but recently underwent angioplasty. I advanced a 10 x 15 cm Viabahn stent graft into position with approximately 2 cm of overlap into the stent graft portion of the hybrid graft. I then post dilated the stent graft and overlap using a 10 x 40 Conquest balloon. The follow up fistulagram demonstrated a widely patent innominate vein. I created a counterincision and then using Evon-Wick tunneler to tunnel from the counterincision laterally to the axillary incision and pulled the graft to that tunnel. I then tunneled from the axillary incision back to the counterincision and pulled the graft through the tunnel in preparation for the arterial anastomosis. I cut the graft to length and beveled the end and then heparinized the patient. I then used angled DeBakey clamps to control the artery and created an arteriotomy using an 11 blade and Gallegos scissors and then created an end-to-side anastomosis using a 6-0 Prolene in running fashion. Prior to completing the anastomosis I flushed the artery and then completed the anastomosis. Upon completion of that anastomosis I released the clamps allowed flow into the graft which had a palpable thrill. Hemostasis within the wound was achieved with a combination of quick clot and thrombin-soaked Gelfoam. Once hemostasis was achieved the wounds were anesthetized with 0.5% Marcaine and closed in 2 layers using running 3-0 Vicryl and running fashions G dermal layer and 4-0 Monocryl in a running fashion and the subcuticular layer and dressed with Dermabond. The patient tolerated the procedure well. All sponge, needle, and instrument counts were correct. The patient was taken to the recovery area in stable condition.
[2017-11-27] MEDS ORDERED: PROAIR IH PRN (18:42)
[2017-11-27] MEDS ORDERED: PROVENTIL IH PRN (19:10)
[2017-11-27] MEDS ORDERED: TYLENOL PO ONE (19:30)
--- NOTE | 2017-11-27 21:02 | Post Anesthesia Evaluation ---
- Post Anesthesia Evaluation Patient Participated: Yes Airway Patent: Yes Stable Respiratory Function: Yes Nausea/Vomiting: No Temp > 96.8F: Yes Pain Manageable: Yes Adequeate Hydration: Yes Anesthesia Complications: No Block Receding Appropriately: Not Applicable Patient on Ventilator: No
[2017-11-27] MEDS ORDERED: ASPART SUB-Q SCH (22:00)
[2017-11-27] MEDS ORDERED: PRAVACHOL PO SCH (22:00)
[2017-11-27] MEDS ORDERED: INSULIN ASPART PROT SUB-Q SCH (22:00)
[2017-11-27] MEDS ORDERED: NON-FORMULARY (Simvastatin 10 MG) PO SCH (22:00)
[2017-11-27] MEDS: HumaLOG SUB-Q SCH (22:44)
[2017-11-27] MEDS: COREG PO SCH (23:17)
[2017-11-27] MEDS: CLEOCIN PO SCH (23:18)
[2017-11-27] MEDS: ELIQUIS PO SCH (23:19)
[2017-11-27] MEDS: SODIUM CHLORIDE FLUSH SYRINGE 10 ML IV SCH (23:22)
[2017-11-28] MEDS: NACL 0.9% 1000 ML 1,000 ML IV SCH (03:26)
[2017-11-28] MEDS: CLEOCIN PO SCH ×2 (06:28→16:51)
[2017-11-28] MEDS ORDERED: D50W (25GM) Syringe IV ONE (07:15)
[2017-11-28] MEDS ORDERED: D50W (25GM) Vial IV PRN (07:24)
[2017-11-28] MEDS: HumaLOG SUB-Q SCH ×3 (07:45→15:20)
[2017-11-28] MEDS ORDERED: D50W (25GM) Syringe IV PRN (07:53)
[2017-11-28] MEDS ORDERED: NACL 0.9% 100 ML IV PRN (08:37)
[2017-11-28 09:05] LABS: Calcium 8.7 mg/dL (8.4-10.2)
[2017-11-28 09:08] LABS: Hemoglobin 10.4 gm/dl (11.8-15.2); Mean Corpuscular HGB Conc 31 % (32-34); Mean Corpuscular Hemoglobin 30 pg (28-32); Mean Corpuscular Volume 94 fl (84-94); Red Blood Count 3.52 M/mm3 (3.65-5.03); Red Cell Distribution Width 19.2 % (13.2-15.2)
[2017-11-28 09:09] LABS: Platelet Count 73 K/mm3 (140-440)
[2017-11-28] MEDS ORDERED: NON-FORMULARY (Tiotropium Bromide [Spiriva Respimat] 2 PUFF) IH SCH (10:00)
[2017-11-28] MEDS ORDERED: SPIRIVA IH SCH (10:00)
[2017-11-28] MEDS ORDERED: COZAAR PO SCH (10:00)
--- NOTE | 2017-11-28 10:37 | Consultation ---
History of Present Illness - Reason for Consult Consult date: 11/28/17 end stage renal disease Requesting physician: INDER ZEPEDA - History of Present Illness This is a 72 yo AAM with PMHx of end-stage renal disease on hemodialysis on TTS chedule. Patient also has type 2 diabetes mellitus, hypertension and peripheral vascular disease. He has had bilateral below-knee amputations. Who was recently hospitalized for right middle finger gangrene, requiring AVF ligation. Now admitted for new AVG placement, pt s/p creation of LUE axillary artery to axillary vein AV loop graft on 11/27/17. Renal consult is requested for management of ESRD/HD Past History Past Medical History: atrial fib, CAD, ESRD, hypertension, PVD Past Surgical History: Other (bilateral below-knee amputations, AV fistula placement right upper extremity, AICD placement in 2004 and 2013) Social history: , lives with family. denies: smoking, alcohol abuse, prescription drug abuse, IV drug use Family history: diabetes, hypertension Medications and Allergies Allergies Allergy/AdvReac Type Severity Reaction Status Date / Time No Known Allergies Allergy Verified 11/26/17 10:08 Home Medications Medication Instructions Recorded Confirmed Last Taken Type Losartan [Cozaar] 50 mg PO DAILY 06/02/17 11/27/17 11/27/17 08:00 History Simvastatin [Zocor TAB] 10 mg PO QHS 06/02/17 11/27/17 11/26/17 20:00 History Apixaban [Eliquis] 5 mg PO BID 11/10/17 11/27/17 11/27/17 08:00 History Insulin Aspart Prot/Aspart(Nf) 10 units SUB-Q BID 11/10/17 11/26/17 Unknown History [NovoLOG Mix 70/30 VIAL] Tiotropium [place] [Spiriva 2 puff IH QDAY 11/10/17 11/26/17 Unknown History Respimat] Carvedilol [Coreg] 12.5 mg PO BID #60 tablet 11/15/17 11/27/17 11/27/17 08:00 Rx Clindamycin [Clindamycin CAP] 450 mg PO Q8HR 5 Days capsule 11/15/17 11/27/17 11/26/17 19:00 Rx HYDROcodone/ACETAMINOPHEN [[place] 1 each PO Q8H #20 tablet 11/15/17 11/26/17 Unknown Rx 5-325 Tablet] ALBUTEROL Inhaler [Proair] 2 puff IH QID PRN 11/26/17 11/27/17 11/26/17 12:00 History Active Meds: Active Medications Acetaminophen (Tylenol) 650 mg PO Q4H PRN PRN Reason: Pain MILD(1-3)/Fever >100.5/DYE Acetaminophen/Hydrocodone Bitart ([place] 5/325) 2 each PO Q6H PRN PRN Reason: Pain, Moderate (4-6) Last Admin: 11/27/17 23:16 Dose: 2 each Albuterol (Proventil) 2.5 mg IH QID PRN PRN Reason: Shortness Of Breath Apixaban (Eliquis) 5 mg PO BID [facility]; Protocol Last Admin: 11/27/17 23:19 Dose: 5 mg Carvedilol (Coreg) 12.5 mg PO BID [facility] Last Admin: 11/27/17 23:17 Dose: 12.5 mg Clindamycin HCl (Cleocin) 450 mg PO Q8HR [facility] Last Admin: 11/28/17 06:28 Dose: 450 mg Dextrose (D50w (25gm) Syringe) 50 ml IV PRN PRN PRN Reason: Hypoglycemia Sodium Chloride (Nacl 0.9% 1000 Ml) 1,000 mls @ 42 mls/hr IV DIRECT [facility] Last Admin: 11/28/17 03:26 Dose: 42 mls/hr Sodium Chloride (Nacl 0.9%) 100 mls @ 999 mls/hr IV CHAZ PRN PRN Reason: Hypotension Insulin Human Isoph/Insulin Regular (Humulin 70/30) 10 unit SUB-Q BIDDIAB [facility] Last Admin: 11/27/17 23:20 Dose: 10 unit Insulin Human Lispro (Humalog) 0 unit SUB-Q ACHS [facility]; Protocol Last Admin: 11/27/17 22:44 Dose: Not Given Losartan Potassium (Cozaar) 50 mg PO DAILY [facility] Ondansetron HCl (Zofran) 4 mg IV Q8H PRN PRN Reason: Nausea And Vomiting Pravastatin Sodium (Pravachol) 10 mg PO QHS [facility] Last Admin: 11/27/17 23:17 Dose: 10 mg Sodium Chloride (Sodium Chloride Flush Syringe 10 Ml) 10 ml IV BID [facility] Last Admin: 11/27/17 23:22 Dose: 10 ml Sodium Chloride (Sodium Chloride Flush Syringe 10 Ml) 10 ml IV PRN PRN PRN Reason: LINE FLUSH Tiotropium [place] (Spiriva) 2 puff IH QDAY [facility] Review of Systems All systems: negative Integumentary: other (pain at surgical site ) Exam - Vital Signs Vital signs: Vital Signs Temp Pulse Resp BP Pulse Ox 98.5 F 56 L 16 190/71 99 11/27/17 11:25 11/27/17 11:25 11/27/17 11:25 11/27/17 11:25 11/27/17 11:25 - General Appearance General appearance: appears stated age, chronically ill EENT: ATNC, PERRL, mucous membranes moist Neck: Present: neck supple Respiratory: Clear to Ascultation Heart: regular, S1S2 Gastrointestinal: Present: normoactive bowel sounds Integumentary: no rash, other (b/l BKA ) Neurologic: no focal deficit, alert and oriented x3, strength 5/5, CN 3-12 intact Psychiatric: mood/affect appropriate, cooperative Results - Lab Results 11/28/17 08:28 11/28/17 08:28 Most recent lab results Calcium 8.7 mg/dL (8.4-10.2) 11/28/17 08:28 Assessment and Plan - Patient Problems (1) ESRD (end stage renal disease) Current Visit: No Status: Acute Plan to address problem: HD today, to cont TTS schedule. discussed with HD nurse. Stable for discharge from renal stand point after HD (2) Hypertensive chronic kidney disease with stage 5 chronic kidney disease or end stage renal disease Current Visit: No Status: Acute Plan to address problem: BP controlled (3) Type 2 diabetes mellitus with diabetic nephropathy Current Visit: No Status: Acute Plan to address problem: glucose control as per primary attending (4) Anemia due to chronic kidney disease Current Visit: No Status: Chronic Plan to address problem: Hb at target, cont mircera as outpatient
--- NOTE | 2017-11-28 11:13 | Short Stay Summary ---
Short Stay Documentation Date of service: 11/28/17 Narrative H&P: See H&P - Allergies and Medications Current Medications: Allergies No Known Allergies Allergy (Verified 11/26/17 10:08) Home Medications Medication Instructions Recorded Confirmed Last Taken Type Losartan [Cozaar] 50 mg PO DAILY 06/02/17 11/27/17 11/27/17 08:00 History Simvastatin [Zocor TAB] 10 mg PO QHS 06/02/17 11/27/17 11/26/17 20:00 History Apixaban [Eliquis] 5 mg PO BID 11/10/17 11/27/17 11/27/17 08:00 History Insulin Aspart Prot/Aspart(Nf) 10 units SUB-Q BID 11/10/17 11/26/17 Unknown History [NovoLOG Mix 70/30 VIAL] Tiotropium [place] [Spiriva 2 puff IH QDAY 11/10/17 11/26/17 Unknown History Respimat] Carvedilol [Coreg] 12.5 mg PO BID #60 tablet 11/15/17 11/27/17 11/27/17 08:00 Rx Clindamycin [Clindamycin CAP] 450 mg PO Q8HR 5 Days capsule 11/15/17 11/27/17 11/26/17 19:00 Rx HYDROcodone/ACETAMINOPHEN [[place] 1 each PO Q8H #20 tablet 11/15/17 11/26/17 Unknown Rx 5-325 Tablet] ALBUTEROL Inhaler [Proair] 2 puff IH QID PRN 11/26/17 11/27/17 11/26/17 12:00 History Active Medications Acetaminophen (Tylenol) 650 mg PO Q4H PRN PRN Reason: Pain MILD(1-3)/Fever >100.5/DYE Acetaminophen/Hydrocodone Bitart ([place] 5/325) 2 each PO Q6H PRN PRN Reason: Pain, Moderate (4-6) Last Admin: 11/27/17 23:16 Dose: 2 each Albuterol (Proventil) 2.5 mg IH QID PRN PRN Reason: Shortness Of Breath Apixaban (Eliquis) 5 mg PO BID [facility]; Protocol Last Admin: 11/27/17 23:19 Dose: 5 mg Carvedilol (Coreg) 12.5 mg PO BID [facility] Last Admin: 11/27/17 23:17 Dose: 12.5 mg Clindamycin HCl (Cleocin) 450 mg PO Q8HR [facility] Last Admin: 11/28/17 06:28 Dose: 450 mg Dextrose (D50w (25gm) Syringe) 50 ml IV PRN PRN PRN Reason: Hypoglycemia Sodium Chloride (Nacl 0.9% 1000 Ml) 1,000 mls @ 42 mls/hr IV DIRECT GRACIE Last Admin: 11/28/17 03:26 Dose: 42 mls/hr Sodium Chloride (Nacl 0.9%) 100 mls @ 999 mls/hr IV CHAZ PRN PRN Reason: Hypotension Insulin Human Isoph/Insulin Regular (Humulin 70/30) 10 unit SUB-Q BIDDIAB [facility] Last Admin: 11/27/17 23:20 Dose: 10 unit Insulin Human Lispro (Humalog) 0 unit SUB-Q ACHS [facility]; Protocol Last Admin: 11/27/17 22:44 Dose: Not Given Losartan Potassium (Cozaar) 50 mg PO DAILY [facility] Ondansetron HCl (Zofran) 4 mg IV Q8H PRN PRN Reason: Nausea And Vomiting Pravastatin Sodium (Pravachol) 10 mg PO QHS [facility] Last Admin: 11/27/17 23:17 Dose: 10 mg Sodium Chloride (Sodium Chloride Flush Syringe 10 Ml) 10 ml IV BID [facility] Last Admin: 11/27/17 23:22 Dose: 10 ml Sodium Chloride (Sodium Chloride Flush Syringe 10 Ml) 10 ml IV PRN PRN PRN Reason: LINE FLUSH Tiotropium [place] (Spiriva) 2 puff IH QDAY [facility] - Hospital course Hospital course: The patient was admitted and underwent creation of a left arm AV graft. He tolerated the procedure well and was admitted for observation and dialysis postoperatively. On postoperative day #1 he continues to do well and will be discharged after his dialysis session. The patient underwent the following procedure. Operative Report: Date of Procedure: 11/27/2017 Pre-operative Diagnosis: Complications of Dialysis Access Post-operative Diagnosis: Same Procedure(s): 1. Creation of Left Arm Axillary Artery to Axillary Vein AV Loop Graft with [place] Hybrid 6 mm PTFE and 9 x 5 Viabahn Stent Graft 2. Fistulagram with Central Venogram 3. Angioplasty and Stent of Left Innominate Vein with 10 x 40 Balloon and 10 x 15 cm Viabahn Stent Graft 4. Radiologic Supervision with Interpretation Surgeon: Francisco Gonzalez M.D. Director Of Physiotherapy Services: None Anesthesia: GETA EBL: 200 mL Counts: Correct Complications: None Condition: Stable Findings: Successful creation of left arm AV graft with palpable thrill at the completion of the case. Specimen: None Indication: The patient is 72 year old male with a history of ESRD who is on HD through a right IJ permacath. He recently required ligation of a right arm khalida fistula secondary to gangrene of multiple digits of his right hand. He requires creation of left arm permanent access. He was given the risk, benefits , and alternative procedures and consented to the procedure. Description of Procedure: The patient was brought to the operating room and laid in supine position. After general endotracheal anesthesia was achieved his left arm was prepped and draped fashion. A longitudinal system was created on the medial aspect of the wound below the antecubital crease and carried down to the axillary vein using sharp dissection. I then dissected out the axillary artery using sharp dissection and controlled the proximal and distal with Vesseloops. A micropuncture needle was used to access the vein and retrograde fashion and the micropuncture sheath was placed a Seldinger technique. The wire and inner cannula were removed and a 0.035 Bentson wire was advanced to the central venous system under fluoroscopy. The micropuncture sheath was removed and a 14 [place] peel-away sheath was advanced. The dilator was removed and the hybrid graft was advanced over the wire and into the peel-away sheath. A 10 [place] sheath was then advanced over the wire and into the distal end of the hybrid graft to prevent bleeding. The sheath was peeled away while applying for pressure on the hybrid graft. The stent graft portion of the hybrid graft was then deployed through the venotomy and approximately 4 cm of the stent graft in the vein. I performed a central venogram that demonstrated that his left innominate vein was patent but approximately 50% stenosis, secondary to pacing wires. It was previously occluded but recently underwent angioplasty. I advanced a 10 x 15 cm Viabahn stent graft into position with approximately 2 cm of overlap into the stent graft portion of the hybrid graft. I then post dilated the stent graft and overlap using a 10 x 40 Conquest balloon. The follow up fistulagram demonstrated a widely patent innominate vein. I created a counterincision and then using Evon-Enrico tunneler to tunnel from the counterincision laterally to the axillary incision and pulled the graft to that tunnel. I then tunneled from the axillary incision back to the counterincision and pulled the graft through the tunnel in preparation for the arterial anastomosis. I cut the graft to length and beveled the end and then heparinized the patient. I then used angled DeBakey clamps to control the artery and created an arteriotomy using an 11 blade and Gallegos scissors and then created an end-to-side anastomosis using a 6-0 Prolene in running fashion. Prior to completing the anastomosis I flushed the artery and then completed the anastomosis. Upon completion of that anastomosis I released the clamps allowed flow into the graft which had a palpable thrill. Hemostasis within the wound was achieved with a combination of quick clot and thrombin-soaked Gelfoam. Once hemostasis was achieved the wounds were anesthetized with 0.5% Marcaine and closed in 2 layers using running 3-0 Vicryl and running fashions G dermal layer and 4-0 Monocryl in a running fashion and the subcuticular layer and dressed with Dermabond. The patient tolerated the procedure well. All sponge, needle, and instrument counts were correct. The patient was taken to the recovery area in stable condition. - Disposition Condition at discharge: Good Disposition: [id number] TO HOME OR SELFCARE Short Stay Discharge Plan Activity: other (no heavy lifting with left arm) Wound: open to air, keep clean and dry, other (okay to wash the left arm wound with soap and water but do not soak in water) Follow up with: FRANCISCO GONZALEZ MD [Staff Physician] - 14 Days
[2017-11-28 11:28] LABS: Band Neutrophils # (Manual) 0.2 K/mm3; Basophils % (Manual) 0 % (0.0-1.8); Total Cells Counted 100
[2017-11-28 11:29] LABS: Large Platelets Few; Macrocytosis 1+; Platelet Estimate Cons
[2017-11-28 15:37] VITALS: BP 130/54
[2017-11-28] MEDS: COREG PO SCH (16:50)
[2017-11-28] MEDS: ELIQUIS PO SCH (16:50)
[2017-11-28] MEDS: SODIUM CHLORIDE FLUSH SYRINGE 10 ML IV SCH (16:52)
== END 2017-11-28 18:24 | disposition home or self-care (01) ==
LOC: OR 11:57 → 3B-SURG 18:40
PROVIDERS: ADMIT Surgery Vascular Surgery; ATTEND Surgery Vascular Surgery
DX: T82.49XA Other complication of vascular dialysis catheter, initial encounter (principal); N18.6 End stage renal disease; I70.298 Other atherosclerosis of native arteries of extremities, other extremity; L03.011 Cellulitis of right finger; G45.8 Other transient cerebral ischemic attacks and related syndromes; Z79.899 Other long term (current) drug therapy
CPT/HCPCS: 36415; 36830; 80048; 82962; 85007; 85025; 94760; 96372; 96374; A4649; A9270; C1725; C1757; C1768; C1769; C1874; C1894; G0378; J0690; J1170; J1644; J2405; J2440; J2704; J3010; J7030; J7040; J7050; Q9966; G0257; J1815